=== PATIENT | female | born 1965 | race Caucasian/White ===

== ENCOUNTER 2016-11-01 16:34 | Inpatient (IN) | payer MEDICARE ==
[2016-11-01 16:34] VITALS: BMI 33.1
--- NOTE | 2016-11-01 17:19 | ED PDOC ---
HPI: Chest Pain Time Seen by Provider: 11/01/16 16:35 Chief Complaint (Nursing): Chest Pain Chief Complaint (Provider): Left sided chest pain History Per: Patient History/Exam Limitations: no limitations Onset/Duration Of Symptoms: Hrs Current Symptoms Are (Timing): Still Present Severity: None Additional Complaint(s): The patient is a 51yo female, PMHx of Afib with ablation done in 2012, anxiety, HTN, hyperthyroidsm, GERD, presents to the ED via EMS for evaluation of left sided chest pain and generalized discomfort. Pt reports today around 1400, she was at home and felt dizzy and nauseous - states she lied down for 20 mins after which her symptoms resolved. Pt states she originally though her symptoms were due to an anxiety attack. Then reports while outside, around 1515, she had another episode of nausea accompanied with left sided chest pain, states she felt her heart race and as if she was going to fall. Pt also reports nausea and dizziness during the seconds episode of her symptoms. Pt states she currently "feels very sick". She reports she takes a baby aspirin daily. She offers no additional medical complaints. Ablation done under Dr. Alexander at [facility] in 2012. Of note, pt reports she had one episode of AFib since the ablation. Pt currently follows up with [facility] Past Medical History Reviewed: Historical Data, Nursing Documentation, Vital Signs Vital Signs: Last Vital Signs Temp 98.8 F 11/06/16 13:00 Pulse 104 H 11/06/16 13:00 Resp 18 11/06/16 13:00 BP 120/89 11/06/16 13:00 Pulse Ox 95 11/06/16 13:00 - Medical History PMH: Anemia, Anxiety, Arthritis, Atrial Fibrillation (s/p Heart Catheter Ablation in 2012), Cardia Arrhythmia (A-FIB/HAD ABLATION), Depression, Fractures (R ankle), HTN, Hyperthyroidism, Kidney Stones (STILL THERE "TINY"), Migraine, Pneumonia, Seizures (ALLERGIC REACTION TO IV IODINE) Denies: Chronic Kidney Disease - Surgical History Surgical History: Cholecystectomy (1997) Other surgeries: hysterectomy, right ankle surgery, left knee surgery, fibroid removal - Family History Family History: States: Hypertension - Home Medications Home Medications: Ambulatory Orders Medication Instructions Recorded Desvenlafaxine Succinate [Pristiq] 50 mg PO HS 11/01/16 Ergocalciferol (Vitamin D2) 50,000 units PO QWK 11/01/16 [Vitamin D] Gabapentin [Neurontin] 600 mg PO QID 11/01/16 Omeprazole 20 mg PO DAILY 11/01/16 Oxycodone HCl/Acetaminophen 1 tab PO Q6 PRN 11/01/16 [Percocet 7.5-325 mg Tablet] Valsartan/Hydrochlorothiazide 1 tab PO DAILY 11/01/16 [Diovan Hct 160-12.5 mg Tab] busPIRone [Buspar] 10 mg PO TID 11/01/16 methIMAzole [Tapazole] 10 mg PO MWF 11/01/16 Propranolol [Inderal] 10 mg PO BID #60 tab 11/06/16 - Allergies Allergies/Adverse Reactions: Allergies Allergy/AdvReac Type Severity Reaction Status Date / Time cefazolin sodium [From Anc] Allergy RASH Verified 07/13/15 07:37 iodine Allergy convulsions Verified 07/13/15 07:37 meperidine HCl [From Demerol] AdvReac anxiety Verified 07/13/15 07:37 prochlorperazine AdvReac anxiety Verified 07/13/15 07:37 [From Compazine] prochlorperazine edisylate AdvReac anxiety Verified 07/13/15 07:37 [From Compazine] prochlorperazine maleate AdvReac anxiety Verified 07/13/15 07:37 [From Compazine] Review of Systems ROS Statement: Except As Marked, All Systems Reviewed And Found Negative Constitutional: Positive for: Other (general discomfort) Cardiovascular: Positive for: Chest Pain, Light Headedness Gastrointestinal: Positive for: Nausea Psych: Positive for: Anxiety Physical Exam - Reviewed Nursing Documentation Reviewed: Yes Vital Signs Reviewed: Yes - Physical Exam Appears: Positive for: Well, Non-toxic, No Acute Distress Head Exam: Positive for: ATRAUMATIC, NORMAL INSPECTION, NORMOCEPHALIC Skin: Positive for: Normal Color, Warm Eye Exam: Positive for: Normal appearance Neck: Positive for: Normal, Supple Cardiovascular/Chest: Positive for: Bradycardia Respiratory: Positive for: Normal Breath Sounds. Negative for: Respiratory Distress Gastrointestinal/Abdominal: Positive for: Normal Exam Extremity: Negative for: Pedal Edema, Calf Tenderness, Deformity, Swelling Neurologic/Psych: Positive for: Alert, Oriented. Negative for: Motor/Sensory Deficits - Laboratory Results Result Diagrams: 11/02/16 05:00 11/06/16 05:00 - ECG Interpretation Of ECG: Atrial fibrillation Rapid ventricular response No ST elevation Rate: 104 Time: 2004 Repeat EKG shows rate decreased to 80 but pt still in AFib. Rate: 104 O2 Sat by Pulse Oximetry: 98 (RA) Pulse Ox Interpretation: Normal Medical Decision Making Medical Decision Making: Time: 1649 Impression: Recurrence of AFib r/o CAD Plan: -- CBC -- CMP -- Troponin -- CXR -- Cardizem Reassess Time: 1944 Case discussed with family practice resident who is aware. Pt to be admitted to telemetry. Time: [address] Younger, questioned documents examiner functional manager. Time: [address] Barrera who is aware. Scribe Attestation: Documented by Sandy Saab acting as a scribe for Nadia Turpin MD. Provider Attestation: All medical record entries made by the Scribe were at my direction and personally dictated by me. I have reviewed the chart and agree that the record accurately reflects my personal performance of the history, physical exam, medical decision making, and the department course for this patient. I have also personally directed, reviewed, and agree with the discharge instructions and disposition. Disposition - Clinical Impression Clinical Impression: Acute chest pain - Patient ED Disposition Is Patient to be Admitted: Yes - Disposition Disposition Time: 18:00 Condition: GOOD
--- NOTE | 2016-11-01 17:43 | RAD ---
HISTORY: Chest pain COMPARISON: 09/16/2010. TECHNIQUE: Chest PA and lateral FINDINGS: LUNGS: The lungs are well inflated and clear. PLEURA: No significant pleural effusion identified. No pneumothorax apparent. CARDIOVASCULAR: Normal. OSSEOUS STRUCTURES: No significant abnormalities. VISUALIZED UPPER ABDOMEN: Normal. OTHER FINDINGS: None. IMPRESSION: No active pulmonary disease.
[2016-11-01 18:07] LABS: BASO # 0.1 K/uL (0.0-0.2); BASO % 0.8 % (0.0-2.0); HEMOGLOBIN 14.5 g/dL (12.0-16.0); LYMPH # 1.3 K/uL (1.0-4.3); LYMPH % 20.4 % (20.0-40.0); MEAN CELL VOLUME 84.7 fl (81.0-99.0); MEAN CORPUSCULAR HEMOGLOBIN 28.1 pg (27.0-31.0); MEAN CORPUSCULAR HGB CONC 33.2 g/dL (33.0-37.0); MEAN PLATELET VOLUME 9.3 fl (7.2-11.7); MONO # 0.3 K/uL (0.0-0.8); MONO % 4.8 % (0.0-10.0); NEUT # 4.8 K/uL (1.8-7.0); NRBC % 0.1 % (0.0-0.0); RBC 5.14 Mil/uL (3.80-5.20); WHITE BLOOD COUNT 6.5 K/uL (4.8-10.8)
[2016-11-01 18:12] LABS: ALB/GLOB RATIO 1.4 (1.0-2.1); ALBUMIN 4.7 g/dL (3.5-5.0); ALT/SGPT 211 U/L (9-52); AST/SGOT 249 U/L (14-36); BLOOD UREA NITROGEN 11 mg/dl (7-17); CALCIUM 9.4 mg/dL (8.4-10.2); GFR AFRICAN-AMERICAN > 60; GFR NON-AFRICAN AMERICAN > 60
[2016-11-01] MEDS ORDERED: Oxycodone/Acetaminophen 5/325 mg Tab PO PRN ×2 (20:41→21:51)
[2016-11-01] MEDS ORDERED: Dextrose 5%/0.45% NS 1,000 ML IV SCH (20:45)
--- NOTE | 2016-11-01 21:08 | CP.PCM.HP ---
History of Present Illness - History of Present Illness History of Present Illness: 51 yo F w PMHx of Afib w ablation 2012, GERD, and Hyperthyroidism is admitted due to nausea, dizziness, and intermittent left-sided chest pain. Her recent complaints began at 2pm this afternoon, when she became dizzy and attributed it to being a "panic attack." Soon thereafter, while in the checkout line in a store, she stated feeling a discomfort in the left side of her chest to go along with the new onset palpitations that she was feeling. She denies fevers/ chills, vomiting, diarrhea, diaphoresis, LOC, neck/jaw/arm pain, or abdominal pain. Back in 2012, she underwent an ablation to resolve her Afib, which was seemingly successful until 1-2 years ago when she had a short episode of Afib. Today barnett only the second time s/p ablation that she's experienced an episode of Afib. She also denies any SOB, dyspnea, cough, hematuria, or dysuria, but she does state often seeing Dr Fagan for significant chronic pain resulting from cervical disc herniations. PMD: None regularly Psych: Dr Atkinson Cosmetology Instructor: Dr Fagan PMHx: Afib s/p ablation w Dr. Alexander at [facility] in , Hyperthyroidism, GERD, chronic cervical and b/l shoulder pain PSHx: Ablation for Afib [place] [address] 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 SHx: denies etoh, cigarettes, illicit drugs FHx: None ED Course: -CBC -CMP -Troponin x1 -EKGs x2 -CXR -ASA 325 -Cardizem 30mg PO x1 -Cardizem 10mg IVP x1 Present on Admission - Present on Admission Any Indicators Present on Admission: No History of DVT/PE: No History of Uncontrolled Diabetes: No Urinary Catheter: No Decubitus Ulcer Present: No Review of Systems - Review of Systems All systems: reviewed and no additional remarkable complaints except (see HPI) Past Patient History - Past Medical History & Family History Past Medical History?: Yes - Past Social History Smoking Status: Never Smoked - CARDIAC Hx Atrial Fibrillation: Yes (s/p Heart Catheter Ablation in 2012) Hx Cardia Arrhythmia: Yes (A-FIB/HAD ABLATION) Hx Hypertension: Yes - PULMONARY Hx Pneumonia: Yes - NEUROLOGICAL Hx Migraine: Yes Hx Seizures: Yes (ALLERGIC REACTION TO IV IODINE) - HEENT Hx HEENT Problems: No - RENAL Hx Chronic Kidney Disease: No Hx Kidney Stones: Yes (STILL THERE "TINY") - ENDOCRINE/METABOLIC Hx Hyperthyroidism: Yes - HEMATOLOGICAL/ONCOLOGICAL Hx Anemia: Yes - INTEGUMENTARY Hx Dermatological Problems: No - MUSCULOSKELETAL/RHEUMATOLOGICAL Hx Arthritis: Yes Hx Fractures: Yes (R ankle) - GASTROINTESTINAL Hx Gastrointestinal Disorders: Yes Hx Gastroesophageal Reflux: Yes - GENITOURINARY/GYNECOLOGICAL Hx Genitourinary Disorders: No - PSYCHIATRIC Hx Anxiety: Yes Hx Depression: Yes - SURGICAL HISTORY Hx Cholecystectomy: Yes (1997) - ANESTHESIA Hx Anesthesia: Yes Meds Allergies/Adverse Reactions: Allergies Allergy/AdvReac Type Severity Reaction Status Date / Time cefazolin sodium [From Ancef] Allergy RASH Verified 07/13/15 07:37 iodine Allergy convulsions Verified 07/13/15 07:37 meperidine HCl [From Demerol] AdvReac anxiety Verified 07/13/15 07:37 prochlorperazine AdvReac anxiety Verified 07/13/15 07:37 [From Compazine] prochlorperazine edisylate AdvReac anxiety Verified 07/13/15 07:37 [From Compazine] prochlorperazine maleate AdvReac anxiety Verified 07/13/15 07:37 [From Compazine] Physical Exam - Constitutional Appears: Non-toxic, No Acute Distress - Head Exam Head Exam: ATRAUMATIC, NORMOCEPHALIC - Eye Exam Eye Exam: EOMI Pupil Exam: PERRL - ENT Exam ENT Exam: Mucous Membranes Moist - Neck Exam Neck exam: Positive for: Full Rom, Normal Inspection - Respiratory Exam Respiratory Exam: Clear to Auscultation Bilateral, NORMAL BREATHING PATTERN. absent: Wheezes - Cardiovascular Exam Cardiovascular Exam: Irregular Rhythm. absent: Tachycardia - GI/Abdominal Exam GI & Abdominal Exam: Normal Bowel Sounds, Soft, Tenderness (mildly RUQ and epigastric). absent: Firm, Rigid Additional comments: obese - Extremities Exam Extremities exam: Negative for: calf tenderness, pedal edema - Neurological Exam Neurological exam: Alert, Oriented x3 - Psychiatric Exam Psychiatric exam: Normal Affect, Normal Mood - Skin Skin Exam: Dry, Intact, Normal Color, Warm Results - Vital Signs Recent Vital Signs: Last Vital Signs Temp 97.9 F 11/01/16 19:26 Pulse 104 H 11/01/16 20:29 Resp 16 11/01/16 19:26 BP 108/65 11/01/16 19:26 Pulse Ox 98 11/01/16 20:29 - Labs Result Diagrams: 11/01/16 17:52 11/01/16 17:52 Assessment & Plan - Assessment and Plan (Free Text) Plan: 51 yo F w PMHx of Afib w ablation 2012, GERD, and Hyperthyroidism is admitted due to nausea, dizziness, and intermittent left-sided chest pain 1) Recurrent Afib -Previous h/o Afib with ablation done in 2012 and subsequent arrhythmia resolution -Dr Younger onboard -EKG confirmation of rhythm -Cardizem 10mg IVP x1 [ED] -Cardizem 30mg PO x1 [ED] -D5 1/2NS 1L had been given in preparation for NPO status; however, that was not to be the case as per Cardio -Lovenox 70 mg SC BID -Valsartan 160mg PO Daily (Home Med) -Hydrochlorothiazide 12.5mg PO Daily (Home Med) --d/c Norvasc 10mg (Home Med) as per Cardio --start Inderal 10mg BID as per Cardio -f/u Thyroid Panel -f/u further Cardio Recommendations 2) Elevated LFTs -Obesity VS Chronic Medication VS Tylenol Use (pt claims only beginning few days ago) -AST/ALT: 249/211, ALP: 160 -PT/INR/PTT: 11.7/1.0/35.3 -Considered Abd CT w IV Contrast to evaluate --However, scan cancelled as patient is allergic to IV Contrast -Instead, ordered RUQ U/S -d/c'ed Percocet 7.5 (Home Med) in favor of it's non-Tylenol half, Oxycodone -f/u Abd U/S -Consider GI Consult 3) Chest Pain r/o ACS -EKG indicated Afib, but no acute infarct observed -Troponin Neg x1 -f/u Troponin x2 -f/u EKG 4) Chronic Pain -Oxycodone 5mg PO Q6H PRN moderate -Oxycodone 7.5mg PO Q6H PRN severe -f/u management of pain -f/u LFTs for possible return to Percocet 7.5 (Home Med) -f/u Physiatry Consult 5) Hyperthyroidism -Methimazole 10mg PO Mon & Thurs -f/u Thyroid Panel 6) Anxiety/Depression -Buspar 10mg PO TID -Desvenlafaxine 50mg PO HS [to be brought in by family] -Gabapentin 600mg PO QID [pt reiterates this is for Anxiety and not any form of Neuropathy or Pain management] -Consider reaching to her Psychiatrist for medication discussion; Elevated LFTs VS Confirmation of therapy 7) DVT Prophylaxis -Lovenox 70 mg SC BID
[2016-11-01 21:14] LABS: PARTIAL THROMBOPLASTIN TIME 35.3 Seconds (25.6-37.1); PROTHROMBIN TIME 11.7 Seconds (9.8-13.1)
[2016-11-01] MEDS ORDERED: ACETAMINOPHEN PO PRN ×3 (21:43→21:49)
[2016-11-01] MEDS ORDERED: OXYCODONE HCL PO PRN ×3 (21:43→21:49)
--- NOTE | 2016-11-01 23:02 | CP.PCM.CON ---
History of Present Illness - History of Present Illness History of Present Illness: 51 y/o female h/o hyperthyroidism and goiter on Tapazol 10 mg twice weekly H/O A Fib S/p ablation 2012 at [facility] had at least one episode of A fib in the past after ablation presented with chest pain and palpitation and found in A Fib Patient did not tolate either Pradexa or Xeralto in the past PMHx Hyperthyroidism, Goiter, Total abdomen hysterectomy for utrine bleeding Review of Systems - EENT Eyes: absent: As Per HPI, Blind Spots, Blurred Vision, Change in Vision, Decreased Night Vision, Diplopia, Discharge, Dry Eye, Exophthalmos, Floaters, Irritation, Itchy Eyes, Loss of Peripheral Vision, Pain, Photophobia, Requires Corrective Lenses, Sees Flashes, Spots in Vision, Tunnel Vision, Other Visual Disturbances, Loss of Vision, Other - Cardiovascular Cardiovascular: Chest Pain, Rapid Heart Rate - Respiratory Respiratory: absent: As Per HPI, Cough, Dyspnea, Hemoptysis, Dyspnea on Exertion , Wheezing, Snoring, Stridor, Pain on Inspiration, Chest Congestion, Excessive Mucous Production, Change in Mucous Color, Pain with Coughing, Other Past Patient History - Past Medical History & Family History Past Medical History?: Yes - Past Social History Smoking Status: Never Smoked - CARDIAC Hx Atrial Fibrillation: Yes (s/p Heart Catheter Ablation in 2012) Hx Cardia Arrhythmia: Yes (A-FIB/HAD ABLATION) Hx Hypertension: Yes - PULMONARY Hx Pneumonia: Yes - NEUROLOGICAL Hx Migraine: Yes Hx Seizures: Yes (ALLERGIC REACTION TO IV IODINE) - HEENT Hx HEENT Problems: No - RENAL Hx Chronic Kidney Disease: No Hx Kidney Stones: Yes (STILL THERE "TINY") - ENDOCRINE/METABOLIC Hx Hyperthyroidism: Yes - HEMATOLOGICAL/ONCOLOGICAL Hx Anemia: Yes - INTEGUMENTARY Hx Dermatological Problems: No - MUSCULOSKELETAL/RHEUMATOLOGICAL Hx Arthritis: Yes Hx Fractures: Yes (R ankle) - GASTROINTESTINAL Hx Gastrointestinal Disorders: Yes Hx Gastroesophageal Reflux: Yes - GENITOURINARY/GYNECOLOGICAL Hx Genitourinary Disorders: No - PSYCHIATRIC Hx Anxiety: Yes Hx Depression: Yes - SURGICAL HISTORY Hx Cholecystectomy: Yes (1997) - ANESTHESIA Hx Anesthesia: Yes Meds Allergies/Adverse Reactions: Allergies Allergy/AdvReac Type Severity Reaction Status Date / Time cefazolin sodium [From [facility]] Allergy RASH Verified 07/13/15 07:37 iodine Allergy convulsions Verified 07/13/15 07:37 meperidine HCl [From Demerol] AdvReac anxiety Verified 07/13/15 07:37 prochlorperazine AdvReac anxiety Verified 07/13/15 07:37 [From Compazine] prochlorperazine edisylate AdvReac anxiety Verified 07/13/15 07:37 [From Compazine] prochlorperazine maleate AdvReac anxiety Verified 07/13/15 07:37 [From Compazine] - Medications Medications: Current Medications Amlodipine Besylate (Norvasc) 10 mg PO DAILY REPLACED BY [facility] Aspirin (Ecotrin) 81 mg PO DAILY REPLACED BY [facility] Buspirone HCl (Buspar) 10 mg PO TID REPLACED BY [facility] Enoxaparin Sodium (Lovenox) 40 mg SC DAILY REPLACED BY [facility] PRN Reason: Protocol Famotidine (Pepcid) 20 mg IVP HS REPLACED BY [facility] Gabapentin (Neurontin) 600 mg PO QID REPLACED BY [facility] Home Med (Desvenlafaxine Succinate [Pristiq]) 50 mg PO HS REPLACED BY [facility] Home Med (Valsartan/Hydrochlorothiazide [Diovan Hct 160-12.5 Mg Tab]) 1 tab PO DAILY REPLACED BY [facility] Dextrose/Sodium Chloride (Dextrose 5%/0.45% Ns 1000 Ml) 1,000 mls @ 84 mls/hr IV .[id number] REPLACED BY [facility] Stop: 11/02/16 08:39 Methimazole (Tapazole) 10 mg PO ROSAURA REPLACED BY [facility] Methimazole (Tapazole) 10 mg PO MON REPLACED BY [facility] Oxycodone/Acetaminophen (Percocet 5/325 Mg Tab) 1 tab PO Q6 PRN PRN Reason: Pain, moderate (4-7) Stop: 11/04/16 20:42 Oxycodone/Acetaminophen (Percocet 5/325 Mg Tab) 2 tab PO Q6 PRN PRN Reason: Pain, moderate (4-7) Stop: 11/04/16 21:52 Physical Exam - Head Exam Head Exam: NORMAL INSPECTION - Eye Exam Eye Exam: Normal appearance - Neck Exam Neck exam: Positive for: Thyromegaly Additional comments: large goiter - Respiratory Exam Respiratory Exam: NORMAL BREATHING PATTERN - Cardiovascular Exam Cardiovascular Exam: Irregular Rhythm - Extremities Exam Extremities exam: Positive for: normal inspection Results - Vital Signs Recent Vital Signs: Last Vital Signs Temp 98.6 F 11/01/16 21:57 Pulse 90 11/01/16 21:57 Resp 20 11/01/16 21:57 BP 119/81 11/01/16 21:57 Pulse Ox 97 11/01/16 21:57 - Labs Result Diagrams: 11/01/16 17:52 11/01/16 17:52 Labs: Laboratory Results - last 24 hr 11/01/16 11/01/16 20:41 20:41 PT 11.7 INR 1.0 APTT 35.3 TSH 3rd Generation 1.20 Assessment & Plan - Assessment and Plan (Free Text) Assessment: recurrent A Fib S/p ablation HTN Hyperthyroidism Anxiety Elevated liver enzymes Plan: D/C Amlodipine Start Inderal 10 mg BID Cont. Aspirin (Ecotrin) 81 mg PO DAILY REPLACED BY [facility] Buspirone HCl (Buspar) 10 mg PO TID REPLACED BY [facility] Enoxaparin Sodium (Lovenox) 40 mg SC DAILY REPLACED BY [facility] PRN Reason: Protocol Famotidine (Pepcid) 20 mg IVP HS REPLACED BY [facility] Gabapentin (Neurontin) 600 mg PO QID REPLACED BY [facility] Home Med (Desvenlafaxine Succinate [Pristiq]) 50 mg PO HS REPLACED BY [facility] Home Med (Valsartan/Hydrochlorothiazide [Diovan Hct 160-12.5 Mg Tab]) 1 tab PO DAILY REPLACED BY [facility] Dextrose/Sodium Chloride (Dextrose 5%/0.45% Ns 1000 Ml) 1,000 mls @ 84 mls/hr IV .[id number] REPLACED BY [facility] Stop: 11/02/16 08:39 Methimazole (Tapazole) 10 mg PO ROSAURA REPLACED BY [facility] Methimazole (Tapazole) 10 mg PO MON REPLACED BY [facility] Oxycodone/Acetaminophen (Percocet 5/325 Mg Tab) 1 tab PO Q6 PRN PRN Reason: Pain, moderate (4-7) Stop: 11/04/16 20:42 Oxycodone/Acetaminophen (Percocet 5/325 Mg Tab) 2 tab PO Q6 PRN PRN Reason: Pain, moderate (4-7) Stop: 11/04/16 21:52 SQ lovenox Echo Endo consult
[2016-11-01] MEDS ORDERED: oxyCODONE 10 mg Immediate Release Tab PO PRN ×2 (23:35→23:50)
[2016-11-01] MEDS: oxyCODONE 5 mg Immediate Release Tab PO PRN (23:55)
[2016-11-02] MEDS: oxyCODONE 5 mg Immediate Release Tab PO PRN ×4 (05:33→20:09)
[2016-11-02 06:23] LABS: HEMOGLOBIN 13.4 g/dL (12.0-16.0); MEAN CELL VOLUME 85.8 fl (81.0-99.0); MEAN CORPUSCULAR HEMOGLOBIN 28.3 pg (27.0-31.0); RBC 4.75 Mil/uL (3.80-5.20); RED CELL DISTRIBUTION WIDTH 14.2 % (11.5-14.5); WHITE BLOOD COUNT 5.8 K/uL (4.8-10.8)
[2016-11-02 06:56] LABS: ALB/GLOB RATIO 1.3 (1.0-2.1); ALBUMIN 3.9 g/dL (3.5-5.0); ALT/SGPT 190 U/L (9-52); AST/SGOT 205 U/L (14-36); BLOOD UREA NITROGEN 12 mg/dl (7-17); CALCIUM 8.9 mg/dL (8.4-10.2); GFR AFRICAN-AMERICAN > 60; GFR NON-AFRICAN AMERICAN > 60
[2016-11-02 07:07] LABS: T4 7.94 ug/dl (5.5-11.0)
--- NOTE | 2016-11-02 08:12 | CP.PCM.PN ---
Subjective - Date & Time of Evaluation Date of Evaluation: 11/02/16 Time of Evaluation: 08:03 - Subjective Subjective: Patient seen and examined this morning. she is feeling better than yesterday but still anxious and feeling mild squeezing chest pain. Patient denies headache , n/v or palpitations. also complaining of neck and lower back pain. Objective - Vital Signs/Intake and Output Vital Signs (last 24 hours): Temp Pulse Resp BP Pulse Ox 98.4 F 105 H 18 122/86 96 11/02/16 05:14 11/02/16 05:14 11/02/16 05:14 11/02/16 05:14 11/02/16 05:14 - Medications Medications: Current Medications Aspirin (Ecotrin) 81 mg PO DAILY [facility] Buspirone HCl (Buspar) 10 mg PO TID [facility] Enoxaparin Sodium (Lovenox) 70 mg SC BID [facility] PRN Reason: Protocol Famotidine (Pepcid) 20 mg IVP [facility] Last Admin: 11/01/16 23:57 Dose: 20 mg Gabapentin (Neurontin) 600 mg PO QID [facility] Last Admin: 11/02/16 00:04 Dose: 600 mg Home Med (Desvenlafaxine Succinate [Pristiq]) 50 mg PO [facility] Hydrochlorothiazide (Microzide) 12.5 mg PO DAILY [facility] Dextrose/Sodium Chloride (Dextrose 5%/0.45% Ns 1000 Ml) 1,000 mls @ 84 mls/hr IV .[id number] [facility] Stop: 11/02/16 08:39 Last Admin: 11/02/16 00:00 Dose: 84 mls/hr Methimazole (Tapazole) 10 mg PO [facility] Methimazole (Tapazole) 10 mg PO MON [facility] Oxycodone HCl (Oxycodone Immediate Release Tab) 5 mg PO Q6 PRN PRN Reason: Pain, moderate (4-7) Last Admin: 11/01/16 23:55 Dose: 5 mg Oxycodone HCl (Oxycodone Immediate Release Tab) 10 mg PO Q6 PRN PRN Reason: Pain, severe (8-10) Last Admin: 11/02/16 05:33 Dose: 10 mg Propranolol HCl (Inderal) 10 mg PO BID [facility] Valsartan (Diovan) 160 mg PO DAILY [facility] - Labs Labs: 11/02/16 05:00 11/02/16 05:00 PT 11.7 Seconds (9.8-13.1) 11/01/16 20:41 INR 1.0 (0.9-1.2) 11/01/16 20:41 APTT 35.3 Seconds (25.6-37.1) 11/01/16 20:41 - Constitutional Appears: Well, No Acute Distress (little Anxious this morning) - Head Exam Head Exam: ATRAUMATIC, NORMAL INSPECTION, NORMOCEPHALIC - Eye Exam Eye Exam: EOMI, Normal appearance - Neck Exam Neck Exam: Full ROM, Thyromegaly. absent: Lymphadenopathy - Respiratory Exam Respiratory Exam: Clear to Ausculation Bilateral, NORMAL BREATHING PATTERN. absent: Accessory Muscle Use, Chest Wall Tenderness, Decreased Breath Sounds, Wheezes - Cardiovascular Exam Cardiovascular Exam: Irregular Rhythm, +S1, +S2 - GI/Abdominal Exam GI & Abdominal Exam: Soft, Normal Bowel Sounds - Extremities Exam Extremities Exam: Full ROM, Normal Capillary Refill, Normal Inspection. absent : Calf Tenderness - Back Exam Back Exam: absent: CVA tenderness (L), CVA tenderness (R) - Neurological Exam Neurological Exam: Alert, Awake, CN II-XII Intact, Oriented x3 Neuro motor strength exam: Left Upper Extremity: 5, Right Upper Extremity: 5, Left Lower Extremity: 5, Right Lower Extremity: 5 - Psychiatric Exam Psychiatric exam: Anxious - Skin Skin Exam: Normal Color Assessment and Plan - Assessment and Plan (Free Text) Assessment: 51 yo F w PMHx of Afib w ablation 2012, HTN, GERD, Hyperthyroidism, depression, anxiety and Cervical & lower back disk herniation is admitted due to nausea, dizziness, and intermittent left-sided chest pain for 4 hours. Plan: Recurrent Afib with Ablation done in 2012 -Previous history of short episode of A-fib 2 years ago after Ablation -Lovenox 70 mg SC BID -as per patient, she "didn't like" Pradexa, Xeralto and warfarin,due to hot flashes -CHADS-VASc Score is 2points: moderate-high risk and should otherwise be an anticoagulation candidate. -Dr Younger onboard, cardiac recommendation appreciated -as per Cardio discontinue Norvasc 10mg (Home Med) -start propranolol 10mg BID -f/u Echo -discontinue ASA -Acute ACS ruled out, Troponin Neg x 3 -f/u further Cardio Recommendations Elevated LFTs -Obesity VS Chronic Medication VS Tylenol Use (pt claims only beginning few days ago) -AST/ALT: 205/190, ALP: 135, GGT: 253 -PT/INR/PTT: 11.7/1.0/35.3 -switched Percocet 7.5 (Home Med) to Oxycodone due to elevated LFTs -f/u Abd U/S HTN, controlled -contine Valsartan 160mg PO Daily (Home Med) -contine Hydrochlorothiazide 12.5mg PO Daily (Home Med) Chronic Pain secondery to Cervical and Lumbar disk herniation -Oxycodone 5mg PO Q6H PRN moderate -Oxycodone 7.5mg PO Q6H PRN severe -f/u management of pain -f/u LFTs for possible return to Percocet 7.5 (Home Med) Hyperthyroidism -Endocrine, Dr. Lindo consulted -Methimazole 10mg PO Mon & Thurs -Thyroid Panel: Free T4: 0.83, Thyroxine (T4) 7.94, ans TSH: 2.31 Anxiety/Depression -Buspar 10mg PO TID -Desvenlafaxine 50mg PO HS [to be brought in by family] -Gabapentin 600mg PO QID [pt reiterates this is for Anxiety and not any form of Neuropathy or Pain management] DVT Prophylaxis -Lovenox 70 mg SC BID
[2016-11-02] MEDS ORDERED: Enoxaparin 40 mg Syringe SC SCH ×2 (09:00)
[2016-11-02] MEDS ORDERED: Enoxaparin 80 mg Syringe SC SCH (09:00)
[2016-11-02] MEDS ORDERED: Patient's Own Med (Valsartan/Hydrochlorothiazide [Diovan Hct 160-12.5 Mg Tab] 1 TAB) PO SCH (09:00)
[2016-11-02 09:37] LABS: BARBITURATES, UR NEGATIVE (NEGATIVE); BENZODIAZEPINES, UR NEGATIVE (NEGATIVE); OPIATES, UR POSITIVE (NEGATIVE); PHENCYCLIDINE, UR NEGATIVE (NEGATIVE)
[2016-11-02] MEDS: Enoxaparin 100 mg Syringe SC SCH ×2 (12:07→22:00)
[2016-11-02 12:44] LABS: GAMMA GLUTAMYL TRANSPEPTIDASE 253 U/L (8-78)
--- NOTE | 2016-11-02 13:20 | CP.PCM.PN ---
Subjective - Date & Time of Evaluation Date of Evaluation: 11/02/16 Time of Evaluation: 13:18 - Subjective Subjective: c/o nausea, vomiting and palpitation Objective - Vital Signs/Intake and Output Vital Signs (last 24 hours): Temp Pulse Resp BP Pulse Ox 97.6 F 104 H 18 131/73 95 11/02/16 12:00 11/02/16 12:00 11/02/16 12:00 11/02/16 12:00 11/02/16 12:00 - Medications Medications: Current Medications Aspirin (Ecotrin) 81 mg PO DAILY [facility] Last Admin: 11/02/16 09:21 Dose: 81 mg Buspirone HCl (Buspar) 10 mg PO TID [facility] Last Admin: 11/02/16 12:10 Dose: 10 mg Enoxaparin Sodium (Lovenox) 90 mg SC Q12 [facility] PRN Reason: Protocol Last Admin: 11/02/16 12:07 Dose: 90 mg Famotidine (Pepcid) 20 mg IVP [facility] Last Admin: 11/01/16 23:57 Dose: 20 mg Gabapentin (Neurontin) 600 mg PO QID [facility] Last Admin: 11/02/16 12:09 Dose: 600 mg Home Med (Desvenlafaxine Succinate [Pristiq]) 50 mg PO [facility] Hydrochlorothiazide (Microzide) 12.5 mg PO DAILY [facility] Last Admin: 11/02/16 09:21 Dose: 12.5 mg Methimazole (Tapazole) 10 mg PO [facility] Methimazole (Tapazole) 10 mg PO MON [facility] Ondansetron HCl (Zofran Inj) 4 mg IVP Q6 PRN PRN Reason: Nausea/Vomiting Last Admin: 11/02/16 12:03 Dose: 4 mg Oxycodone HCl (Oxycodone Immediate Release Tab) 5 mg PO Q6 PRN PRN Reason: Pain, moderate (4-7) Last Admin: 11/02/16 09:28 Dose: 5 mg Oxycodone HCl (Oxycodone Immediate Release Tab) 10 mg PO Q6 PRN PRN Reason: Pain, severe (8-10) Last Admin: 11/02/16 05:33 Dose: 10 mg Propranolol HCl (Inderal) 10 mg PO BID [facility] Last Admin: 11/02/16 09:20 Dose: 10 mg Valsartan (Diovan) 160 mg PO DAILY [facility] Last Admin: 11/02/16 09:21 Dose: 160 mg - Labs Labs: 11/02/16 05:00 11/02/16 05:00 PT 11.7 Seconds (9.8-13.1) 11/01/16 20:41 INR 1.0 (0.9-1.2) 11/01/16 20:41 APTT 35.3 Seconds (25.6-37.1) 11/01/16 20:41 - Head Exam Head Exam: NORMAL INSPECTION - Eye Exam Eye Exam: Normal appearance - Neck Exam Neck Exam: Thyromegaly - Respiratory Exam Respiratory Exam: NORMAL BREATHING PATTERN - Cardiovascular Exam Cardiovascular Exam: Irregular Rhythm - GI/Abdominal Exam GI & Abdominal Exam: Normal Bowel Sounds - Extremities Exam Extremities Exam: Normal Inspection Assessment and Plan - Assessment and Plan (Free Text) Assessment: Recurrent A Fib after ablation hyperthyroidism (thyroid panel WNL) Goiter Hepatitis Plan: Cont. Buspirone HCl (Buspar) 10 mg PO TID [facility] Last Admin: 11/02/16 12:10 Dose: 10 mg Enoxaparin Sodium (Lovenox) 90 mg SC Q12 [facility] PRN Reason: Protocol Last Admin: 11/02/16 12:07 Dose: 90 mg Famotidine (Pepcid) 20 mg IVP [facility] Last Admin: 11/01/16 23:57 Dose: 20 mg Gabapentin (Neurontin) 600 mg PO QID [facility] Last Admin: 11/02/16 12:09 Dose: 600 mg Home Med (Desvenlafaxine Succinate [Pristiq]) 50 mg PO [facility] Hydrochlorothiazide (Microzide) 12.5 mg PO DAILY [facility] Last Admin: 11/02/16 09:21 Dose: 12.5 mg Methimazole (Tapazole) 10 mg PO [facility] Methimazole (Tapazole) 10 mg PO MON [facility] Ondansetron HCl (Zofran Inj) 4 mg IVP Q6 PRN PRN Reason: Nausea/Vomiting Last Admin: 11/02/16 12:03 Dose: 4 mg Oxycodone HCl (Oxycodone Immediate Release Tab) 5 mg PO Q6 PRN PRN Reason: Pain, moderate (4-7) Last Admin: 11/02/16 09:28 Dose: 5 mg Oxycodone HCl (Oxycodone Immediate Release Tab) 10 mg PO Q6 PRN PRN Reason: Pain, severe (8-10) Last Admin: 11/02/16 05:33 Dose: 10 mg Propranolol HCl (Inderal) 10 mg PO BID [facility] Last Admin: 11/02/16 09:20 Dose: 10 mg Valsartan (Diovan) 160 mg PO DAILY [facility] Last Admin: 11/02/16 09:21 Dose: 160 mg D/C ASA Echo is pending Consider GI evaluation
[2016-11-02 13:23] LABS: HEPATITIS B SURFACE AG NEGATIVE (NEGATIVE)
[2016-11-02 13:28] LABS: HEPATITIS A IGM NEGATIVE (NEGATIVE)
[2016-11-02 13:29] LABS: HEPATITIS B CORE AB NEGATIVE (NEGATIVE)
[2016-11-02 13:41] LABS: HEPATITIS C ANTIBODY NEGATIVE (NEGATIVE)
--- NOTE | 2016-11-02 14:51 | CARD ---
APPROVED REPORT EKG Measurement Heart [id number] <Conclusion> Atrial fibrillation Nonspecific T wave abnormality Abnormal ECG
--- NOTE | 2016-11-02 14:52 | CARD ---
APPROVED REPORT EKG Measurement Heart [id number] <Conclusion> Atrial fibrillation Abnormal ECG
[2016-11-03 08:15] LABS: ALB/GLOB RATIO 1.5 (1.0-2.1); ALBUMIN 4.2 g/dL (3.5-5.0); ALT/SGPT 217 U/L (9-52); AST/SGOT 101 U/L (14-36); BLOOD UREA NITROGEN 11 mg/dl (7-17); CALCIUM 9.4 mg/dL (8.4-10.2); GFR AFRICAN-AMERICAN > 60; GFR NON-AFRICAN AMERICAN > 60
[2016-11-03] MEDS: Enoxaparin 100 mg Syringe SC SCH ×2 (10:42→21:35)
[2016-11-03] MEDS: oxyCODONE 5 mg Immediate Release Tab PO PRN ×3 (11:26→23:36)
--- NOTE | 2016-11-03 14:26 | CP.PCM.PN ---
Subjective - Date & Time of Evaluation Date of Evaluation: 11/03/16 Time of Evaluation: 09:00 - Subjective Subjective: Patient seen and examined at bedside. She reports mild SOB when ambulating to the restroom but denies chest pain or palpitations. She reports a "nausea attack " overnight which improved with zofran but denies any fevers, vomiting or diarrhea. Patient states she did not tolerate xarelto in the past due to "hot flashes" and heavy menstrual bleeding. Heart rate has remained well controlled. Patient tolerating diet. Objective - Vital Signs/Intake and Output Vital Signs (last 24 hours): Temp Pulse Resp BP Pulse Ox 98.6 F 83 20 124/67 98 11/03/16 12:00 11/03/16 12:00 11/03/16 12:00 11/03/16 12:00 11/03/16 12:00 - Medications Medications: Current Medications Aspirin (Ecotrin) 81 mg PO DAILY [facility] Last Admin: 11/03/16 11:29 Dose: 81 mg Buspirone HCl (Buspar) 10 mg PO TID [facility] Last Admin: 11/03/16 13:02 Dose: 10 mg Enoxaparin Sodium (Lovenox) 90 mg SC Q12 [facility] PRN Reason: Protocol Last Admin: 11/03/16 10:42 Dose: 90 mg Famotidine (Pepcid) 20 mg IVP [facility] Last Admin: 11/02/16 21:59 Dose: 20 mg Gabapentin (Neurontin) 600 mg PO QID [facility] Last Admin: 11/03/16 13:02 Dose: 600 mg Home Med (Desvenlafaxine Succinate [Pristiq]) 50 mg PO [facility] Last Admin: 11/02/16 22:20 Dose: 50 mg Hydrochlorothiazide (Microzide) 12.5 mg PO DAILY [facility] Last Admin: 11/03/16 10:41 Dose: 12.5 mg Methimazole (Tapazole) 10 mg PO [facility] Methimazole (Tapazole) 10 mg PO MON [facility] Ondansetron HCl (Zofran Inj) 4 mg IVP Q6 PRN PRN Reason: Nausea/Vomiting Last Admin: 11/03/16 02:41 Dose: 4 mg Oxycodone HCl (Oxycodone Immediate Release Tab) 5 mg PO Q6 PRN PRN Reason: Pain, moderate (4-7) Last Admin: 11/02/16 09:28 Dose: 5 mg Oxycodone HCl (Oxycodone Immediate Release Tab) 10 mg PO Q6 PRN PRN Reason: Pain, severe (8-10) Last Admin: 11/03/16 11:26 Dose: 10 mg Propranolol HCl (Inderal) 10 mg PO BID [facility] Last Admin: 11/03/16 10:40 Dose: 10 mg Valsartan (Diovan) 160 mg PO DAILY [facility] Last Admin: 11/03/16 10:41 Dose: 160 mg - Labs Labs: 11/02/16 05:00 11/03/16 06:30 PT 11.7 Seconds (9.8-13.1) 11/01/16 20:41 INR 1.0 (0.9-1.2) 11/01/16 20:41 APTT 35.3 Seconds (25.6-37.1) 11/01/16 20:41 - Constitutional Appears: Non-toxic, No Acute Distress - Head Exam Head Exam: ATRAUMATIC, NORMAL INSPECTION, NORMOCEPHALIC - Eye Exam Eye Exam: EOMI, PERRL - ENT Exam ENT Exam: Mucous Membranes Moist - Respiratory Exam Respiratory Exam: Clear to Ausculation Bilateral, NORMAL BREATHING PATTERN. absent: Rales, Rhonchi, Wheezes, Respiratory Distress - Cardiovascular Exam Cardiovascular Exam: Irregular Rhythm, +S1, +S2. absent: Tachycardia - GI/Abdominal Exam GI & Abdominal Exam: Soft, Normal Bowel Sounds. absent: Distended, Tenderness, Rebound - Extremities Exam Extremities Exam: absent: Calf Tenderness, Pedal Edema - Neurological Exam Neurological Exam: Alert, Awake, Oriented x3 - Psychiatric Exam Psychiatric exam: Anxious - Skin Skin Exam: Dry, Warm Assessment and Plan - Assessment and Plan (Free Text) Assessment: 51 yo female with PMH of Afib (s/p ablation in 2012), HTN, GERD, Hyperthyroidism , depression, anxiety and Cervical & lower back disk herniation presented to ED with nausea, dizziness, and intermittent left-sided chest pain for 4 hours. Patient was subsequently admitted with recurrent Afib. Plan: Recurrent Afib (S/P Ablation in 2012) -Previous history of short episode of A-fib 2 years ago after Ablation -Rate currently controlled on propanolol 10mg BID -CHADS-VASc Score is 2points: moderate-high risk and should otherwise be an anticoagulation candidate. -As per patient, she "didn't like" Xeralto and warfarin,due to hot flashes -Therapeutic Lovenox 70 mg SC BID -Pending Echo report -Acute ACS ruled out, Troponin Neg x 3 -Consult by Dr Younger appreciated. Will f/u further Cardio Recommendations regarding correction anticoagulation Elevated LFTs -Obesity VS Chronic Medication VS Tylenol Use (pt claims only beginning few days ago) -AST/ALT: 101/217, ALP: 160, GGT: 253 -PT/INR/PTT: 11.7/1.0/35.3 -Abd U/S completed this AM, pending report HTN, controlled -contine Valsartan 160mg PO Daily (Home Med) -contine Hydrochlorothiazide 12.5mg PO Daily (Home Med) Chronic Pain secondery to Cervical and Lumbar disk herniation -Oxycodone 5mg PO Q6H PRN moderate -Oxycodone 7.5mg PO Q6H PRN severe Hyperthyroidism -Endocrine, Dr. Lindo consulted -Methimazole 10mg PO Mon & Thurs -Thyroid Panel: Free T4: 0.83, Thyroxine (T4) 7.94, ans TSH: 2.31 Anxiety/Depression -Buspar 10mg PO TID -Desvenlafaxine 50mg PO HS [to be brought in by family] -Gabapentin 600mg PO QID [pt reiterates this is for Anxiety and not any form of Neuropathy or Pain management] DVT Prophylaxis -Lovenox 70 mg SC BID
--- NOTE | 2016-11-03 15:47 | CP.PCM.PN ---
Subjective - Date & Time of Evaluation Date of Evaluation: 11/03/16 Time of Evaluation: 15:44 - Subjective Subjective: c/o palpitation Objective - Vital Signs/Intake and Output Vital Signs (last 24 hours): Temp Pulse Resp BP Pulse Ox 98.6 F 83 20 124/67 98 11/03/16 12:00 11/03/16 12:00 11/03/16 12:00 11/03/16 12:00 11/03/16 12:00 - Medications Medications: Current Medications Aspirin (Ecotrin) 81 mg PO DAILY [facility] Last Admin: 11/03/16 11:29 Dose: 81 mg Buspirone HCl (Buspar) 10 mg PO TID [facility] Last Admin: 11/03/16 13:02 Dose: 10 mg Enoxaparin Sodium (Lovenox) 90 mg SC Q12 [facility] PRN Reason: Protocol Last Admin: 11/03/16 10:42 Dose: 90 mg Famotidine (Pepcid) 20 mg IVP [facility] Last Admin: 11/02/16 21:59 Dose: 20 mg Gabapentin (Neurontin) 600 mg PO QID [facility] Last Admin: 11/03/16 13:02 Dose: 600 mg Home Med (Desvenlafaxine Succinate [Pristiq]) 50 mg PO [facility] Last Admin: 11/02/16 22:20 Dose: 50 mg Hydrochlorothiazide (Microzide) 12.5 mg PO DAILY [facility] Last Admin: 11/03/16 10:41 Dose: 12.5 mg Methimazole (Tapazole) 10 mg PO [facility] Methimazole (Tapazole) 10 mg PO MON [facility] Ondansetron HCl (Zofran Inj) 4 mg IVP Q6 PRN PRN Reason: Nausea/Vomiting Last Admin: 11/03/16 02:41 Dose: 4 mg Oxycodone HCl (Oxycodone Immediate Release Tab) 5 mg PO Q6 PRN PRN Reason: Pain, moderate (4-7) Last Admin: 11/02/16 09:28 Dose: 5 mg Oxycodone HCl (Oxycodone Immediate Release Tab) 10 mg PO Q6 PRN PRN Reason: Pain, severe (8-10) Last Admin: 11/03/16 11:26 Dose: 10 mg Propranolol HCl (Inderal) 10 mg PO BID [facility] Last Admin: 11/03/16 10:40 Dose: 10 mg Valsartan (Diovan) 160 mg PO DAILY [facility] Last Admin: 11/03/16 10:41 Dose: 160 mg Warfarin Sodium (Coumadin) 5 mg PO QD5 [facility] PRN Reason: Protocol Stop: 11/03/16 17:01 - Labs Labs: 11/02/16 05:00 11/03/16 06:30 PT 11.7 Seconds (9.8-13.1) 11/01/16 20:41 INR 1.0 (0.9-1.2) 11/01/16 20:41 APTT 35.3 Seconds (25.6-37.1) 11/01/16 20:41 - Head Exam Head Exam: NORMAL INSPECTION - Neck Exam Neck Exam: Normal Inspection - Respiratory Exam Respiratory Exam: Clear to Ausculation Bilateral - Cardiovascular Exam Cardiovascular Exam: Irregular Rhythm - Extremities Exam Extremities Exam: Normal Inspection Assessment and Plan - Assessment and Plan (Free Text) Assessment: A Fib Hyperthyroidism Goiter Plan: Discussed with Dr. Boogie and PGY1 Start coumadin therapy F/U Echo Cont. Aspirin (Ecotrin) 81 mg PO DAILY [facility] Last Admin: 11/03/16 11:29 Dose: 81 mg Buspirone HCl (Buspar) 10 mg PO TID [facility] Last Admin: 11/03/16 13:02 Dose: 10 mg Enoxaparin Sodium (Lovenox) 90 mg SC Q12 [facility] PRN Reason: Protocol Last Admin: 11/03/16 10:42 Dose: 90 mg Famotidine (Pepcid) 20 mg IVP [facility] Last Admin: 11/02/16 21:59 Dose: 20 mg Gabapentin (Neurontin) 600 mg PO QID [facility] Last Admin: 11/03/16 13:02 Dose: 600 mg Home Med (Desvenlafaxine Succinate [Pristiq]) 50 mg PO HS [facility] Last Admin: 11/02/16 22:20 Dose: 50 mg Hydrochlorothiazide (Microzide) 12.5 mg PO DAILY [facility] Last Admin: 11/03/16 10:41 Dose: 12.5 mg Methimazole (Tapazole) 10 mg PO [facility] Methimazole (Tapazole) 10 mg PO MON [facility] Ondansetron HCl (Zofran Inj) 4 mg IVP Q6 PRN PRN Reason: Nausea/Vomiting Last Admin: 11/03/16 02:41 Dose: 4 mg Oxycodone HCl (Oxycodone Immediate Release Tab) 5 mg PO Q6 PRN PRN Reason: Pain, moderate (4-7) Last Admin: 11/02/16 09:28 Dose: 5 mg Oxycodone HCl (Oxycodone Immediate Release Tab) 10 mg PO Q6 PRN PRN Reason: Pain, severe (8-10) Last Admin: 11/03/16 11:26 Dose: 10 mg Propranolol HCl (Inderal) 10 mg PO BID [facility] Last Admin: 11/03/16 10:40 Dose: 10 mg Valsartan (Diovan) 160 mg PO DAILY [facility]
--- NOTE | 2016-11-03 15:59 | CARD ---
APPROVED REPORT EXAM: Two-dimensional and M-mode echocardiogram with Doppler and color Doppler. Other Information Quality : GoodRhythm : Atrial Fibrillation INDICATION Atrial Fibrillation 2D DIMENSIONS IVSd1.11 (0.7-1.1cm)LVDd4.20 (3.9-5.9cm) LVOT Diameter2.00 (1.8-2.4cm)PWd0.99 (0.7-1.1cm) IVSs1.32 (0.8-1.2cm)LVDs2.92 (2.5-4.0cm) FS (%) 30.5 %PWs1.40 (0.8-1.2cm) M-Mode DIMENSIONS Left Atrium (MM)3.88 (2.5-4.0cm)IVSd1.15 (0.7-1.1cm) Aortic Root2.85 (2.2-3.7cm)LVDd4.97 (4.0-5.6cm) Aortic Cusp Exc.1.74 (1.5-2.0cm)PWd0.91 (0.7-1.1cm) IVSs1.71 cmFS (%) 40 % LVDs2.97 (2.0-3.8cm)PWs1.50 cm Mitral Valve E/A ratio0.0 TDI E/Lateral E'0.0E/Medial E'0.0 Pulmonary Valve PV Peak Yuvsifvo49.3cm/s Tricuspid Valve TR Peak [id number]/sRAP [id number] Peak Gr.27mmHg [id number] LEFT VENTRICLE The left ventricle is normal size. There is normal left ventricular wall thickness. The left ventricular function is normal. The left ventricular ejection fraction is within the normal range. The Ejection Fraction is 60-65%. There is normal LV segmental wall motion. The left ventricular diastolic function is normal. No left ventricle thrombus noted on this study. There is no mass noted in the left ventricle. RIGHT VENTRICLE The right ventricle is normal size. There is normal right ventricular wall thickness. The right ventricular systolic function is normal. ATRIA The left atrium size is normal. The right atrium size is normal. The interatrial septum is intact with no evidence for an atrial septal defect. AORTIC VALVE The aortic valve is normal in structure and function. No aortic regurgitation is present. There is no aortic valvular stenosis. There is no aortic valvular vegetation. MITRAL VALVE The mitral valve is normal in structure and function. There is no evidence of mitral valve prolapse. There is no mitral valve stenosis. There is no mitral valve regurgitation noted. TRICUSPID VALVE The tricuspid valve is normal in structure and function. There is mild tricuspid regurgitation. There is no tricuspid valve prolapse or vegetation. There is no tricuspid valve stenosis. PULMONIC VALVE The pulmonary valve is normal in structure and function. There is no pulmonic valvular regurgitation. There is no pulmonic valvular stenosis. GREAT VESSELS The aortic root is normal in size. The IVC is normal in size and collapses >50% with inspiration. PERICARDIAL EFFUSION The pericardium appears normal. There is no pleural effusion. <Conclusion> The left ventricle is normal size. The left ventricular function is normal. The left ventricular ejection fraction is within the normal range. The Ejection Fraction is 60-65%. There is mild tricuspid regurgitation.
--- NOTE | 2016-11-03 17:53 | US ---
HISTORY: liver analysis for elevated LFTs COMPARISON: None. TECHNIQUE: Sonographic evaluation of the right upper quadrant of the abdomen. FINDINGS: LIVER: Liver measures approximately 13.6 cm. Liver demonstrates smooth contour and normal echogenicity. No mass. No intrahepatic bile duct dilatation. GALLBLADDER: Status post cholecystectomy COMMON BILE DUCT: Measures 4 mm. No stones. No dilatation. PANCREAS: There is a small 5.4 mm elliptical shaped hypoechoic focus in the region of the posterior aspect pancreatic tail of uncertain etiology. While this could represent adjacent abutting vessel, the possibility of a small cystic focus of of within the pancreas not excluded. Followup ultrasound including Doppler ultrasound of this area and to determine whether this represents vessel suggested. RIGHT KIDNEY: Measures approximately 10.8 x 4.6 x 6.0 cm in length. Normal echogenicity. No calculus, mass, or hydronephrosis. AORTA: No aneurysmal dilatation. IVC: Unremarkable. OTHER FINDINGS: None . IMPRESSION: Status post cholecystectomy. There is a small 5.4 mm elliptical shaped hypoechoic focus in the region of the posterior aspect pancreatic tail of uncertain etiology. While this could represent adjacent abutting vessel, the possibility of a small cystic focus of of within the pancreas not excluded. Followup ultrasound including Doppler ultrasound of this area and to determine whether this represents vessel suggested.
[2016-11-04] MEDS: oxyCODONE 5 mg Immediate Release Tab PO PRN ×3 (01:58→20:42)
[2016-11-04 07:40] LABS: ALB/GLOB RATIO 1.4 (1.0-2.1); ALBUMIN 4.1 g/dL (3.5-5.0); ALT/SGPT 322 U/L (9-52); AST/SGOT 337 U/L (14-36); BLOOD UREA NITROGEN 13 mg/dl (7-17); CALCIUM 9.1 mg/dL (8.4-10.2); GFR AFRICAN-AMERICAN > 60; GFR NON-AFRICAN AMERICAN > 60; HDL CHOLESTEROL 41 MG/DL (30-70)
[2016-11-04 07:44] LABS: PROTHROMBIN TIME 11.3 Seconds (9.8-13.1)
[2016-11-04 07:48] LABS: LIPASE 2423 U/L (23-300)
[2016-11-04 07:51] LABS: LDL CHOLESTEROL 116 mg/dL (0-129)
[2016-11-04 07:58] LABS: T4 8.46 ug/dl (5.5-11.0)
[2016-11-04] MEDS: Enoxaparin 100 mg Syringe SC SCH ×2 (09:45→21:30)
--- NOTE | 2016-11-04 10:23 | CP.PCM.PN ---
Subjective - Date & Time of Evaluation Date of Evaluation: 11/04/16 Time of Evaluation: 10:02 - Subjective Subjective: Patient seen and examined. Complaining of Palpitations, Neck pain and migraine sensitive to light and noise without aura. complaining of nausea which gets better with Zofran. Heart rate has remained well controlled. Patient tolerating diet. Denies chest pain, SOB, abdominal pain. Objective - Vital Signs/Intake and Output Vital Signs (last 24 hours): Temp Pulse Resp BP Pulse Ox 98.3 F 109 H 18 121/88 94 L 11/04/16 08:00 11/04/16 09:46 11/04/16 08:00 11/04/16 09:46 11/04/16 08:00 - Medications Medications: Current Medications Aspirin (Ecotrin) 81 mg PO DAILY [facility] Last Admin: 11/04/16 09:47 Dose: 81 mg Buspirone HCl (Buspar) 10 mg PO TID [facility] Last Admin: 11/04/16 09:47 Dose: 10 mg Enoxaparin Sodium (Lovenox) 90 mg SC Q12 [facility] PRN Reason: Protocol Last Admin: 11/04/16 09:45 Dose: 90 mg Famotidine (Pepcid) 20 mg PO BID [facility] Last Admin: 11/04/16 09:47 Dose: 20 mg Gabapentin (Neurontin) 600 mg PO QID [facility] Last Admin: 11/04/16 09:46 Dose: 600 mg Home Med (Desvenlafaxine Succinate [Pristiq]) 50 mg PO HS [facility] Last Admin: 11/03/16 21:36 Dose: 50 mg Hydrochlorothiazide (Microzide) 12.5 mg PO DAILY [facility] Last Admin: 11/04/16 09:47 Dose: 12.5 mg Methimazole (Tapazole) 10 mg PO ROSAURA [facility] Methimazole (Tapazole) 10 mg PO MON [facility] Ondansetron HCl (Zofran Inj) 4 mg IVP Q6 PRN PRN Reason: Nausea/Vomiting Last Admin: 11/04/16 01:53 Dose: 4 mg Oxycodone HCl (Oxycodone Immediate Release Tab) 5 mg PO Q6 PRN PRN Reason: Pain, moderate (4-7) Last Admin: 11/04/16 01:58 Dose: 5 mg Oxycodone HCl (Oxycodone Immediate Release Tab) 10 mg PO Q6 PRN PRN Reason: Pain, severe (8-10) Last Admin: 11/04/16 07:46 Dose: 10 mg Propranolol HCl (Inderal) 10 mg PO BID [facility] Last Admin: 11/04/16 09:46 Dose: 10 mg Valsartan (Diovan) 160 mg PO DAILY [facility] Last Admin: 11/04/16 09:47 Dose: 160 mg - Labs Labs: 11/02/16 05:00 11/04/16 06:30 PT 11.3 Seconds (9.8-13.1) 11/04/16 06:30 INR 1.0 (0.9-1.2) 11/04/16 06:30 APTT 35.3 Seconds (25.6-37.1) 11/01/16 20:41 - Constitutional Appears: Well, Non-toxic, No Acute Distress (but Anxious) - Head Exam Head Exam: ATRAUMATIC, NORMAL INSPECTION, NORMOCEPHALIC - Eye Exam Eye Exam: EOMI, Normal appearance - Neck Exam Neck Exam: Full ROM. absent: Lymphadenopathy, Tenderness, Thyromegaly - Respiratory Exam Respiratory Exam: Clear to Ausculation Bilateral, NORMAL BREATHING PATTERN. absent: Accessory Muscle Use, Chest Wall Tenderness, Decreased Breath Sounds - Cardiovascular Exam Cardiovascular Exam: Irregular Rhythm, +S1, +S2. absent: +S4, Murmur - GI/Abdominal Exam GI & Abdominal Exam: Soft, Normal Bowel Sounds - Extremities Exam Extremities Exam: Full ROM, Normal Capillary Refill. absent: Calf Tenderness - Back Exam Back Exam: absent: CVA tenderness (L), CVA tenderness (R) - Neurological Exam Neurological Exam: Alert, Awake, CN II-XII Intact, Normal Gait, Oriented x3 Neuro motor strength exam: Left Upper Extremity: 5, Right Upper Extremity: 5, Left Lower Extremity: 5, Right Lower Extremity: 5 - Psychiatric Exam Psychiatric exam: Anxious - Skin Skin Exam: Normal Color Assessment and Plan - Assessment and Plan (Free Text) Assessment: 51 yo female with PMH of Afib (s/p ablation in 2012), HTN, GERD, Hyperthyroidism , depression, anxiety and Cervical & lower back disk herniation presented to ED with nausea, dizziness, and intermittent left-sided chest pain for 4 hours. Patient was subsequently admitted with recurrent Afib. Plan: Recurrent Afib (S/P Ablation in 2012) -Previous history of short episode of A-fib 2 years ago after Ablation -Rate currently controlled on propanolol 10mg BID -CHADS-VASc Score is 2points: moderate-high risk and should otherwise be an anticoagulation candidate. -Therapeutic Lovenox 90 mg SC BID -Consult by Dr Younger appreciated. -Coumadin 5mg PO therapy for assisted anticoagulation, started yesterday -PT: 11.3, INR: 1.0 -Echo showed 60-65% ejection fraction, with mild TR -Acute ACS ruled out, Troponin Neg x 3 Elevated LFTs -Obesity VS Chronic Medication VS Tylenol Use (pt claims only beginning few days ago) -AST/ALT: 337/322, ALP: 217, Lipase: 2423 -Abd U/S: small 5.4mm focus at posterior aspect pancreatic tail of uncertain etiology, could be adjacent abutting vessel. possible small cystic focus within the pancreas. -f/u Doppler Ultrasound recommended -GI consult placed HTN, controlled -contine Valsartan 160mg PO Daily (Home Med) -contine Hydrochlorothiazide 12.5mg PO Daily (Home Med) Chronic Pain secondery to Cervical and Lumbar disk herniation -Oxycodone 5mg PO Q6H PRN moderate -Oxycodone 7.5mg PO Q6H PRN severe Hyperthyroidism -Endocrine, Dr. Lindo consulted -Methimazole 10mg PO Mon & Thurs -Thyroid Panel: Free T4: 0.84, Thyroxine (T4) 8.46, ans TSH: 1.57 Anxiety/Depression -Buspar 10mg PO TID -Desvenlafaxine 50mg PO HS [to be brought in by family] -Gabapentin 600mg PO QID [pt reiterates this is for Anxiety and not any form of Neuropathy or Pain management] DVT Prophylaxis -Lovenox 90 mg SC BID
--- NOTE | 2016-11-04 16:16 | CP.PCM.PN ---
Subjective - Date & Time of Evaluation Date of Evaluation: 11/04/16 Time of Evaluation: 16:12 - Subjective Subjective: c/o palpitation Objective - Vital Signs/Intake and Output Vital Signs (last 24 hours): Temp Pulse Resp BP Pulse Ox 98.8 F 102 H 18 103/75 92 L 11/04/16 16:00 11/04/16 16:00 11/04/16 16:00 11/04/16 16:00 11/04/16 16:00 - Medications Medications: Current Medications Aspirin (Ecotrin) 81 mg PO DAILY [facility] Last Admin: 11/04/16 09:47 Dose: 81 mg Buspirone HCl (Buspar) 10 mg PO TID [facility] Last Admin: 11/04/16 12:27 Dose: 10 mg Enoxaparin Sodium (Lovenox) 90 mg SC Q12 [facility] PRN Reason: Protocol Last Admin: 11/04/16 09:45 Dose: 90 mg Famotidine (Pepcid) 20 mg PO BID [facility] Last Admin: 11/04/16 09:47 Dose: 20 mg Gabapentin (Neurontin) 600 mg PO QID [facility] Last Admin: 11/04/16 12:27 Dose: 600 mg Home Med (Desvenlafaxine Succinate [Pristiq]) 50 mg PO HS [facility] Last Admin: 11/03/16 21:36 Dose: 50 mg Hydrochlorothiazide (Microzide) 12.5 mg PO DAILY [facility] Last Admin: 11/04/16 09:47 Dose: 12.5 mg Methimazole (Tapazole) 10 mg PO ROSAURA [facility] Methimazole (Tapazole) 10 mg PO MON [facility] Ondansetron HCl (Zofran Inj) 4 mg IVP Q6 PRN PRN Reason: Nausea/Vomiting Last Admin: 11/04/16 01:53 Dose: 4 mg Oxycodone HCl (Oxycodone Immediate Release Tab) 5 mg PO Q6 PRN PRN Reason: Pain, moderate (4-7) Last Admin: 11/04/16 01:58 Dose: 5 mg Oxycodone HCl (Oxycodone Immediate Release Tab) 10 mg PO Q6 PRN PRN Reason: Pain, severe (8-10) Propranolol HCl (Inderal) 10 mg PO BID [facility] Last Admin: 11/04/16 09:46 Dose: 10 mg Valsartan (Diovan) 160 mg PO DAILY [facility] Last Admin: 11/04/16 09:47 Dose: 160 mg Warfarin Sodium (Coumadin) 5 mg PO QD5 [facility] PRN Reason: Protocol Stop: 11/04/16 17:01 - Labs Labs: 11/02/16 05:00 11/04/16 06:30 PT 11.3 Seconds (9.8-13.1) 11/04/16 06:30 INR 1.0 (0.9-1.2) 11/04/16 06:30 APTT 35.3 Seconds (25.6-37.1) 11/01/16 20:41 - Constitutional Appears: Well - Head Exam Head Exam: NORMAL INSPECTION - Eye Exam Eye Exam: Normal appearance - Neck Exam Neck Exam: Normal Inspection - Respiratory Exam Respiratory Exam: NORMAL BREATHING PATTERN - Cardiovascular Exam Cardiovascular Exam: Irregular Rhythm - GI/Abdominal Exam GI & Abdominal Exam: Soft - Extremities Exam Extremities Exam: Normal Inspection Assessment and Plan - Assessment and Plan (Free Text) Assessment: A Fib Hyperthyroidism Goiter Plan: Plan: Discussed with Dr. Boogie and PGY1 cont coumadin therapy Cont. Aspirin (Ecotrin) 81 mg PO DAILY [facility] Enoxaparin Sodium (Lovenox) 90 mg SC Q12 [facility] Hydrochlorothiazide (Microzide) 12.5 mg PO DAILY [facility] Last Admin: 11/03/16 10:41 Dose: 12.5 mg Methimazole (Tapazole) 10 mg PO [place]A [facility] Methimazole (Tapazole) 10 mg PO MON [facility] Propranolol HCl (Inderal) 10 mg PO BID [facility] Valsartan (Diovan) 160 mg PO DAILY [facility] Refuses to f/u with Dr. Sifuentes EP consult with Dr. Moore was requested
[2016-11-04 21:32] LABS: GAMMA GLUTAMYL TRANSPEPTIDASE 520 U/L (8-78)
[2016-11-05] MEDS: oxyCODONE 5 mg Immediate Release Tab PO PRN ×3 (03:12→18:52)
[2016-11-05 07:04] LABS: INR 1.1 (0.9-1.2); PROTHROMBIN TIME 12.1 Seconds (9.8-13.1)
[2016-11-05] MEDS: Enoxaparin 100 mg Syringe SC SCH (08:57)
--- NOTE | 2016-11-05 10:02 | CP.PCM.PN ---
Subjective - Date & Time of Evaluation Date of Evaluation: 11/05/16 Time of Evaluation: 10:00 - Subjective Subjective: Patient seen and examined. complaining of Migraine since yesterday, Sumatriptan didn't help much. admits to occasional palpitations and nausea. denies SOB, chest pain or abdominal pain. Objective - Vital Signs/Intake and Output Vital Signs (last 24 hours): Temp Pulse Resp BP Pulse Ox 98.4 F 108 H 18 120/81 90 L 11/05/16 08:45 11/05/16 08:59 11/05/16 08:45 11/05/16 08:59 11/05/16 08:45 - Medications Medications: Current Medications Aspirin (Ecotrin) 81 mg PO DAILY [facility] Last Admin: 11/05/16 08:58 Dose: 81 mg Buspirone HCl (Buspar) 10 mg PO TID [facility] Last Admin: 11/05/16 08:58 Dose: 10 mg Enoxaparin Sodium (Lovenox) 90 mg SC Q12 [facility] PRN Reason: Protocol Last Admin: 11/05/16 08:57 Dose: 90 mg Famotidine (Pepcid) 20 mg PO BID [facility] Last Admin: 11/05/16 08:58 Dose: 20 mg Gabapentin (Neurontin) 600 mg PO QID [facility] Last Admin: 11/05/16 08:58 Dose: 600 mg Home Med (Desvenlafaxine Succinate [Pristiq]) 50 mg PO HS [facility] Last Admin: 11/04/16 21:18 Dose: 50 mg Hydrochlorothiazide (Microzide) 12.5 mg PO DAILY [facility] Last Admin: 11/05/16 08:59 Dose: 12.5 mg Methimazole (Tapazole) 10 mg PO ROSAURA [facility] Methimazole (Tapazole) 10 mg PO MON [facility] Last Admin: 11/05/16 08:59 Dose: 10 mg Ondansetron HCl (Zofran Inj) 4 mg IVP Q6 PRN PRN Reason: Nausea/Vomiting Last Admin: 11/04/16 22:37 Dose: 4 mg Oxycodone HCl (Oxycodone Immediate Release Tab) 5 mg PO Q6 PRN PRN Reason: Pain, moderate (4-7) Last Admin: 11/04/16 20:42 Dose: 5 mg Oxycodone HCl (Oxycodone Immediate Release Tab) 10 mg PO Q6 PRN PRN Reason: Pain, severe (8-10) Last Admin: 11/05/16 08:57 Dose: 10 mg Propranolol HCl (Inderal) 10 mg PO BID [facility] Last Admin: 11/05/16 08:59 Dose: 10 mg Valsartan (Diovan) 160 mg PO DAILY [facility] Last Admin: 11/05/16 08:58 Dose: 160 mg - Labs Labs: 11/02/16 05:00 11/04/16 06:30 PT 12.1 Seconds (9.8-13.1) 11/05/16 05:00 INR 1.1 (0.9-1.2) 11/05/16 05:00 APTT 35.3 Seconds (25.6-37.1) 11/01/16 20:41 - Constitutional Appears: Well (Anxious ), No Acute Distress - Head Exam Head Exam: ATRAUMATIC, NORMAL INSPECTION, NORMOCEPHALIC - Eye Exam Eye Exam: EOMI, Normal appearance - Neck Exam Neck Exam: Full ROM (pain due to cervical disk herniation). absent: Lymphadenopathy - Respiratory Exam Respiratory Exam: Clear to Ausculation Bilateral, NORMAL BREATHING PATTERN. absent: Accessory Muscle Use, Chest Wall Tenderness, Decreased Breath Sounds - Cardiovascular Exam Cardiovascular Exam: Irregular Rhythm, +S1, +S2. absent: Bradycardia, Tachycardia, +S4, Murmur - GI/Abdominal Exam GI & Abdominal Exam: Soft, Normal Bowel Sounds - Extremities Exam Extremities Exam: Full ROM. absent: Calf Tenderness - Back Exam Back Exam: absent: CVA tenderness (L), CVA tenderness (R) - Neurological Exam Neurological Exam: Alert, Awake, CN II-XII Intact, Oriented x3 Neuro motor strength exam: Left Upper Extremity: 5, Right Upper Extremity: 5, Left Lower Extremity: 5, Right Lower Extremity: 5 - Psychiatric Exam Psychiatric exam: Anxious Assessment and Plan - Assessment and Plan (Free Text) Assessment: 51 yo female with PMH of Afib (s/p ablation in 2012), HTN, GERD, Hyperthyroidism , depression, anxiety and Cervical & lower back disk herniation presented to ED with nausea, dizziness, and intermittent left-sided chest pain for 4 hours. Patient was subsequently admitted with recurrent Afib. Plan: Recurrent Afib (S/P Ablation in 2012) -Previous history of short episode of A-fib 2 years ago after Ablation -Rate currently controlled on propanolol 10mg PO BID -CHADS-VASc Score is 2points: moderate-high risk and should otherwise be an anticoagulation candidate. -Consult by Dr Carisa cordero. -As per cardio, hold Coumadin 5mg PO, Lovenox 90 mg SC BID and ASA -As per cardio, Obtain abdomen CT scan -EP consult with Dr. Moore was requested yesterday -PT: 12.1, INR: 1.1 -Echo showed 60-65% ejection fraction, with mild TR -Acute ACS ruled out, Troponin Neg x 3 Elevated LFTs -Obesity VS Chronic Medication VS Tylenol Use (pt claims only beginning few days ago) -AST/ALT: 337/322, ALP: 217, Lipase: 2423 -Abd U/S: small 5.4mm focus at posterior aspect pancreatic tail of uncertain etiology, could be adjacent abutting vessel. possible small cystic focus within the pancreas. -f/u Doppler Ultrasound recommended -GI consult placed HTN, controlled -contine Valsartan 160mg PO Daily (Home Med) -contine Hydrochlorothiazide 12.5mg PO Daily (Home Med) Chronic Pain secondery to Cervical and Lumbar disk herniation -Oxycodone 5mg PO Q6H PRN moderate -Oxycodone 7.5mg PO Q6H PRN severe Hyperthyroidism -Endocrine, Dr. Lindo consulted -Methimazole 10mg PO Mon & Th -Thyroid Panel: Free T4: 0.84, Thyroxine (T4) 8.46, ans TSH: 1.57 Anxiety/Depression -Buspar 10mg PO TID -Desvenlafaxine 50mg PO HS [to be brought in by family] -Gabapentin 600mg PO QID [pt reiterates this is for Anxiety and not any form of Neuropathy or Pain management] DVT Prophylaxis -Hold Lovenox 90 mg SC BID
--- NOTE | 2016-11-05 13:19 | CP.PCM.PN ---
Subjective - Date & Time of Evaluation Date of Evaluation: 11/05/16 Time of Evaluation: 13:17 - Subjective Subjective: occasional palpitation Nausea A Fib with controlled rate Objective - Vital Signs/Intake and Output Vital Signs (last 24 hours): Temp Pulse Resp BP Pulse Ox 98.3 F 102 H 18 118/83 98 11/05/16 12:04 11/05/16 12:04 11/05/16 12:04 11/05/16 12:04 11/05/16 12:04 - Medications Medications: Current Medications Aspirin (Ecotrin) 81 mg PO DAILY [facility] Last Admin: 11/05/16 08:58 Dose: 81 mg Buspirone HCl (Buspar) 10 mg PO TID [facility] Last Admin: 11/05/16 08:58 Dose: 10 mg Enoxaparin Sodium (Lovenox) 130 mg SC DAILY [facility] PRN Reason: Protocol Famotidine (Pepcid) 20 mg PO BID [facility] Last Admin: 11/05/16 08:58 Dose: 20 mg Gabapentin (Neurontin) 600 mg PO QID [facility] Last Admin: 11/05/16 08:58 Dose: 600 mg Home Med (Desvenlafaxine Succinate [Pristiq]) 50 mg PO HS [facility] Last Admin: 11/04/16 21:18 Dose: 50 mg Hydrochlorothiazide (Microzide) 12.5 mg PO DAILY [facility] Last Admin: 11/05/16 08:59 Dose: 12.5 mg Methimazole (Tapazole) 10 mg PO ROSAURA [facility] Methimazole (Tapazole) 10 mg PO MON [facility] Last Admin: 11/05/16 08:59 Dose: 10 mg Ondansetron HCl (Zofran Inj) 4 mg IVP Q6 PRN PRN Reason: Nausea/Vomiting Last Admin: 11/04/16 22:37 Dose: 4 mg Oxycodone HCl (Oxycodone Immediate Release Tab) 5 mg PO Q6 PRN PRN Reason: Pain, moderate (4-7) Last Admin: 11/04/16 20:42 Dose: 5 mg Oxycodone HCl (Oxycodone Immediate Release Tab) 10 mg PO Q6 PRN PRN Reason: Pain, severe (8-10) Last Admin: 11/05/16 08:57 Dose: 10 mg Propranolol HCl (Inderal) 10 mg PO BID [facility] Last Admin: 11/05/16 08:59 Dose: 10 mg Valsartan (Diovan) 160 mg PO DAILY [facility] Last Admin: 11/05/16 08:58 Dose: 160 mg Warfarin Sodium (Coumadin) 5 mg PO QD5 [facility] PRN Reason: Protocol Stop: 11/05/16 17:01 - Labs Labs: 11/02/16 05:00 11/04/16 06:30 PT 12.1 Seconds (9.8-13.1) 11/05/16 05:00 INR 1.1 (0.9-1.2) 11/05/16 05:00 APTT 35.3 Seconds (25.6-37.1) 11/01/16 20:41 - Constitutional Appears: No Acute Distress - Head Exam Head Exam: NORMAL INSPECTION - Eye Exam Eye Exam: Normal appearance - Neck Exam Neck Exam: Normal Inspection - Respiratory Exam Respiratory Exam: NORMAL BREATHING PATTERN - Cardiovascular Exam Cardiovascular Exam: Irregular Rhythm - GI/Abdominal Exam GI & Abdominal Exam: Normal Bowel Sounds - Extremities Exam Extremities Exam: Normal Inspection Assessment and Plan - Assessment and Plan (Free Text) Assessment: A Fib Hyperthyroidism Goiter Acute pancreatitis Plan: hold ASA, Coumadin, Lovenox Obtain abdomen CT scan Hydrochlorothiazide (Microzide) 12.5 mg PO DAILY [facility] Last Admin: 11/03/16 10:41 Dose: 12.5 mg Methimazole (Tapazole) 10 mg PO [facility]A[place]A [facility] Methimazole (Tapazole) 10 mg PO MON [facility] Propranolol HCl (Inderal) 10 mg PO BID [facility] Valsartan (Diovan) 160 mg PO DAILY [facility] EP consult with Dr. Moore was requested yesterday Amylase and lipase levels
[2016-11-05] MEDS ORDERED: Diatriz Meglumine/Diatriz Sod 30 ML BOTTLE PO ONE (13:22)
[2016-11-05] MEDS ORDERED: Lactated Ringer's 1,000 ML IV SCH ×2 (14:30→22:30)
--- NOTE | 2016-11-05 21:23 | CP.PCM.CON ---
History of Present Illness - History of Present Illness History of Present Illness: 51 yo female admitted with weakness and left sided chest pain due to afib. Has had ablation procedure in the past and this her first episode since. Found to have elevated LFTs and a possible less than 1 cm lesion in pancreas. Review of Systems - Constitutional Constitutional: absent: Chills - EENT Eyes: absent: Blurred Vision Ears: absent: Decreased Hearing Nose/Mouth/Throat: absent: Epistaxis - Cardiovascular Cardiovascular: absent: Chest Pain - Respiratory Respiratory: absent: Cough - Gastrointestinal Gastrointestinal: absent: Abdominal Pain Past Patient History - Past Medical History & Family History Past Medical History?: Yes - Past Social History Smoking Status: Never Smoked - CARDIAC Hx Atrial Fibrillation: Yes (s/p Heart Catheter Ablation in 2012) Hx Cardia Arrhythmia: Yes (A-FIB/HAD ABLATION) Hx Hypertension: Yes - PULMONARY Hx Pneumonia: Yes - NEUROLOGICAL Hx Migraine: Yes Hx Seizures: Yes (ALLERGIC REACTION TO IV IODINE) - HEENT Hx HEENT Problems: No - RENAL Hx Chronic Kidney Disease: No Hx Kidney Stones: Yes (STILL THERE "TINY") - ENDOCRINE/METABOLIC Hx Hyperthyroidism: Yes - HEMATOLOGICAL/ONCOLOGICAL Hx Anemia: Yes - INTEGUMENTARY Hx Dermatological Problems: No - MUSCULOSKELETAL/RHEUMATOLOGICAL Hx Arthritis: Yes Hx Fractures: Yes (R ankle) - GASTROINTESTINAL Hx Gastrointestinal Disorders: Yes Hx Gastroesophageal Reflux: Yes - GENITOURINARY/GYNECOLOGICAL Hx Genitourinary Disorders: No - PSYCHIATRIC Hx Anxiety: Yes Hx Depression: Yes - SURGICAL HISTORY Hx Cholecystectomy: Yes (1997) - ANESTHESIA Hx Anesthesia: Yes Meds Allergies/Adverse Reactions: Allergies Allergy/AdvReac Type Severity Reaction Status Date / Time cefazolin sodium [From Ancef] Allergy RASH Verified 07/13/15 07:37 iodine Allergy convulsions Verified 07/13/15 07:37 meperidine HCl [From Demerol] AdvReac anxiety Verified 07/13/15 07:37 prochlorperazine AdvReac anxiety Verified 07/13/15 07:37 [From Compazine] prochlorperazine edisylate AdvReac anxiety Verified 07/13/15 07:37 [From Compazine] prochlorperazine maleate AdvReac anxiety Verified 07/13/15 07:37 [From Compazine] - Medications Medications: Current Medications Buspirone HCl (Buspar) 10 mg PO TID [facility] Last Admin: 11/05/16 17:11 Dose: 10 mg Famotidine (Pepcid) 20 mg PO BID [facility] Last Admin: 11/05/16 17:11 Dose: 20 mg Gabapentin (Neurontin) 600 mg PO QID [facility] Last Admin: 11/05/16 17:11 Dose: 600 mg Home Med (Desvenlafaxine Succinate [Pristiq]) 50 mg PO HS [facility] Last Admin: 11/04/16 21:18 Dose: 50 mg Hydrochlorothiazide (Microzide) 12.5 mg PO DAILY [facility] Last Admin: 11/05/16 08:59 Dose: 12.5 mg Lactated Ringer's (Lactated Ringer's) 1,000 mls @ 440 mls/hr IV .Q2H17M [facility] Last Admin: 11/05/16 16:49 Dose: 440 mls/hr Methimazole (Tapazole) 10 mg PO ROSAURA [facility] Methimazole (Tapazole) 10 mg PO MON [facility] Last Admin: 11/05/16 08:59 Dose: 10 mg Ondansetron HCl (Zofran Inj) 4 mg IVP Q6 PRN PRN Reason: Nausea/Vomiting Last Admin: 11/04/16 22:37 Dose: 4 mg Oxycodone HCl (Oxycodone Immediate Release Tab) 5 mg PO Q6 PRN PRN Reason: Pain, moderate (4-7) Last Admin: 11/04/16 20:42 Dose: 5 mg Oxycodone HCl (Oxycodone Immediate Release Tab) 10 mg PO Q6 PRN PRN Reason: Pain, severe (8-10) Last Admin: 11/05/16 18:52 Dose: 10 mg Propranolol HCl (Inderal) 10 mg PO BID [facility] Last Admin: 11/05/16 17:11 Dose: 10 mg Valsartan (Diovan) 160 mg PO DAILY [facility] Last Admin: 11/05/16 08:58 Dose: 160 mg Physical Exam - Constitutional Appears: Well - Eye Exam Eye Exam: Normal appearance Pupil Exam: PERRL - ENT Exam ENT Exam: Normal Exam - Neck Exam Neck exam: Positive for: Normal Inspection - Respiratory Exam Respiratory Exam: NORMAL BREATHING PATTERN - Cardiovascular Exam Cardiovascular Exam: REGULAR RHYTHM, +S1, +S2 - GI/Abdominal Exam GI & Abdominal Exam: Normal Bowel Sounds, Soft. absent: Tenderness Results - Vital Signs Recent Vital Signs: Last Vital Signs Temp 99.0 F 11/05/16 18:51 Pulse 110 H 11/05/16 18:51 Resp 20 11/05/16 18:51 BP 106/64 11/05/16 18:51 Pulse Ox 97 11/05/16 18:51 - Labs Result Diagrams: 11/02/16 05:00 11/04/16 06:30 Labs: Laboratory Results - last 24 hr 11/04/16 11/05/16 06:30 05:00 PT 12.1 INR 1.1 GGT 520 H TSH 3rd Generation 1.57 Assessment & Plan (1) Elevated LFTs Assessment and Plan: LFTs not done today were about 8x normal. Hep ABC serology negative. Will repeat LFTs in AM and send additional labs for possible autoimmune and metabolic causes. Patient on multiple meds and it certainly could be medication induced. Pancreatic abnormality needs to be followed as recommended by radiology Status: Acute
[2016-11-06 07:20] LABS: ALB/GLOB RATIO 1.3 (1.0-2.1); ALBUMIN 3.9 g/dL (3.5-5.0); ALT/SGPT 174 U/L (9-52); AST/SGOT 49 U/L (14-36); BLOOD UREA NITROGEN 9 mg/dl (7-17); CALCIUM 9.1 mg/dL (8.4-10.2); GFR AFRICAN-AMERICAN > 60; GFR NON-AFRICAN AMERICAN > 60; IRON 57 ug/dL (37-170); LIPASE 72 U/L (23-300)
[2016-11-06 07:24] LABS: PROTHROMBIN TIME 10.9 Seconds (9.8-13.1)
[2016-11-06 07:30] LABS: % IRON SATURATION 20 % (20-55); TOTAL IRON BINDING CAPACITY 283 ug/dL (250-450)
[2016-11-06 07:35] LABS: T4 8.66 ug/dl (5.5-11.0)
[2016-11-06] MEDS ORDERED: Enoxaparin 150 mg Syringe SC SCH (09:00)
--- NOTE | 2016-11-06 09:29 | CP.PCM.PN ---
Subjective - Date & Time of Evaluation Date of Evaluation: 11/06/16 Time of Evaluation: 09:21 - Subjective Subjective: patient generally well. Feels stomach rumbling. Objective - Vital Signs/Intake and Output Vital Signs (last 24 hours): Temp Pulse Resp BP Pulse Ox 98.6 F 100 H 20 142/92 H 95 11/06/16 08:00 11/06/16 08:58 11/06/16 08:00 11/06/16 08:58 11/06/16 08:00 - Medications Medications: Current Medications Buspirone HCl (Buspar) 10 mg PO TID [facility] Last Admin: 11/06/16 08:57 Dose: 10 mg Famotidine (Pepcid) 20 mg PO BID [facility] Last Admin: 11/06/16 08:57 Dose: 20 mg Gabapentin (Neurontin) 600 mg PO QID [facility] Last Admin: 11/06/16 08:57 Dose: 600 mg Home Med (Desvenlafaxine Succinate [Pristiq]) 50 mg PO [facility] Last Admin: 11/05/16 21:21 Dose: 50 mg Hydrochlorothiazide (Microzide) 12.5 mg PO DAILY [facility] Last Admin: 11/05/16 08:59 Dose: 12.5 mg Lactated Ringer's (Lactated Ringer's) 1,000 mls @ 440 mls/hr IV .Q2H17M [facility] Last Admin: 11/05/16 16:49 Dose: 440 mls/hr Methimazole (Tapazole) 10 mg PO [place] [facility] Methimazole (Tapazole) 10 mg PO MON [facility] Last Admin: 11/05/16 08:59 Dose: 10 mg Ondansetron HCl (Zofran Inj) 4 mg IVP Q6 PRN PRN Reason: Nausea/Vomiting Last Admin: 11/04/16 22:37 Dose: 4 mg Oxycodone HCl (Oxycodone Immediate Release Tab) 5 mg PO Q6 PRN PRN Reason: Pain, moderate (4-7) Last Admin: 11/04/16 20:42 Dose: 5 mg Oxycodone HCl (Oxycodone Immediate Release Tab) 10 mg PO Q6 PRN PRN Reason: Pain, severe (8-10) Last Admin: 11/05/16 18:52 Dose: 10 mg Propranolol HCl (Inderal) 10 mg PO BID [facility] Last Admin: 11/06/16 08:58 Dose: 10 mg Valsartan (Diovan) 160 mg PO DAILY [facility] Last Admin: 11/06/16 08:58 Dose: 160 mg - Labs Labs: 11/02/16 05:00 11/06/16 05:00 PT 10.9 Seconds (9.8-13.1) 11/06/16 05:00 INR 1.0 (0.9-1.2) 11/06/16 05:00 APTT 35.3 Seconds (25.6-37.1) 11/01/16 20:41 - Head Exam Head Exam: ATRAUMATIC - Eye Exam Eye Exam: Normal appearance - ENT Exam ENT Exam: Mucous Membranes Moist - Respiratory Exam Respiratory Exam: Clear to Ausculation Bilateral - Cardiovascular Exam Cardiovascular Exam: REGULAR RHYTHM - GI/Abdominal Exam GI & Abdominal Exam: Soft. absent: Tenderness - Extremities Exam Extremities Exam: absent: Pedal Edema Assessment and Plan (1) Elevated LFTs Assessment & Plan: LFTs and lipase much better. Possibly initially raised by congestion due to initial A fib. Continue to monitor. Status: Acute
--- NOTE | 2016-11-06 11:12 | CT ---
PROCEDURE: CT Abdomen and Pelvis without intravenous contrast HISTORY: Rapid atrial fibrillation. Pancreatitis suspected. By history, negative test (concurrent with this examination). COMPARISON: 04/20/2016 CT abdomen and pelvis. 11/03/2016 abdominal ultrasound TECHNIQUE: Unenhanced study. Neither oral nor intravenous contrast administered. Radiation dose: Total exam DLP = 1017.68 mGy-cm. This CT exam was performed using one or more of the following dose reduction techniques: Automated exposure control, adjustment of the mA and/or kV according to patient size, and/or use of iterative reconstruction technique. FINDINGS: LOWER THORAX: Unremarkable. LIVER: Unremarkable. No gross lesion or ductal dilatation. GALLBLADDER AND BILE DUCTS: Status post cholecystectomy. No abnormality is seen in the gallbladder fossa. PANCREAS: Unremarkable. No gross lesion or ductal dilatation. Absence of intravenous contrast precludes optimal assessment of the pancreas for pancreatic masses, necrotizing pancreatitis. SPLEEN: Unremarkable. ADRENALS: Unremarkable. No mass. KIDNEYS AND URETERS: Stable bilateral nonobstructing renal calculi common non larger than 4 mm. Unremarkable ureters with respect to caliber and course. VASCULATURE: Unremarkable. No aortic aneurysm. BOWEL: Constipation without fecal impaction or obstruction. APPENDIX: Unremarkable. Normal appendix. PERITONEUM: Unremarkable. No free fluid. No free air. LYMPH NODES: Unremarkable. No enlarged lymph nodes. BLADDER: Unremarkable. REPRODUCTIVE: Unremarkable. BONES: No acute fracture. OTHER FINDINGS: Area and subcutaneous tuft tissues to the right of the midline at the level of the pelvic rim. Presumably iatrogenic. IMPRESSION: 1. No acute findings related to/accounting for the clinical presentation. No significant interval change compared to the prior examination(s). No gross abnormalities with respect to pancreas or peripancreatic tissues. Diagnostic assessment of the pancreas however is limited by the absence of intravenous contrast. 2. Incidental finding(s): Bilateral small nonobstructing renal calculi.
[2016-11-06 13:05] VITALS: BP 120/89; PULSE 104; RESP 18; TEMP 98.8
--- NOTE | 2016-11-06 15:26 | CP.PCM.DIS ---
Provider - Provider Date of Admission: 11/01/16 18:15 Attending physician: Mago Lawrence MD Consults: Cardiology, Dr. Younger Endocrine, Dr. Guicho CASTILLO, Dr. Lezama Time Spent in preparation of Discharge (in minutes): 30 Diagnosis - Discharge Diagnosis (1) Atrial fibrillation Status: Acute Comment: Acute on Chronic (s/p ablation in 2012) (2) Elevated LFTs Status: Acute (3) HTN (hypertension) Status: Chronic (4) Anxiety Status: Chronic (5) Depression Status: Chronic (6) GERD (gastroesophageal reflux disease) Status: Chronic (7) Hyperthyroidism Status: Chronic Hospital Course - Lab Results Lab Results: Most Recent Lab Values WBC 5.8 K/uL (4.8-10.8) 11/02/16 05:00 RBC 4.75 Mil/uL (3.80-5.20) 11/02/16 05:00 Hgb 13.4 g/dL (12.0-16.0) 11/02/16 05:00 Hct 40.7 % (34.0-47.0) 11/02/16 05:00 MCV 85.8 fl (81.0-99.0) 11/02/16 05:00 MCH 28.3 pg (27.0-31.0) 11/02/16 05:00 MCHC 33.0 g/dL (33.0-37.0) 11/02/16 05:00 RDW 14.2 % (11.5-14.5) 11/02/16 05:00 Plt Count 254 K/uL (130-400) 11/02/16 05:00 MPV 9.3 fl (7.2-11.7) 11/01/16 17:52 Neut % (Auto) 74.0 % (50.0-75.0) 11/01/16 17:52 Lymph % (Auto) 20.4 % (20.0-40.0) 11/01/16 17:52 [place] % (Auto) 4.8 % (0.0-10.0) 11/01/16 17:52 Eos % (Auto) 0.0 % (0.0-4.0) 11/01/16 17:52 Baso % (Auto) 0.8 % (0.0-2.0) 11/01/16 17:52 Neut # 4.8 K/uL (1.8-7.0) 11/01/16 17:52 Lymph # 1.3 K/uL (1.0-4.3) 11/01/16 17:52 [place] # 0.3 K/uL (0.0-0.8) 11/01/16 17:52 Eos # 0.0 K/uL (0.0-0.7) 11/01/16 17:52 Baso # 0.1 K/uL (0.0-0.2) 11/01/16 17:52 PT 10.9 Seconds (9.8-13.1) 11/06/16 05:00 INR 1.0 (0.9-1.2) 11/06/16 05:00 APTT 35.3 Seconds (25.6-37.1) 11/01/16 20:41 Sodium 142 mmol/l (132-148) 11/06/16 05:00 Potassium 3.9 MMOL/L (3.6-5.0) 11/06/16 05:00 Chloride 100 mmol/L (98-107) 11/06/16 05:00 Carbon Dioxide 33 mmol/L (22-30) H 11/06/16 05:00 Anion Gap 13 (10-20) 11/06/16 05:00 BUN 9 mg/dl (7-17) 11/06/16 05:00 Creatinine 0.7 mg/dL (0.7-1.2) 11/06/16 05:00 Est GFR ( Amer) > 60 11/06/16 05:00 Est GFR (Non-Af Amer) > 60 11/06/16 05:00 Random Glucose 105 mg/dL (65-105) 11/06/16 05:00 Hemoglobin A1c 6.3 % (4.2-6.5) 11/02/16 05:00 Calcium 9.1 mg/dL (8.4-10.2) 11/06/16 05:00 Iron 57 ug/dL (37-170) 11/06/16 05:00 TIBC 283 ug/dL (250-450) 11/06/16 05:00 % Saturation 20 % (20-55) 11/06/16 05:00 Total Bilirubin 0.3 mg/dl (0.2-1.3) 11/06/16 05:00 GGT 520 U/L (8-78) H 11/04/16 06:30 AST 49 U/L (14-36) H D 11/06/16 05:00 ALT 174 U/L (9-52) H D 11/06/16 05:00 Alkaline Phosphatase 159 U/L (38-126) H D 11/06/16 05:00 Troponin I < 0.0120 ng/mL (0.00-0.120) 11/02/16 08:30 Total Protein 6.7 G/DL (6.3-8.2) 11/06/16 05:00 Albumin 3.9 g/dL (3.5-5.0) 11/06/16 05:00 Globulin 2.9 gm/dL (2.2-3.9) 11/06/16 05:00 Albumin/Globulin Ratio 1.3 (1.0-2.1) 11/06/16 05:00 Triglycerides 132 mg/DL (0-149) 11/04/16 06:30 Cholesterol 193 mg/dL (0-199) 11/04/16 06:30 LDL Cholesterol Direct 116 mg/dL (0-129) 11/04/16 06:30 HDL Cholesterol 41 MG/DL (30-70) 11/04/16 06:30 Lipase 72 U/L (23-300) 11/06/16 05:00 Carcinoembryonic Ag 1.4 ng/mL (0-3.0) 11/02/16 05:00 CA 19-9 Antigen 5.9 U/mL (0-37) 11/02/16 05:00 Free T4 0.84 ng/dL (0.78-2.19) 11/04/16 06:30 Thyroxine (T4) 8.66 ug/dl (5.5-11.0) 11/06/16 05:00 TSH 3rd Generation 1.51 mIU/ML (0.46-4.68) 11/06/16 05:00 Urine Opiates Screen Positive (NEGATIVE) H 11/02/16 09:11 Urine Methadone Screen Negative (NEGATIVE) 11/02/16 09:11 Ur Barbiturates Screen Negative (NEGATIVE) 11/02/16 09:11 Ur Phencyclidine Scrn Negative (NEGATIVE) 11/02/16 09:11 Ur Amphetamines Screen Negative (NEGATIVE) 11/02/16 09:11 U Benzodiazepines Scrn Negative (NEGATIVE) 11/02/16 09:11 U Oth Cocaine Metabols Negative (NEGATIVE) 11/02/16 09:11 U Cannabinoids Screen Negative (NEGATIVE) 11/02/16 09:11 Hepatitis A IgM Ab Negative (NEGATIVE) 11/02/16 05:00 Hep Bs Antigen Negative (NEGATIVE) 11/02/16 05:00 Hep B Core IgM Ab Negative (NEGATIVE) 11/02/16 05:00 Hepatitis C Antibody Negative (NEGATIVE) 11/02/16 05:00 - Hospital Course Hospital Course: 51 yo female with PMH of Afib (s/p ablation in 2012), HTN, GERD, Hyperthyroidism , depression, anxiety and Cervical & lower back disk herniation presented to ED with nausea, dizziness, and intermittent left-sided chest pain for 4 hours. During hospital stay, patient was found to have A-fib and elevated LFTs. Paper Machine Back Tender, GI and Endocrine were consulted. As per Dr. Younger patient was started on Propanolol 10mg PO BID, rate was controlled. Due to elevated LFTs, abdo US was performed which showed unspecified lesion on pancreas, follow up CT without contrast showed no lesions. During her stay, lipase was 2423 which got resolved on fluids and after cession of Lovenox. Pt is not a good candidate for nursing home anticoagulation due to long history of allergic reactions to anticoagulations, however will explore further for her nursing home anticoag as outpt. patient was discharged home with instructions to follow bottom liquor attendant, GI and Dr. rubin for EP study. - Date & Time of H&P Date of H&P: 11/01/16 Time of H&P: 20:50 Discharge Exam - Head Exam Head Exam: ATRAUMATIC, NORMAL INSPECTION, NORMOCEPHALIC - Eye Exam Eye Exam: EOMI, Normal appearance - ENT Exam ENT Exam: Mucous Membranes Moist - Neck Exam Neck exam: Full Rom - Respiratory Exam Respiratory Exam: NORMAL BREATHING PATTERN. absent: Accessory Muscle Use, Chest Wall Tenderness, Decreased Breath Sounds, Rhonchi, Wheezes - Cardiovascular Exam Cardiovascular Exam: Irregular Rhythm. absent: Bradycardia, Tachycardia - GI/Abdominal Exam GI & Abdominal Exam: Normal Bowel Sounds, Soft. absent: Guarding, Tenderness - Extremities Exam Extremities exam: full ROM - Back Exam Back exam: absent: CVA tenderness (L), CVA tenderness (R) - Neurological Exam Neurological exam: Alert, CN II-XII Intact, Normal Gait, Oriented x3 - Psychiatric Exam Psychiatric exam: Anxious - Skin Skin Exam: Normal Color Discharge Plan - Discharge Medications Prescriptions: Propranolol [Inderal] 10 mg PO BID #60 tab - Follow Up Plan Condition: GOOD Disposition: HOME/ ROUTINE Instructions: Atrial Fibrillation (DC) Additional Instructions: Your Norvasc medication was discontinued by cardiology and twice daily Propranolol was started Follow up with Cardiology/EPS after discharge. Number for Dr Rubin given to patient Follow up with Endocrine, Dr Lindo Follow up with GI, Dr Lezama regarding transaminitis Follow up with your PMD. Phone number given to [facility] if patient wishes to re-establish care ED precautions given Referrals: [facility] [Outside] Sabi Lindo MD [Medical Doctor] - Galo Rubin MD [Staff Provider] - Wilmer Lezama MD [Staff Provider] -
[2016-11-06 16:40] LABS: GAMMA GLUTAMYL TRANSPEPTIDASE 311 U/L (8-78)
[2016-11-07 08:27] VITALS: O2SAT 98
[2016-11-07 19:24] LABS: TSI <89 % baseline (<140)
== END 2016-11-06 15:00 | disposition home or self-care (01) | DRG 308 ==
LOC: H.ER 16:34 → H.ERHOLD 18:15 → H.TEL 21:42
PROVIDERS: ADMIT Family Medicine Geriatric Medicine; ATTEND Family Medicine Geriatric Medicine
DX: I48.91 Unspecified atrial fibrillation (principal); K85.90 Acute pancreatitis without necrosis or infection, unspecified; I10 Essential (primary) hypertension; F32.9 Major depressive disorder, single episode, unspecified; E05.00 Thyrotoxicosis with diffuse goiter without thyrotoxic crisis or storm; F41.0 Panic disorder [episodic paroxysmal anxiety]; F41.1 Generalized anxiety disorder; G43.009 Migraine without aura, not intractable, without status migrainosus; M54.2 Cervicalgia; G89.29 Other chronic pain; K21.9 Gastro-esophageal reflux disease without esophagitis; N95.1 Menopausal and female climacteric states; Z79.82 Long term (current) use of aspirin; Z79.899 Other long term (current) drug therapy; Z87.01 Personal history of pneumonia (recurrent); Z87.442 Personal history of urinary calculi; Z90.49 Acquired absence of other specified parts of digestive tract; Z90.710 Acquired absence of both cervix and uterus; D64.9 Anemia, unspecified; M19.90 Unspecified osteoarthritis, unspecified site; M25.512 Pain in left shoulder; M25.511 Pain in right shoulder; G40.909 Epilepsy, unspecified, not intractable, without status epilepticus; R74.8 Abnormal levels of other serum enzymes; R79.89 Other specified abnormal findings of blood chemistry

== ENCOUNTER 2016-11-25 06:38 | Emergency (ER) | payer MEDICARE ==
[2016-11-25 06:38] VITALS: BMI 33.1
[2016-11-25 06:59] VITALS: TEMP 97.7
[2016-11-25] MEDS ORDERED: Sodium Chloride 0.9% 1,000 ML IV STA (07:15)
--- NOTE | 2016-11-25 07:18 | ED PDOC ---
Syncope/Near Syncope/Dizziness Time Seen by Provider: 11/25/16 07:03 Chief Complaint (Nursing): Dizziness/Lightheaded History Per: Patient Onset/Duration Of Symptoms: Hrs (1) Current Symptoms Are (Timing): Still Present Associated Symptoms Preceding Syncopal Episode: Vertigo Seizure Or Post-ictal Symptoms: None Possible Causative Factor(s): Vertigo Fall Associated With With Symptoms: No Severity: Moderate Pain Scale Rating Of: 0 Additional Complaint(s): Dizziness, feels like room is spinning around her assoc with nausea x 1 hr [employer] INTER[employer] ED. Denies headache, chest pain or palpitations. No LOC. Sx worse when moving head, improves when lying still. Past Medical History Vital Signs: Last Vital Signs Temp 97.7 F 11/25/16 06:52 Pulse 88 11/25/16 06:52 Resp 20 11/25/16 06:52 BP 119/80 11/25/16 06:52 Pulse Ox 98 11/25/16 06:52 - Medical History PMH: Anemia, Anxiety, Arthritis, Atrial Fibrillation (s/p Heart Catheter Ablation in 2012), Cardia Arrhythmia (A-FIB/HAD ABLATION), Depression, Fractures (R ankle), HTN, Hyperthyroidism, Kidney Stones (STILL THERE "TINY"), Migraine, Pneumonia, Seizures (ALLERGIC REACTION TO IV IODINE) Denies: Chronic Kidney Disease - Surgical History Surgical History: Cholecystectomy (1997) - Family History Family History: States: Hypertension - Home Medications Home Medications: Ambulatory Orders Medication Instructions Recorded Desvenlafaxine Succinate [Pristiq] 50 mg PO HS 11/01/16 Ergocalciferol (Vitamin D2) 50,000 units PO QWK 11/01/16 [Vitamin D] Gabapentin [Neurontin] 600 mg PO QID 11/01/16 Omeprazole 20 mg PO DAILY 11/01/16 Oxycodone HCl/Acetaminophen 1 tab PO Q6 PRN 11/01/16 [Percocet 7.5-325 mg Tablet] Valsartan/Hydrochlorothiazide 1 tab PO DAILY 11/01/16 [Diovan Hct 160-12.5 mg Tab] busPIRone [Buspar] 10 mg PO TID 11/01/16 methIMAzole [Tapazole] 10 mg PO MWF 11/01/16 Propranolol [Inderal] 10 mg PO BID #60 tab 11/06/16 Meclizine [Meclizine*] 25 mg PO Q8 #15 tab 11/25/16 Ondansetron [Zofran] 4 mg PO Q8H #10 tab 11/25/16 - Allergies Allergies/Adverse Reactions: Allergies Allergy/AdvReac Type Severity Reaction Status Date / Time cefazolin sodium [From Ancef] Allergy RASH Verified 11/25/16 06:59 iodine Allergy convulsions Verified 11/25/16 06:59 meperidine HCl [From Demerol] AdvReac anxiety Verified 11/25/16 06:59 prochlorperazine AdvReac anxiety Verified 11/25/16 06:59 [From Compazine] prochlorperazine edisylate AdvReac anxiety Verified 11/25/16 06:59 [From Compazine] prochlorperazine maleate AdvReac anxiety Verified 11/25/16 06:59 [From Compazine] Review of Systems ROS Statement: Except As Marked, All Systems Reviewed And Found Negative Cardiovascular: Negative for: Chest Pain, Palpitations Gastrointestinal: Positive for: Nausea. Negative for: Vomiting, Abdominal Pain , Diarrhea Neurological: Positive for: Dizziness Physical Exam - Reviewed Nursing Documentation Reviewed: Yes Vital Signs Reviewed: Yes - Physical Exam Appears: Positive for: Non-toxic, No Acute Distress Head Exam: Positive for: ATRAUMATIC, NORMAL INSPECTION, NORMOCEPHALIC Skin: Positive for: Normal Color, Warm, DRY Eye Exam: Positive for: EOMI, Normal appearance, PERRL ENT: Positive for: Normal ENT Inspection Neck: Positive for: Normal, Painless ROM Cardiovascular/Chest: Positive for: Irregularly Irregular Respiratory: Positive for: CNT, Normal Breath Sounds Gastrointestinal/Abdominal: Positive for: Normal Exam, Bowel Sounds, Soft Back: Positive for: Normal Inspection Extremity: Positive for: Normal ROM Neurologic/Psych: Positive for: Alert, Oriented. Negative for: Motor/Sensory Deficits - Laboratory Results Result Diagrams: 11/25/16 07:30 11/25/16 07:30 - ECG O2 Sat by Pulse Oximetry: 98 - Progress Re-evaluation Time: 10:28 Condition: Improved Disposition - Clinical Impression Clinical Impression: Vertigo - Patient ED Disposition Is Patient to be Admitted: No Counseled Patient/Family Regarding: Studies Performed, Diagnosis, Need For Followup, Rx Given - Disposition Referrals: [facility] [Outside] Disposition: Routine/Home Disposition Time: 10:29 Condition: FAIR Prescriptions: Meclizine [Meclizine*] 25 mg PO Q8 #15 tab Ondansetron [Zofran] 4 mg PO Q8H #10 tab Instructions: Vertigo (ED) Forms: [employer] [facility] ([place])
[2016-11-25 07:39] LABS: BASO % 0.6 % (0.0-2.0); EOS % 0.2 % (0.0-4.0); HEMATOCRIT 42.4 % (34.0-47.0); LYMPH # 1.8 K/uL (1.0-4.3); LYMPH % 30.5 % (20.0-40.0); MEAN CELL VOLUME 85.3 fl (81.0-99.0); MEAN CORPUSCULAR HEMOGLOBIN 29.2 pg (27.0-31.0); MEAN CORPUSCULAR HGB CONC 34.3 g/dL (33.0-37.0); MEAN PLATELET VOLUME 9.7 fl (7.2-11.7); MONO # 0.3 K/uL (0.0-0.8); MONO % 4.4 % (0.0-10.0); NEUT # 3.9 K/uL (1.8-7.0); NEUT % 64.3 % (50.0-75.0); NRBC % 0.4 % (0.0-0.0); RED CELL DISTRIBUTION WIDTH 14.2 % (11.5-14.5); WHITE BLOOD COUNT 6.1 K/uL (4.8-10.8)
[2016-11-25 07:53] LABS: ALB/GLOB RATIO 1.4 (1.0-2.1); ALKALINE PHOSPHATASE 178 U/L (38-126); ALT/SGPT 230 U/L (9-52); AST/SGOT 283 U/L (14-36); BILIRUBIN,TOTAL 1.5 mg/dl (0.2-1.3); BLOOD UREA NITROGEN 13 mg/dl (7-17); CALCIUM 9.5 mg/dL (8.4-10.2); CARBON DIOXIDE 28 mmol/L (22-30); CHLORIDE 102 mmol/L (98-107); GFR AFRICAN-AMERICAN > 60; GLUCOSE,RANDOM 139 mg/dL (65-105); POTASSIUM 4.9 MMOL/L (3.6-5.0); SODIUM 139 mmol/l (132-148); TOTAL PROTEIN 7.8 G/DL (6.3-8.2)
[2016-11-25] MEDS ORDERED: MethylPREDNISolone 40 mg Vial ONE (09:09)
[2016-11-25 10:27] VITALS: BP 140/86; PULSE 90; RESP 16
[2016-11-25 10:30] VITALS: O2SAT 98
--- NOTE | 2016-11-26 15:08 | CARD ---
APPROVED REPORT EKG Measurement Heart [id number] <Conclusion> Atrial fibrillation Nonspecific T wave abnormality Abnormal ECG
== END 2016-11-25 10:45 | disposition home or self-care (01) ==
LOC: H.ER 06:38
DX: R42 Dizziness and giddiness (principal); E05.90 Thyrotoxicosis, unspecified without thyrotoxic crisis or storm; F32.9 Major depressive disorder, single episode, unspecified; I10 Essential (primary) hypertension; I48.91 Unspecified atrial fibrillation; F41.9 Anxiety disorder, unspecified
CPT/HCPCS: 80053; 85025; 93005; 96374; 96375; 99284; J2405; J2930; J7040

== ENCOUNTER 2016-12-07 14:11 | Inpatient (IN) | payer MEDICARE ==
[2016-12-07 14:11] VITALS: BMI 33.1
[2016-12-07] MEDS ORDERED: Sodium Chloride 0.9% 1,000 ML IV SCH (15:00)
--- NOTE | 2016-12-07 15:04 | ED PDOC ---
HPI: Abdomen Time Seen by Provider: 12/07/16 14:46 Chief Complaint (Nursing): Abdominal Pain Chief Complaint (Provider): Abdominal pain History Per: Patient History/Exam Limitations: no limitations Onset/Duration Of Symptoms: Days Outside of [place] travel?: No Current Symptoms Are (Timing): Still Present Severity: Severe Location Of Pain/Discomfort: Diffuse, RUQ, RLQ, Epigastric, Suprapubic Quality Of Discomfort: "Pain" Associated Symptoms: Nausea, Other (lightheadedness) Exacerbating Factors: Movement Alleviating Factors: None Last Bowel Movement: Today Additional Complaint(s): 51 y/o F with PMhx of A.fib, hyperthyroid, depression, chronic pain, transaminitis presents to ED c/o abd pain, nausea, vomiting and lightheadedness. Patient c/o diffuse abd pain for the past 4 days. This morning pain became worse and she had two episodes of NBNB vomiting, persistent nausea and lightheadedness when she was at her doctor's office. She was then brought to ED by ambulance. Now patient c/o epigastric, suprapubic, RLQ diffuse abd pain , associated with nausea and lightheadedness. As per patient she had temp of 100.2 last night. Denies CP, palpitations, diarrhea, constipation, GI bleeding, dysuria, vaginal bleeding, SOB or headaches. Patient is taking percocet for chronic cervical pain. She takes it q6h, last percocet around 11 am this morning. Denies ETOH or other drugs. Abnormal Vaginal Bleeding: No Past Medical History Vital Signs: Last Vital Signs Temp 98.0 F 12/07/16 15:39 Pulse 126 H 12/07/16 15:39 Resp 24 12/07/16 15:39 BP 118/82 12/07/16 15:39 Pulse Ox 96 12/07/16 17:19 - Medical History PMH: Anemia, Anxiety, Arthritis, Atrial Fibrillation (s/p Heart Catheter Ablation in 2012), Depression, Fractures (R ankle), HTN, Hyperthyroidism, Kidney Stones (STILL THERE "TINY"), Migraine, Pneumonia, Seizures (ALLERGIC REACTION TO IV IODINE) Denies: Chronic Kidney Disease - Surgical History Surgical History: Cholecystectomy (1997) - Family History Family History: States: Hypertension - Home Medications Home Medications: Ambulatory Orders Medication Instructions Recorded Desvenlafaxine Succinate [Pristiq] 50 mg PO HS 11/01/16 Ergocalciferol (Vitamin D2) 50,000 units PO QWK 11/01/16 [Vitamin D] Gabapentin [Neurontin] 600 mg PO QID 11/01/16 Omeprazole 20 mg PO DAILY 11/01/16 Oxycodone HCl/Acetaminophen 1 tab PO Q6 PRN 11/01/16 [Percocet 7.5-325 mg Tablet] Valsartan/Hydrochlorothiazide 1 tab PO DAILY 11/01/16 [Diovan Hct 160-12.5 mg Tab] busPIRone [Buspar] 10 mg PO TID 11/01/16 methIMAzole [Tapazole] 10 mg PO MWF 11/01/16 Propranolol [Inderal] 10 mg PO BID #60 tab 11/06/16 Meclizine [Meclizine*] 25 mg PO Q8 #15 tab 11/25/16 Ondansetron [Zofran] 4 mg PO Q8H #10 tab 11/25/16 - Allergies Allergies/Adverse Reactions: Allergies Allergy/AdvReac Type Severity Reaction Status Date / Time cefazolin sodium [From Anc] Allergy RASH Verified 11/25/16 06:59 iodine Allergy convulsions Verified 11/25/16 06:59 meperidine HCl [From Demerol] AdvReac anxiety Verified 11/25/16 06:59 prochlorperazine AdvReac anxiety Verified 11/25/16 06:59 [From Compazine] prochlorperazine edisylate AdvReac anxiety Verified 11/25/16 06:59 [From Compazine] prochlorperazine maleate AdvReac anxiety Verified 11/25/16 06:59 [From Compazine] Review of Systems ROS Statement: Except As Marked, All Systems Reviewed And Found Negative Gastrointestinal: Positive for: Nausea, Vomiting, Abdominal Pain Musculoskeletal: Positive for: Neck Pain Physical Exam - Reviewed Nursing Documentation Reviewed: Yes Vital Signs Reviewed: Yes - Physical Exam Appears: Positive for: Uncomfortable Skin: Positive for: Normal Color, Warm Eye Exam: Positive for: EOMI, PERRL Cardiovascular/Chest: Positive for: Irregularly Irregular. Negative for: Murmur Respiratory: Positive for: Normal Breath Sounds. Negative for: Crackles, Wheezing Gastrointestinal/Abdominal: Positive for: Soft, Tenderness (Diffuse tenderness epigastric, suprapubic, RLQ and periumbilical.). Negative for: Distended, Rebound Extremity: Negative for: Tenderness, Pedal Edema, Calf Tenderness Neurologic/Psych: Positive for: Alert, Oriented. Negative for: Motor/Sensory Deficits - Laboratory Results Result Diagrams: 12/07/16 15:15 12/07/16 15:15 - ECG O2 Sat by Pulse Oximetry: 96 - Progress ED Course And Treament: CT shows sigmoid diverticulitis with small microperforations and free fluid. No abscess Patient to be admitted to the hosp Gi consult Sx consult IV flagyl and Cipro started Medical Decision Making Medical Decision Makin51 y/o F with multiple comorbidities presents c/o abd pain, vomiting and nausea Abd pain, vomiting, nausea CMP, CBC, lipase, UA CT abd pelvis w/o contrast Bentyl IM, Zofran IV, Pepcid IV IV fluids Chronic A.fib with RVR(hr 116) EKG shows A.fib with RVR IV fluids pain control Will revaluate after symptomatic treatment Disposition - Clinical Impression Clinical Impression: Diverticulitis large intestine - Patient ED Disposition Is Patient to be Admitted: Yes - Disposition Disposition Time: 17:20 Condition: STABLE
[2016-12-07 15:39] LABS: BASO % 0.5 % (0.0-2.0); EOS % 0.1 % (0.0-4.0); HEMOGLOBIN 15.2 g/dL (12.0-16.0); LYMPH # 1.8 K/uL (1.0-4.3); LYMPH % 24.9 % (20.0-40.0); MEAN CELL VOLUME 85.3 fl (81.0-99.0); MEAN CORPUSCULAR HEMOGLOBIN 28.2 pg (27.0-31.0); MEAN CORPUSCULAR HGB CONC 33.1 g/dL (33.0-37.0); MEAN PLATELET VOLUME 10.1 fl (7.2-11.7); MONO # 0.1 K/uL (0.0-0.8); MONO % 0.8 % (0.0-10.0); NEUT # 5.2 K/uL (1.8-7.0); NEUT % 73.7 % (50.0-75.0); NRBC % 0.1 % (0.0-0.0); RBC 5.4 Mil/uL (3.80-5.20); RED CELL DISTRIBUTION WIDTH 14.5 % (11.5-14.5); WHITE BLOOD COUNT 7.1 K/uL (4.8-10.8)
[2016-12-07 16:02] LABS: ALB/GLOB RATIO 1.3 (1.0-2.1); ALBUMIN 4.7 g/dL (3.5-5.0); ALT/SGPT 224 U/L (9-52); AST/SGOT 122 U/L (14-36); BLOOD UREA NITROGEN 11 mg/dl (7-17); CALCIUM 9.9 mg/dL (8.4-10.2); GFR AFRICAN-AMERICAN > 60; GFR NON-AFRICAN AMERICAN > 60; LIPASE 37 U/L (23-300)
--- NOTE | 2016-12-07 16:45 | CT ---
PROCEDURE: CT Abdomen and Pelvis without intravenous contrast HISTORY: abd pain. Vomiting COMPARISON: 11/06/2016 CT abdomen and pelvis. 11/03/2016 abdominal ultrasound TECHNIQUE: Unenhanced study. Neither oral nor intravenous contrast administered. Radiation dose: Total exam DLP = 987.29 mGy-cm. This CT exam was performed using one or more of the following dose reduction techniques: Automated exposure control, adjustment of the mA and/or kV according to patient size, and/or use of iterative reconstruction technique. FINDINGS: LOWER THORAX: Unremarkable. LIVER: Hepatic steatosis. No focal masses. No intrahepatic bile duct dilatation or perihepatic ascites. GALLBLADDER AND BILE DUCTS: Status post cholecystectomy. No abnormality is seen in the gallbladder fossa. PANCREAS: Unremarkable. No gross lesion or ductal dilatation. SPLEEN: Unremarkable. ADRENALS: Unremarkable. No mass. KIDNEYS AND URETERS: Bilateral nonobstructing renal calculi none larger than 3 mm. VASCULATURE: Unremarkable. No aortic aneurysm. BOWEL: Acute sigmoid diverticulitis. Free and partially loculated fluid identified in the area of interest extending into the cul-de-sac. Small micro perforations identified. No well formed, drainable collection identified. APPENDIX: Unremarkable. Normal appendix. PERITONEUM: No free air. LYMPH NODES: Unremarkable. No enlarged lymph nodes. BLADDER: Unremarkable. REPRODUCTIVE: Prior hysterectomy BONES: No acute fracture. OTHER FINDINGS: None. IMPRESSION: Acute sigmoid diverticulitis. Inflammatory changes in the affected segment extends to adjacent fat and there is free fluid identified. Small micro perforations. No drainable or well-formed collection. .
[2016-12-07] MEDS ORDERED: metroNIDAZOLE 500mg/100ml NS 100 ML IVPB ONE (17:16)
[2016-12-07] MEDS: metroNIDAZOLE 500mg/100ml NS 100 ML IVPB SCH (17:37)
[2016-12-07] MEDS: Lactated Ringer's 1,000 ML IV SCH (18:00)
[2016-12-07 18:34] LABS: SQUAMOUS EPITHIAL 6 /hpf (0-5); URINE BILIRUBIN NEGATIVE (NEGATIVE); URINE BLOOD NEGATIVE (NEGATIVE); URINE CLARITY CLOUDY (Clear); URINE COLOR YELLOW (YELLOW); URINE GLUCOSE (UA) NEG (Normal); URINE LEUKOCYTE ESTERASE LARGE Leu/uL (Negative); URINE NITRATE NEGATIVE (NEGATIVE); URINE PROTEIN NEGATIVE (NEGATIVE); URINE UROBILINOGEN 0.2-1.0 mg/dL (0.2-1.0)
[2016-12-07 18:45] LABS: BARBITURATES, UR NEGATIVE (NEGATIVE); BENZODIAZEPINES, UR NEGATIVE (NEGATIVE); OPIATES, UR POSITIVE (NEGATIVE); PHENCYCLIDINE, UR NEGATIVE (NEGATIVE)
--- NOTE | 2016-12-07 19:09 | CP.PCM.CON ---
History of Present Illness - History of Present Illness History of Present Illness: 51 Y F with PMH of A fib on Digoxin, hyperthyroidism, depression, GERD, HTN and PSH of cholecystectomy came with low abd pain and vomiting. Pain started 3 days ago in suprapubic and LLQ. Pain started with bloating. Pain doesn't radiate. Pain is constant and has gradually gotten worse. Reports vomiting today. Non bloody non bilious. Last time she ate was this AM. She also reports fever of 101.2 at home. 100.4 fever recorded in ED. Reports dark urine and has regular BM. Denies D/CP/SOB/hematemesis/hematochezia/constipation/ recent travel. This is the first episode of having these symptoms. Pt never had colonoscopy in the past. Last CT in 10/2016 shows no acute finding. CT today shows acute sigmoid diverticulitis. Surgery is consulted to evaluate for diverticulitis. PSH: cholecystectomy, myomectomy, Ankle surgery , ablation for Afib PMH: Afib, GERD ALL: Iodine Review of Systems - Review of Systems Review of Systems: See HPI Past Patient History - Past Medical History & Family History Past Medical History?: Yes - Past Social History Smoking Status: Never Smoked - CARDIAC Hx Atrial Fibrillation: Yes (s/p Heart Catheter Ablation in 2012) Hx Hypertension: Yes - PULMONARY Hx Pneumonia: Yes - NEUROLOGICAL Hx Migraine: Yes Hx Seizures: Yes (ALLERGIC REACTION TO IV IODINE) - HEENT Hx HEENT Problems: No - RENAL Hx Chronic Kidney Disease: No Hx Kidney Stones: Yes (STILL THERE "TINY") - ENDOCRINE/METABOLIC Hx Hyperthyroidism: Yes - HEMATOLOGICAL/ONCOLOGICAL Hx Anemia: Yes - INTEGUMENTARY Hx Dermatological Problems: No - MUSCULOSKELETAL/RHEUMATOLOGICAL Hx Arthritis: Yes Hx Fractures: Yes (R ankle) - GASTROINTESTINAL Hx Gastrointestinal Disorders: Yes Hx Gastroesophageal Reflux: Yes - GENITOURINARY/GYNECOLOGICAL Hx Genitourinary Disorders: No - PSYCHIATRIC Hx Anxiety: Yes Hx Depression: Yes Hx Substance Use: No - SURGICAL HISTORY Hx Cholecystectomy: Yes (1997) - ANESTHESIA Hx Anesthesia: Yes Meds Allergies/Adverse Reactions: Allergies Allergy/AdvReac Type Severity Reaction Status Date / Time cefazolin sodium [From Ancef] Allergy RASH Verified 11/25/16 06:59 iodine Allergy convulsions Verified 11/25/16 06:59 meperidine HCl [From Demerol] AdvReac anxiety Verified 11/25/16 06:59 prochlorperazine AdvReac anxiety Verified 11/25/16 06:59 [From Compazine] prochlorperazine edisylate AdvReac anxiety Verified 11/25/16 06:59 [From Compazine] prochlorperazine maleate AdvReac anxiety Verified 11/25/16 06:59 [From Compazine] - Medications Medications: Current Medications Sodium Chloride (Sodium Chloride 0.9%) 1,000 mls @ 500 mls/hr IV .Q2H [facility] Stop: 12/08/16 14:53 Last Admin: 12/07/16 15:09 Dose: 500 mls/hr Ciprofloxacin (Cipro 400mg/200ml Dsw) 400 mg in 200 mls @ 200 mls/hr IVPB Q12 [facility] Metronidazole (Flagyl 500mg/100ml Ns) 100 mls @ 100 mls/hr IVPB Q8 [facility] Last Admin: 12/07/16 17:37 Dose: 100 mls/hr Lactated Ringer's (Lactated Ringer's) 1,000 mls @ 125 mls/hr IV .Q8H [facility] Last Admin: 12/07/16 18:00 Dose: 125 mls/hr Physical Exam - Constitutional Appears: Non-toxic - Head Exam Head Exam: ATRAUMATIC, NORMAL INSPECTION, NORMOCEPHALIC - Eye Exam Eye Exam: EOMI, Normal appearance, PERRL Pupil Exam: NORMAL ACCOMODATION, PERRL - ENT Exam ENT Exam: Mucous Membranes Moist, Normal Exam - Neck Exam Neck exam: Positive for: Normal Inspection - Respiratory Exam Respiratory Exam: Clear to Auscultation Bilateral, NORMAL BREATHING PATTERN - Cardiovascular Exam Cardiovascular Exam: Tachycardia, Irregular Rhythm - GI/Abdominal Exam GI & Abdominal Exam: Normal Bowel Sounds, Soft, Tenderness. absent: Distended, Firm, Guarding, Hernia, Mass, Organomegaly, Pulsatile Mass, Rebound, Rigid Additional comments: Suprapubic, LLQ TTP - Extremities Exam Extremities exam: Positive for: full ROM, normal inspection - Back Exam Back exam: NORMAL INSPECTION - Neurological Exam Neurological exam: Alert, CN II-XII Intact, Normal Gait, Oriented x3, Reflexes Normal - Psychiatric Exam Psychiatric exam: Normal Affect, Normal Mood - Skin Skin Exam: Dry, Intact, Normal Color, Warm Results - Vital Signs Recent Vital Signs: Last Vital Signs Temp 100.4 F H 12/07/16 17:46 Pulse 129 H 12/07/16 17:46 Resp 24 12/07/16 17:46 BP 116/82 12/07/16 17:46 Pulse Ox 100 12/07/16 17:46 - Labs Result Diagrams: 12/07/16 15:15 12/07/16 15:15 Labs: Laboratory Results - last 24 hr 12/07/16 12/07/16 18:11 18:11 Urine Color Yellow Urine Clarity Cloudy Urine pH 6.0 Ur Specific [place] 1.013 Urine Protein Negative Urine Glucose (UA) Neg Urine Ketones 20 Urine Blood Negative Urine Nitrate Negative Urine Bilirubin Negative Urine Urobilinogen 0.2-1.0 Ur Leukocyte Esterase Large Urine Microscopic WBC 59 H Ur Squamous Epith Cells 6 H Hyaline Casts 6-10 H Urine Opiates Screen Positive H Urine Methadone Screen Negative Ur Barbiturates Screen Negative Ur Phencyclidine Scrn Negative Ur Amphetamines Screen Negative U Benzodiazepines Scrn Negative U Oth Cocaine Metabols Negative U Cannabinoids Screen Negative Assessment & Plan - Assessment and Plan (Free Text) Assessment: Acute sigmoid diverticulitis Febrile No leukocytosis NPO IVF ABX Pain control Nausea control f/U GI Monitor labs DW attending
[2016-12-07] MEDS ORDERED: HYDROmorphone 0.5 mg/0.5 ml ISec ONE (20:03)
[2016-12-07] MEDS ORDERED: Ciprofloxacin 400mg/200ml D5W 400 MG/200 ML BAG IVPB ONE (21:05)
[2016-12-07] MEDS: Ciprofloxacin 400mg/200ml D5W 400 MG/200 ML BAG IVPB SCH (21:09)
[2016-12-07] MEDS: DESVENLAFAXINE SUCCINATE PO SCH (22:45)
[2016-12-08] MEDS: metroNIDAZOLE 500mg/100ml NS 100 ML IVPB SCH ×3 (01:36→16:53)
[2016-12-08] MEDS: Lactated Ringer's 1,000 ML IV SCH ×3 (01:39→18:34)
[2016-12-08 07:40] LABS: BASO % 0.2 % (0.0-2.0); EOS % 0.3 % (0.0-4.0); LYMPH # 1.8 K/uL (1.0-4.3); LYMPH % 16.1 % (20.0-40.0); MEAN CELL VOLUME 85.9 fl (81.0-99.0); MEAN CORPUSCULAR HEMOGLOBIN 27.8 pg (27.0-31.0); MEAN CORPUSCULAR HGB CONC 32.4 g/dL (33.0-37.0); MEAN PLATELET VOLUME 9.6 fl (7.2-11.7); MONO # 0.5 K/uL (0.0-0.8); MONO % 4.3 % (0.0-10.0); NEUT # 8.9 K/uL (1.8-7.0); NEUT % 79.1 % (50.0-75.0); NRBC % 0.1 % (0.0-0.0); RBC 4.28 Mil/uL (3.80-5.20); RED CELL DISTRIBUTION WIDTH 14.2 % (11.5-14.5)
[2016-12-08 07:41] LABS: ALB/GLOB RATIO 1.2 (1.0-2.1); ALBUMIN 3.5 g/dL (3.5-5.0); ALT/SGPT 139 U/L (9-52); AST/SGOT 53 U/L (14-36); BLOOD UREA NITROGEN 8 mg/dl (7-17); GFR AFRICAN-AMERICAN > 60; GFR NON-AFRICAN AMERICAN > 60
[2016-12-08 08:03] LABS: HEMOGLOBIN 11.9 g/dL (12.0-16.0)
[2016-12-08 08:04] LABS: WHITE BLOOD COUNT 11.3 K/uL (4.8-10.8)
--- NOTE | 2016-12-08 09:31 | CP.PCM.HP ---
History of Present Illness - History of Present Illness History of Present Illness: pt admitted for diverticulitis w/ microperforations. was febrile and in rapid afib on admision but is in sinus at present. afebrile. bw noted w/ changes form admission in wbc and hgb. no f/c at present. no n/v/d. pain x 3 [employer]. no h/ o coon dz has h/o afib w/ ablasion Present on Admission - Present on Admission Any Indicators Present on Admission: No Review of Systems - Cardiovascular Cardiovascular: As Per HPI, Irregular Heart Rhythm, Rapid Heart Rate - Gastrointestinal Gastrointestinal: As Per HPI, Abdominal Pain Past Patient History - Past Medical History & Family History Past Medical History?: Yes - Past Social History Smoking Status: Former Smoker - CARDIAC Hx Cardiac Disorders: Yes Hx Atrial Fibrillation: Yes (s/p Heart Catheter Ablation in 2012) Hx Hypertension: Yes - PULMONARY Hx Respiratory Disorders: Yes Hx Pneumonia: Yes - NEUROLOGICAL Hx Neurological Disorder: Yes Hx Migraine: Yes Hx Seizures: Yes (ALLERGIC REACTION TO IV IODINE) - HEENT Hx HEENT Problems: No - RENAL Hx Chronic Kidney Disease: Yes Hx Kidney Stones: Yes (STILL THERE "TINY") - ENDOCRINE/METABOLIC Hx Endocrine Disorders: Yes Hx Hyperthyroidism: Yes - HEMATOLOGICAL/ONCOLOGICAL Hx Blood Disorders: Yes Hx AIDS: No Hx Anemia: Yes Hx Human Immunodeficiency Virus (HIV): No - INTEGUMENTARY Hx Dermatological Problems: No - MUSCULOSKELETAL/RHEUMATOLOGICAL Hx Musculoskeletal Disorders: Yes Hx Arthritis: Yes Hx Falls: No Hx Fractures: Yes (R ankle) - GASTROINTESTINAL Hx Gastrointestinal Disorders: Yes Hx Gastroesophageal Reflux: Yes - GENITOURINARY/GYNECOLOGICAL Hx Genitourinary Disorders: No - PSYCHIATRIC Hx Psychophysiologic Disorder: Yes Hx Anxiety: Yes Hx Depression: Yes Hx Substance Use: No - SURGICAL HISTORY Hx Surgeries: Yes Hx Cholecystectomy: Yes (1997) - ANESTHESIA Hx Anesthesia: Yes Hx Anesthesia Reactions: No Meds Allergies/Adverse Reactions: Allergies Allergy/AdvReac Type Severity Reaction Status Date / Time cefazolin sodium [From Ancef] Allergy RASH Verified 11/25/16 06:59 iodine Allergy convulsions Verified 11/25/16 06:59 meperidine HCl [From Demerol] AdvReac anxiety Verified 11/25/16 06:59 prochlorperazine AdvReac anxiety Verified 11/25/16 06:59 [From Compazine] prochlorperazine edisylate AdvReac anxiety Verified 11/25/16 06:59 [From Compazine] prochlorperazine maleate AdvReac anxiety Verified 11/25/16 06:59 [From Compazine] Physical Exam - Constitutional Appears: Well, Non-toxic, No Acute Distress - Head Exam Head Exam: ATRAUMATIC, NORMAL INSPECTION, NORMOCEPHALIC - Eye Exam Eye Exam: EOMI, Normal appearance, PERRL Pupil Exam: NORMAL ACCOMODATION, PERRL - ENT Exam ENT Exam: Mucous Membranes Moist, Normal Exam - Neck Exam Neck exam: Positive for: Normal Inspection - Respiratory Exam Respiratory Exam: Clear to Auscultation Bilateral, NORMAL BREATHING PATTERN - Cardiovascular Exam Cardiovascular Exam: REGULAR RHYTHM, RRR, +S1, +S2 - GI/Abdominal Exam GI & Abdominal Exam: Normal Bowel Sounds, Soft, Tenderness - Extremities Exam Extremities exam: Positive for: full ROM, normal capillary refill, normal inspection, pedal pulses present - Back Exam Back exam: FULL ROM, NORMAL INSPECTION - Neurological Exam Neurological exam: Alert, CN II-XII Intact, Normal Gait, Oriented x3, Reflexes Normal - Psychiatric Exam Psychiatric exam: Normal Affect, Normal Mood - Skin Skin Exam: Dry, Intact, Normal Color, Warm Results - Vital Signs Recent Vital Signs: Last Vital Signs Temp 97.5 F L 12/08/16 08:00 Pulse 90 12/08/16 08:00 Resp 18 12/08/16 08:00 BP 107/72 12/08/16 08:00 Pulse Ox 98 12/08/16 08:00 - Labs Result Diagrams: 12/08/16 06:00 12/08/16 06:00 Labs: Laboratory Results - last 24 hr 12/07/16 12/07/16 12/08/16 18:11 18:11 06:00 WBC 11.3 H D RBC 4.28 Hgb 11.9 L D Hct 36.7 MCV 85.9 MCH 27.8 MCHC 32.4 L RDW 14.2 Plt Count 215 MPV 9.6 Neut % (Auto) 79.1 H Lymph % (Auto) 16.1 L Becker % (Auto) 4.3 Eos % (Auto) 0.3 Baso % (Auto) 0.2 Neut # 8.9 H Lymph # 1.8 Becker # 0.5 Eos # 0.0 Baso # 0.0 Sodium Potassium Chloride Carbon Dioxide Anion Gap BUN Creatinine Est GFR ( Amer) Est GFR (Non-Af Amer) Random Glucose Calcium Total Bilirubin AST ALT Alkaline Phosphatase Total Protein Albumin Globulin Albumin/Globulin Ratio TSH 3rd Generation Urine Color Yellow Urine Clarity Cloudy Urine pH 6.0 Ur Specific [place] 1.013 Urine Protein Negative Urine Glucose (UA) Neg Urine Ketones 20 Urine Blood Negative Urine Nitrate Negative Urine Bilirubin Negative Urine Urobilinogen 0.2-1.0 Ur Leukocyte Esterase Large Urine Microscopic WBC 59 H Ur Squamous Epith Cells 6 H Hyaline Casts 6-10 H Urine Opiates Screen Positive H Urine Methadone Screen Negative Ur Barbiturates Screen Negative Ur Phencyclidine Scrn Negative Ur Amphetamines Screen Negative U Benzodiazepines Scrn Negative U Oth Cocaine Metabols Negative U Cannabinoids Screen Negative 12/08/16 06:00 WBC RBC Hgb Hct MCV MCH MCHC RDW Plt Count MPV Neut % (Auto) Lymph % (Auto) Becker % (Auto) Eos % (Auto) Baso % (Auto) Neut # Lymph # Becker # Eos # Baso # Sodium 143 Potassium 4.0 Chloride 105 Carbon Dioxide 30 Anion Gap 12 BUN 8 Creatinine 0.6 L Est GFR ( Amer) > 60 Est GFR (Non-Af Amer) > 60 Random Glucose 104 Calcium 9.0 Total Bilirubin 0.6 AST 53 H D ALT 139 H D Alkaline Phosphatase 137 H D Total Protein 6.3 Albumin 3.5 D Globulin 2.9 Albumin/Globulin Ratio 1.2 TSH 3rd Generation 0.58 Urine Color Urine Clarity Urine pH Ur Specific [place] Urine Protein Urine Glucose (UA) Urine Ketones Urine Blood Urine Nitrate Urine Bilirubin Urine Urobilinogen Ur Leukocyte Esterase Urine Microscopic WBC Ur Squamous Epith Cells Hyaline Casts Urine Opiates Screen Urine Methadone Screen Ur Barbiturates Screen Ur Phencyclidine Scrn Ur Amphetamines Screen U Benzodiazepines Scrn U Oth Cocaine Metabols U Cannabinoids Screen Assessment & Plan (1) DVT prophylaxis Assessment and Plan: scd dylan ehose hold anticoag for now Status: Acute (2) Diverticulitis large intestine Assessment and Plan: cipro/falgyl surgery/gi npo except meds pain and nausea control Status: Acute (3) Atrial fibrillation Assessment and Plan: ?? r/t fever cardio cont home meds Status: Acute (4) Elevated LFTs Assessment and Plan: ?? r/t tylenol for pain, will moniotr, gi trending down Status: Acute Decision To Admit - Pt Status Changed To: Hospital Disposition Of: Inpatient - Admit Certification Admit to Inpatient:: After my assessment, the patient will require hospitalization for at least two midnights. This is because of the severity of symptoms shown, intensity of services needed, and/or the medical risk in this patient being treated as an outpatient. - . Bed Request Type: Telemetry Admitting Physician: Jen Elliott
[2016-12-08] MEDS: Ciprofloxacin 400mg/200ml D5W 400 MG/200 ML BAG IVPB SCH ×2 (10:55→20:18)
--- NOTE | 2016-12-08 11:24 | CP.PCM.PN ---
<Phan Powers - Last Filed: 12/08/16 11:22> Subjective - Date & Time of Evaluation Date of Evaluation: 12/08/16 Time of Evaluation: 11:22 - Subjective Subjective: Surgery Pt s&e. Pt had Tmax of 103 yesterday. Pain improved. nausea improved. + amb. + void Objective - Vital Signs/Intake and Output Vital Signs (last 24 hours): Temp Pulse Resp BP Pulse Ox 97.3 F L 90 18 107/72 98 12/08/16 09:00 12/08/16 09:00 12/08/16 09:00 12/08/16 09:00 12/08/16 09:00 Intake and Output: 12/08/16 12/08/16 06:59 18:59 Intake Total 1350 Balance 1350 - Medications Medications: Current Medications Acetaminophen (Tylenol 325mg Tab) 650 mg PO Q4 PRN PRN Reason: Fever >100.4 F Amlodipine Besylate (Norvasc) 10 mg PO DAILY [facility] Aspirin (Aspirin Chewable) 81 mg PO DAILY [facility] Last Admin: 12/08/16 10:15 Dose: 81 mg Buspirone HCl (Buspar) 10 mg PO TID [facility] Last Admin: 12/08/16 10:09 Dose: 10 mg Digoxin (Lanoxin) 0.125 mg PO DAILY [facility] Famotidine (Pepcid) 20 mg IVP Q12 [facility] Gabapentin (Neurontin) 600 mg PO QID [facility] Last Admin: 12/08/16 10:09 Dose: 600 mg Home Med (Desvenlafaxine Succinate [Pristiq]) 1 tab PO HS [facility] Last Admin: 12/07/16 22:45 Dose: 1 tab Hydromorphone HCl (Dilaudid) 0.5 mg IVP Q4 PRN PRN Reason: Pain, severe (8-10) Last Admin: 12/07/16 20:04 Dose: 0.5 mg Sodium Chloride (Sodium Chloride 0.9%) 1,000 mls @ 500 mls/hr IV .Q2H [facility] Stop: 12/08/16 14:53 Last Admin: 12/07/16 15:09 Dose: 500 mls/hr Ciprofloxacin (Cipro 400mg/200ml Dsw) 400 mg in 200 mls @ 200 mls/hr IVPB Q12 [facility] Last Admin: 12/08/16 10:55 Dose: 200 mls/hr Metronidazole (Flagyl 500mg/100ml Ns) 100 mls @ 100 mls/hr IVPB Q8 [facility] Last Admin: 12/08/16 10:54 Dose: 100 mls/hr Lactated Ringer's (Lactated Ringer's) 1,000 mls @ 125 mls/hr IV .Q8H [facility] Last Admin: 12/08/16 10:21 Dose: 125 mls/hr Methimazole (Tapazole) 10 mg PO MOTH [facility] Ondansetron HCl (Zofran Inj) 4 mg IVP Q4 PRN PRN Reason: Nausea/Vomiting Last Admin: 12/08/16 10:50 Dose: 4 mg - Labs Labs: 12/08/16 06:00 12/08/16 06:00 - Constitutional Appears: Non-toxic - Head Exam Head Exam: ATRAUMATIC, NORMAL INSPECTION, NORMOCEPHALIC - Eye Exam Eye Exam: EOMI, Normal appearance, PERRL Pupil Exam: NORMAL ACCOMODATION, PERRL - ENT Exam ENT Exam: Mucous Membranes Moist, Normal Exam - Neck Exam Neck Exam: Full ROM, Normal Inspection. absent: Lymphadenopathy - Respiratory Exam Respiratory Exam: Clear to Ausculation Bilateral, NORMAL BREATHING PATTERN - Cardiovascular Exam Cardiovascular Exam: REGULAR RHYTHM, +S1, +S2. absent: Murmur - GI/Abdominal Exam GI & Abdominal Exam: Soft, Tenderness, Normal Bowel Sounds. absent: Distended, Firm, Guarding, Rigid Additional comments: LLQ TTP - Exam Exam: NORMAL INSPECTION - Extremities Exam Extremities Exam: Full ROM, Normal Capillary Refill, Normal Inspection. absent : Joint Swelling, Pedal Edema - Back Exam Back Exam: NORMAL INSPECTION - Neurological Exam Neurological Exam: Alert, Awake, CN II-XII Intact, Normal Gait, Oriented x3 - Psychiatric Exam Psychiatric exam: Normal Affect, Normal Mood - Skin Skin Exam: Dry, Intact, Normal Color, Warm. absent: Erythema Assessment and Plan - Assessment and Plan (Free Text) Assessment: Acute sigmoid diverticulitis : Improving Febrile WBC 11 today NPO except meds IVF ABX Pain control Nausea control f/U GI Monitor labs DW attending <Lio Malagon - Last Filed: 12/08/16 16:38> Subjective - Date & Time of Evaluation Time of Evaluation: 16:15 - Subjective Subjective: Patient was seen and examined at the bedside. Agree with resident's note above Objective - Vital Signs/Intake and Output Vital Signs (last 24 hours): Temp Pulse Resp BP Pulse Ox 98.6 F 98 H 20 122/67 95 12/08/16 16:19 12/08/16 16:19 12/08/16 16:19 12/08/16 16:19 12/08/16 16:19 Intake and Output: 12/08/16 12/08/16 06:59 18:59 Intake Total 1350 Balance 1350 - Medications Medications: Current Medications Acetaminophen (Tylenol 325mg Tab) 650 mg PO Q4 PRN PRN Reason: Fever >100.4 F Amlodipine Besylate (Norvasc) 10 mg PO DAILY [facility] Last Admin: 12/08/16 12:14 Dose: 10 mg Aspirin (Aspirin Chewable) 81 mg PO DAILY [facility] Last Admin: 12/08/16 10:15 Dose: 81 mg Buspirone HCl (Buspar) 10 mg PO TID [facility] Digoxin (Lanoxin) 0.125 mg PO DAILY [facility] Last Admin: 12/08/16 11:50 Dose: 0.125 mg Famotidine (Pepcid) 20 mg IVP Q12 [facility] Last Admin: 12/08/16 11:50 Dose: 20 mg Gabapentin (Neurontin) 600 mg PO QID [facility] Last Admin: 12/08/16 12:14 Dose: 600 mg Home Med (Desvenlafaxine Succinate [Pristiq]) 1 tab PO HS [facility] Last Admin: 12/07/16 22:45 Dose: 1 tab Hydromorphone HCl (Dilaudid) 0.5 mg IVP Q4 PRN PRN Reason: Pain, severe (8-10) Ciprofloxacin (Cipro 400mg/200ml Dsw) 400 mg in 200 mls @ 200 mls/hr IVPB Q12 [facility] Last Admin: 12/08/16 10:55 Dose: 200 mls/hr Metronidazole (Flagyl 500mg/100ml Ns) 100 mls @ 100 mls/hr IVPB Q8 [facility] Last Admin: 12/08/16 10:54 Dose: 100 mls/hr Lactated Ringer's (Lactated Ringer's) 1,000 mls @ 125 mls/hr IV .Q8H [facility] Last Admin: 12/08/16 10:21 Dose: 125 mls/hr Ketorolac Tromethamine (Toradol) 30 mg IVP Q6 PRN PRN Reason: migraine Methimazole (Tapazole) 10 mg PO MOTH [facility] Ondansetron HCl (Zofran Inj) 4 mg IVP Q4 PRN PRN Reason: Nausea/Vomiting Last Admin: 12/08/16 10:50 Dose: 4 mg - Labs Labs: 12/08/16 06:00 12/08/16 06:00
[2016-12-08] MEDS: Digoxin 125 mcg (0.125 mg) Tab PO SCH (11:50)
--- NOTE | 2016-12-08 16:07 | CP.PCM.CON ---
History of Present Illness - History of Present Illness History of Present Illness: 51 Y/O WITH CHRONIC PAF, PRESENTS WITH DIVERTICULAR DISEASE, N/V AND ABD PAIN. UPON PRESENTATION SHE WAS IN RAPID AFIB. DIG WAS RESTARTED AND HER HR IS NOW CONTROLLED. SINCE IVF AND ABX PT IS MORE COMFORTABLE AND LESS TACHY. SHE HAS UNDERGONE ABLATION IN 2010 FOR HER AFIB AT [facility]. SHE DENIES PALP, SOB, DIZZINESS, CP. PT IS CURRENTLY NPO. Review of Systems - Constitutional Constitutional: As Per HPI. absent: Anorexia, Chills, Daytime Sleepiness, Excessive Sweating, Fatigue, Fever, Frequent Falls, Headache, Increased Appetite , Lethargy, Malaise, Night Sweats, Snoring, Sleep Apnea, Weight Gain, Weight Loss, Weakness, Other - EENT Eyes: absent: As Per HPI, Blind Spots, Blurred Vision, Change in Vision, Decreased Night Vision, Diplopia, Discharge, Dry Eye, Exophthalmos, Floaters, Irritation, Itchy Eyes, Loss of Peripheral Vision, Pain, Photophobia, Requires Corrective Lenses, Sees Flashes, Spots in Vision, Tunnel Vision, Other Visual Disturbances, Loss of Vision, Other Ears: absent: As Per HPI, Decreased Hearing, Ear Discharge, Ear Pain, Tinnitus, Abnormal Hearing, Disequilibrium, Dizziness, Other Nose/Mouth/Throat: absent: As Per HPI, Epistaxis, Nasal Congestion, Nasal Discharge, Nasal Obstruction, Nasal Trauma, Nose Pain, Post Nasal Drip, Sinus Pain, Sinus Pressure, Bleeding Gums, Change in Voice, Dental Pain, Dry Mouth, Dysphagia, Halitosis, Hoarsness, Lip Swelling, Mouth Lesions, Mouth Pain, Odynophagia, Sore Throat, Throat Swelling, Tongue Swelling, Facial Pain, Neck Pain, Neck Mass, Other - Breasts Breasts: absent: As Per HPI, Change in Shape, Mass, Pain, Nipple Discharge, Nipple Inversion, Skin Changes, Swelling, Other - Cardiovascular Cardiovascular: absent: As Per HPI, Acrocyanosis, Chest Pain, Chest Pain at Rest , Chest Pain with Activity, Claudication, Diaphoresis, Dyspnea, Dyspnea on Exertion, Edema, Irregular Heart Rhythm, Pain Radiating to Arm/Neck/Jaw, Leg Edema, Leg Ulcers, Lightheadedness, Orthopnea, Palpitations, Paroxysmal Nocturnal Dyspnea, Pedal Edema, Radiating Pain, Rapid Heart Rate, Slow Heart Rate, Syncope, Other - Respiratory Respiratory: absent: As Per HPI, Cough, Dyspnea, Hemoptysis, Dyspnea on Exertion , Wheezing, Snoring, Stridor, Pain on Inspiration, Chest Congestion, Excessive Mucous Production, Change in Mucous Color, Pain with Coughing, Other - Gastrointestinal Gastrointestinal: Abdominal Pain, Cramping, Nausea, Vomiting. absent: As Per HPI, Belching, Bloating, Change in Bowel Habits, Change in Stool Character, Coffee Ground Emesis, Constipation, Diarrhea, Dyspepsia, Dysphagia, Early Satiety, Excessive Flatus, Fecal Incontinence, Heartburn, Hematemesis, Hematochezia, Loose Stools, Melena, Odynophagia, Temesmus, Other - Genitourinary Genitourinary: absent: As Per HPI, Change in Urinary Stream, Difficulty Urinating, Dysuria, Flank Pain, Hematuria, Pyuria, Nocturia, Urinary Incontinence, Urinary Frequency, Urinary Hesitance, Urinary Urgency, Voiding Freq/Small Amts, Freq UTI, Hx Renal/Bladder Calculi, Hx /Renal Surgery, Bladder Distension, Other - Reproductive: Female Reproductive:Female: absent: As Per HPI, Amenorrhea, Amenorrhea/ Control, Currently Menstual, Cycle <21 Days, Cycle >35 Days, Cycle Variable, Menses 1-7 Days, Menses >/= 8 Days, Menses Variable, Cycle > 4 Weeks Between, No Menses for 6 Months, Heavy Menses, Light Menses, Normal Menses, Spotting Between Cycles , S/P Hysterectomy, Menopausal, Post Menopausal, Premenarche, Abnormal Vaginal Bleeding, Dysmenorrhea, Dyspareunia, Genital Lesions, Genital Pruritis, Pelvic Pain, Prolapse Symptoms, Sexual Dysfunction, Vaginal Discharge, Vaginal Dryness , Vaginal Odor, Vaginal Pruritis, Other - Menstruation Menstruation: absent: As Per HPI, Amenorrhea, Amenorrhea/ Control, Currently Menstual, Cycle <21 Days, Cycle >35 Days, Cycle Variable, Menses 1-7 Days, Menses >/= 8 Days, Menses Variable, Cycle > 4 Weeks Between, No Menses for 6 Months, Heavy Menses, Light Menses, Normal Menses, Spotting Between Cycles , S/P Hysterectomy, Menopausal, Post Menopausal, Premenarche, Abnormal Vaginal Bleeding, Dysmenorrhea, Other - Musculoskeletal Musculoskeletal: absent: As Per HPI, Abnormal Gait, Arthralgias, Atrophy, Back Pain, Deformity, Joint Swelling, Limited Range of Motion, Loss of Height, Muscle Cramps, Muscle Weakness, Myalgias, Neck Pain, Numbness, Radiating Pain into Limb, Stiffness, Tingling, Other - Integumentary Integumentary: absent: As Per HPI, Acne, Alopecia, Bleeding Lesions, Change in Hair, Change in Nails, Change in Pigmentation, Changing Lesions, Dry Skin, Erythema, Furuncle, Hirsutism, Lesions, New Lesions, Non-Healing Lesions, Photosensitivity, Pruritus, Rash, Skin Pain, Skin Ulcer, Sores, Striae, Swelling , Unusual Bruising, Wounds, Jaundice, Other - Neurological Neurological: absent: As Per HPI, Abnormal Gait, Abnormal Hearing, Abnormal Movements, Abnormal Speech, Behavioral Changes, Burning Sensations, Confusion, Convulsions, Disequilibrium, Dizziness, Numbness, Focal Weakness, Frequent Falls , Headaches, Lack of Coordination, Loss of Vision, Memory Loss, Paresthesias, Radicular Pain, Restless Legs, Sensory Deficit, Syncope, Tingling, Tremor, Vertigo, Weakness, Other Visual Disturbances, Other - Psychiatric Psychiatric: absent: As Per HPI, Abnormal Sleep Pattern, Anhedonia, Anxiety, Auditory Hallucinations, Behavioral Changes, Change in Appetite, Change in Libido, Confusion, Depression, Difficulty Concentrating, Hallucinations, Homicidal Ideation, Hopelessness, Irritability, Memory Loss, Mood Swings, Panic Attacks, Paranoia, Suicidal Ideation, Visual Hallucinations, Tactile Hallucinations, Other - Endocrine Endocrine: absent: As Per HPI, Change in Body Appearance, Change in Libido, Cold Intolorance, Deepening of Voice, Excessive Sweating, Fatigue, Flushing, Heat Intolorance, Increase in Ring/Shoe/Hat Size, Palpitations, Polydipsia, Polyphagia, Polyuria, Other - Hematologic/Lymphatic Hematologic: absent: As Per HPI, Easy Bleeding, Easy Bruising, Lymphadenopathy, Other Past Patient History - Tetanus Immunizations Tetanus Immunization: Unknown - Past Medical History & Family History Past Medical History?: Yes - Past Social History Smoking Status: Former Smoker Chewing Tobacco Use: No Cigar Use: No Alcohol: None Drugs: Denies - CARDIAC Hx Cardiac Disorders: Yes Hx Atrial Fibrillation: Yes (s/p Heart Catheter Ablation in 2012) Hx Hypertension: Yes - PULMONARY Hx Respiratory Disorders: Yes Hx Pneumonia: Yes - NEUROLOGICAL Hx Neurological Disorder: Yes Hx Migraine: Yes Hx Seizures: Yes (ALLERGIC REACTION TO IV IODINE) - HEENT Hx HEENT Problems: No - RENAL Hx Chronic Kidney Disease: Yes Hx Kidney Stones: Yes (STILL THERE "TINY") - ENDOCRINE/METABOLIC Hx Endocrine Disorders: Yes Hx Hyperthyroidism: Yes - HEMATOLOGICAL/ONCOLOGICAL Hx Blood Disorders: Yes Hx AIDS: No Hx Anemia: Yes Hx Human Immunodeficiency Virus (HIV): No - INTEGUMENTARY Hx Dermatological Problems: No - MUSCULOSKELETAL/RHEUMATOLOGICAL Hx Musculoskeletal Disorders: Yes Hx Arthritis: Yes Hx Falls: No Hx Fractures: Yes (R ankle) - GASTROINTESTINAL Hx Gastrointestinal Disorders: Yes Hx Gastroesophageal Reflux: Yes - GENITOURINARY/GYNECOLOGICAL Hx Genitourinary Disorders: No - PSYCHIATRIC Hx Psychophysiologic Disorder: Yes Hx Anxiety: Yes Hx Depression: Yes Hx Substance Use: No - SURGICAL HISTORY Hx Surgeries: Yes Hx Cholecystectomy: Yes (1997) - ANESTHESIA Hx Anesthesia: Yes Hx Anesthesia Reactions: No Meds Allergies/Adverse Reactions: Allergies Allergy/AdvReac Type Severity Reaction Status Date / Time cefazolin sodium [From Ancef] Allergy RASH Verified 11/25/16 06:59 iodine Allergy convulsions Verified 11/25/16 06:59 meperidine HCl [From Demerol] AdvReac anxiety Verified 11/25/16 06:59 prochlorperazine AdvReac anxiety Verified 11/25/16 06:59 [From Compazine] prochlorperazine edisylate AdvReac anxiety Verified 11/25/16 06:59 [From Compazine] prochlorperazine maleate AdvReac anxiety Verified 11/25/16 06:59 [From Compazine] - Medications Medications: Current Medications Acetaminophen (Tylenol 325mg Tab) 650 mg PO Q4 PRN PRN Reason: Fever >100.4 F Amlodipine Besylate (Norvasc) 10 mg PO DAILY [facility] Last Admin: 12/08/16 12:14 Dose: 10 mg Aspirin (Aspirin Chewable) 81 mg PO DAILY [facility] Last Admin: 12/08/16 10:15 Dose: 81 mg Buspirone HCl (Buspar) 10 mg PO TID [facility] Last Admin: 12/08/16 12:15 Dose: 10 mg Digoxin (Lanoxin) 0.125 mg PO DAILY [facility] Last Admin: 12/08/16 11:50 Dose: 0.125 mg Famotidine (Pepcid) 20 mg IVP Q12 [facility] Last Admin: 12/08/16 11:50 Dose: 20 mg Gabapentin (Neurontin) 600 mg PO QID [facility] Last Admin: 12/08/16 12:14 Dose: 600 mg Home Med (Desvenlafaxine Succinate [Pristiq]) 1 tab PO HS [facility] Last Admin: 12/07/16 22:45 Dose: 1 tab Hydromorphone HCl (Dilaudid) 0.5 mg IVP Q4 PRN PRN Reason: Pain, severe (8-10) Last Admin: 12/08/16 12:15 Dose: 0.5 mg Ciprofloxacin (Cipro 400mg/200ml Dsw) 400 mg in 200 mls @ 200 mls/hr IVPB Q12 [facility] Last Admin: 12/08/16 10:55 Dose: 200 mls/hr Metronidazole (Flagyl 500mg/100ml Ns) 100 mls @ 100 mls/hr IVPB Q8 [facility] Last Admin: 12/08/16 10:54 Dose: 100 mls/hr Lactated Ringer's (Lactated Ringer's) 1,000 mls @ 125 mls/hr IV .Q8H [facility] Last Admin: 12/08/16 10:21 Dose: 125 mls/hr Methimazole (Tapazole) 10 mg PO MOTH [facility] Ondansetron HCl (Zofran Inj) 4 mg IVP Q4 PRN PRN Reason: Nausea/Vomiting Last Admin: 12/08/16 10:50 Dose: 4 mg Physical Exam - Constitutional Appears: Non-toxic - Head Exam Head Exam: ATRAUMATIC, NORMAL INSPECTION, NORMOCEPHALIC - Eye Exam Eye Exam: EOMI, Normal appearance, PERRL. absent: Conjunctival injection, Nystagmus, Periorbital swelling, Periorbital tenderness, Scleral icterus Pupil Exam: NORMAL ACCOMODATION, PERRL. absent: Fixed, Irregular, Miosis, Mydriatic, Unequal - ENT Exam ENT Exam: Mucous Membranes Moist, Normal Exam. absent: Mucous Membranes Dry, Normal External Ear Exam, Normal Oropharynx, TM's Normal Bilaterally - Neck Exam Neck exam: Positive for: Normal Inspection. Negative for: Full Rom, Lymphadenopathy, Meningismus, Tenderness, Thyromegaly - Respiratory Exam Respiratory Exam: Clear to Auscultation Bilateral, NORMAL BREATHING PATTERN. absent: Accessory Muscle Use, Chest Wall Tenderness, Decreased Breath Sounds, Prolonged Expiratory Phase, Rales, Rhonchi, Wheezes, Respiratory Distress, Stridor - Cardiovascular Exam Cardiovascular Exam: Irregular Rhythm, +S1, +S2, Systolic Murmur. absent: Bradycardia, Tachycardia, Clicks, Diastolic murmur, Gallop, REGULAR RHYTHM, JVD , RRR, Rubs, +S4 - GI/Abdominal Exam GI & Abdominal Exam: Normal Bowel Sounds, Soft, Tenderness. absent: Bruit, Diminished Bowel Sounds, Distended, Firm, Guarding, Hernia, Hyperactive Bowel Sounds, Hypoactive Bowel Sounds, Mass, Organomegaly, Pulsatile Mass, Rebound, Rigid - Rectal Exam Rectal Exam: Deferred - Extremities Exam Extremities exam: Positive for: normal inspection. Negative for: calf tenderness, full ROM, joint swelling, normal capillary refill, pedal edema, tenderness, pedal pulses present - Back Exam Back exam: NORMAL INSPECTION. absent: CVA tenderness (L), CVA tenderness (R), FULL ROM, muscle spasm, paraspinal tenderness, rash noted, tenderness, vertebral tenderness - Neurological Exam Neurological exam: Alert, CN II-XII Intact, Normal Gait, Oriented x3, Reflexes Normal - Psychiatric Exam Psychiatric exam: Normal Affect, Normal Mood - Skin Skin Exam: Dry, Intact, Normal Color, Warm Results - Vital Signs Recent Vital Signs: Last Vital Signs Temp 97.3 F L 12/08/16 09:00 Pulse 102 H 12/08/16 12:14 Resp 18 12/08/16 09:00 BP 117/89 12/08/16 12:14 Pulse Ox 98 12/08/16 09:00 - Labs Result Diagrams: 12/08/16 06:00 12/08/16 06:00 Labs: Laboratory Results - last 24 hr 12/07/16 12/07/16 12/08/16 18:11 18:11 06:00 WBC 11.3 H D RBC 4.28 Hgb 11.9 L D Hct 36.7 MCV 85.9 MCH 27.8 MCHC 32.4 L RDW 14.2 Plt Count 215 MPV 9.6 Neut % (Auto) 79.1 H Lymph % (Auto) 16.1 L [place] % (Auto) 4.3 Eos % (Auto) 0.3 Baso % (Auto) 0.2 Neut # 8.9 H Lymph # 1.8 [place] # 0.5 Eos # 0.0 Baso # 0.0 Sodium Potassium Chloride Carbon Dioxide Anion Gap BUN Creatinine Est GFR ( Amer) Est GFR (Non-Af Amer) Random Glucose Calcium Total Bilirubin AST ALT Alkaline Phosphatase Total Protein Albumin Globulin Albumin/Globulin Ratio TSH 3rd Generation Urine Color Yellow Urine Clarity Cloudy Urine pH 6.0 Ur Specific [place] 1.013 Urine Protein Negative Urine Glucose (UA) Neg Urine Ketones 20 Urine Blood Negative Urine Nitrate Negative Urine Bilirubin Negative Urine Urobilinogen 0.2-1.0 Ur Leukocyte Esterase Large Urine Microscopic WBC 59 H Ur Squamous Epith Cells 6 H Hyaline Casts 6-10 H Urine Opiates Screen Positive H Urine Methadone Screen Negative Ur Barbiturates Screen Negative Ur Phencyclidine Scrn Negative Ur Amphetamines Screen Negative U Benzodiazepines Scrn Negative U Oth Cocaine Metabols Negative U Cannabinoids Screen Negative 12/08/16 06:00 WBC RBC Hgb Hct MCV MCH MCHC RDW Plt Count MPV Neut % (Auto) Lymph % (Auto) [place] % (Auto) Eos % (Auto) Baso % (Auto) Neut # Lymph # [place] # Eos # Baso # Sodium 143 Potassium 4.0 Chloride 105 Carbon Dioxide 30 Anion Gap 12 BUN 8 Creatinine 0.6 L Est GFR ( Amer) > 60 Est GFR (Non-Af Amer) > 60 Random Glucose 104 Calcium 9.0 Total Bilirubin 0.6 AST 53 H D ALT 139 H D Alkaline Phosphatase 137 H D Total Protein 6.3 Albumin 3.5 D Globulin 2.9 Albumin/Globulin Ratio 1.2 TSH 3rd Generation 0.58 Urine Color Urine Clarity Urine pH Ur Specific [place] Urine Protein Urine Glucose (UA) Urine Ketones Urine Blood Urine Nitrate Urine Bilirubin Urine Urobilinogen Ur Leukocyte Esterase Urine Microscopic WBC Ur Squamous Epith Cells Hyaline Casts Urine Opiates Screen Urine Methadone Screen Ur Barbiturates Screen Ur Phencyclidine Scrn Ur Amphetamines Screen U Benzodiazepines Scrn U Oth Cocaine Metabols U Cannabinoids Screen - Impressions Impression: EKG SHOWS RAPID AFIB Assessment & Plan (1) Diverticulitis large intestine Status: Acute (2) Atrial fibrillation Status: Acute (3) HTN (hypertension) Status: Chronic (4) Hyperthyroidism Status: Chronic - Assessment and Plan (Free Text) Plan: PTS RAPID RATE WAS LIKELY DUE TO PAIN WILL CONTINUE SAME MEDS FOR HR CONTROL CHECK DIG LEVEL CONTROL PAIN REPLEAT LYTES RATE IS CONTROLLED ON TELE
[2016-12-08] MEDS: DESVENLAFAXINE SUCCINATE PO SCH (22:46)
[2016-12-09] MEDS: metroNIDAZOLE 500mg/100ml NS 100 ML IVPB SCH ×3 (00:25→17:11)
[2016-12-09] MEDS: Lactated Ringer's 1,000 ML IV SCH ×2 (02:30→14:00)
[2016-12-09 08:05] LABS: HEMOGLOBIN 11.8 g/dL (12.0-16.0); MEAN CELL VOLUME 85.9 fl (81.0-99.0); MEAN CORPUSCULAR HEMOGLOBIN 28.2 pg (27.0-31.0); MEAN CORPUSCULAR HGB CONC 32.9 g/dL (33.0-37.0); RBC 4.19 Mil/uL (3.80-5.20); RED CELL DISTRIBUTION WIDTH 14.2 % (11.5-14.5)
[2016-12-09 08:21] LABS: INR 1.2 (0.9-1.2); PROTHROMBIN TIME 12.3 Seconds (9.8-13.1)
[2016-12-09 08:25] LABS: ALB/GLOB RATIO 1.3 (1.0-2.1); ALBUMIN 3.7 g/dL (3.5-5.0); ALT/SGPT 116 U/L (9-52); AST/SGOT 39 U/L (14-36); BLOOD UREA NITROGEN 5 mg/dl (7-17); CALCIUM 8.7 mg/dL (8.4-10.2); GFR AFRICAN-AMERICAN > 60; GFR NON-AFRICAN AMERICAN > 60; MAGNESIUM 1.8 MG/DL (1.6-2.3)
[2016-12-09] MEDS: Ciprofloxacin 400mg/200ml D5W 400 MG/200 ML BAG IVPB SCH ×2 (08:40→21:04)
[2016-12-09] MEDS: Digoxin 125 mcg (0.125 mg) Tab PO SCH (08:43)
[2016-12-09 08:44] LABS: WHITE BLOOD COUNT 5.4 K/uL (4.8-10.8)
[2016-12-09] MEDS ORDERED: Metoclopramide 10 mg/10 ml Cup PO PRN (09:42)
--- NOTE | 2016-12-09 09:44 | CP.PCM.PN ---
Subjective - Date & Time of Evaluation Date of Evaluation: 12/09/16 Time of Evaluation: 09:44 - Subjective Subjective: pt still w/ migraine. no relief from dilaudid or toradol. no f/c, n/v/d. am labs noted. wbc nad lft trending down spoke w/ dr aldana cld ordered. has headace w/ lue numbness. fast s/s negative. ct head ordered. pt has h/o migraines w/ cervical spine stenosis Objective - Vital Signs/Intake and Output Vital Signs (last 24 hours): Temp Pulse Resp BP Pulse Ox 98.7 F 96 H 18 146/94 H 96 12/09/16 08:00 12/09/16 08:42 12/09/16 08:00 12/09/16 08:42 12/09/16 08:00 - Medications Medications: Current Medications Acetaminophen (Tylenol 325mg Tab) 650 mg PO Q4 PRN PRN Reason: Fever >100.4 F Acetaminophen/Butalbital/Caffeine (Fioricet) 1 tab PO Q4 PRN PRN Reason: Migraine headache Amlodipine Besylate (Norvasc) 10 mg PO DAILY [facility] Last Admin: 12/09/16 08:42 Dose: 10 mg Aspirin (Aspirin Chewable) 81 mg PO DAILY [facility] Last Admin: 12/09/16 08:42 Dose: 81 mg Buspirone HCl (Buspar) 10 mg PO TID [facility] Last Admin: 12/09/16 08:42 Dose: 10 mg Digoxin (Lanoxin) 0.125 mg PO DAILY [facility] Last Admin: 12/09/16 08:43 Dose: 0.125 mg Famotidine (Pepcid) 20 mg IVP Q12 [facility] Last Admin: 12/08/16 21:00 Dose: 20 mg Gabapentin (Neurontin) 600 mg PO QID [facility] Last Admin: 12/09/16 08:42 Dose: 600 mg Home Med (Desvenlafaxine Succinate [Pristiq]) 1 tab PO HS [facility] Last Admin: 12/08/16 22:46 Dose: 1 tab Hydromorphone HCl (Dilaudid) 0.5 mg IVP Q4 PRN PRN Reason: Pain, severe (8-10) Last Admin: 12/09/16 08:33 Dose: 0.5 mg Ciprofloxacin (Cipro 400mg/200ml Dsw) 400 mg in 200 mls @ 200 mls/hr IVPB Q12 [facility] Last Admin: 12/09/16 08:40 Dose: 200 mls/hr Metronidazole (Flagyl 500mg/100ml Ns) 100 mls @ 100 mls/hr IVPB Q8 [facility] Last Admin: 12/09/16 08:41 Dose: 100 mls/hr Lactated Ringer's (Lactated Ringer's) 1,000 mls @ 125 mls/hr IV .Q8H [facility] Last Admin: 12/09/16 02:30 Dose: 125 mls/hr Ketorolac Tromethamine (Toradol) 30 mg IVP Q6 PRN PRN Reason: migraine Last Admin: 12/08/16 22:33 Dose: 30 mg Methimazole (Tapazole) 10 mg PO MOTH [facility] Metoclopramide HCl (Reglan) 10 mg PO Q6 PRN PRN Reason: Migraine headache Ondansetron HCl (Zofran Inj) 4 mg IVP Q4 PRN PRN Reason: Nausea/Vomiting Last Admin: 12/09/16 08:41 Dose: 4 mg - Labs Labs: 12/09/16 06:00 12/09/16 05:30 PT 12.3 Seconds (9.8-13.1) 12/09/16 06:00 INR 1.2 (0.9-1.2) 12/09/16 06:00 - Constitutional Appears: Well, Non-toxic, No Acute Distress - Head Exam Head Exam: ATRAUMATIC, NORMAL INSPECTION, NORMOCEPHALIC - Eye Exam Eye Exam: EOMI, Normal appearance, PERRL Pupil Exam: NORMAL ACCOMODATION, PERRL - ENT Exam ENT Exam: Mucous Membranes Moist, Normal Exam - Neck Exam Neck Exam: Full ROM, Normal Inspection. absent: Lymphadenopathy - Respiratory Exam Respiratory Exam: Clear to Ausculation Bilateral, NORMAL BREATHING PATTERN - Cardiovascular Exam Cardiovascular Exam: REGULAR RHYTHM, RRR, +S1, +S2. absent: Murmur - GI/Abdominal Exam GI & Abdominal Exam: Soft, Tenderness, Normal Bowel Sounds - Extremities Exam Extremities Exam: Full ROM, Normal Capillary Refill, Normal Inspection. absent : Joint Swelling, Pedal Edema - Back Exam Back Exam: NORMAL INSPECTION - Neurological Exam Neurological Exam: Alert, Awake, CN II-XII Intact, Normal Gait, Oriented x3 - Psychiatric Exam Psychiatric exam: Normal Affect, Normal Mood - Skin Skin Exam: Dry, Intact, Normal Color, Warm Assessment and Plan (1) DVT prophylaxis Status: Acute (2) Diverticulitis large intestine Status: Acute (3) Atrial fibrillation Status: Acute (4) Elevated LFTs Status: Acute - Assessment and Plan (Free Text) Assessment: (1) DVT prophylaxis Assessment and Plan: scd dylan ehose hold anticoag for now lovenox Status: Acute (2) Diverticulitis large intestine Assessment and Plan: cipro/falgyl surgery/gi start cld per dr aldana pain and nausea control Status: Acute (3) Atrial fibrillation Assessment and Plan: ?? r/t fever cardio cont home meds Status: Acute (4) Elevated LFTs Assessment and Plan: ?? r/t tylenol for pain, will moniotr, gi trending down Status: Acute [id number], reglan, fioricet ct head as pt has lue numbness
--- NOTE | 2016-12-09 09:59 | CP.PCM.PN ---
<Luis Watson - Last Filed: 12/09/16 12:32> Subjective - Date & Time of Evaluation Date of Evaluation: 12/09/16 Time of Evaluation: 06:45 - Subjective Subjective: General Surgery Progress Note for Dr. Malagon Patient seen and examined at bedside. No acute event overnight. Patient resting in bed comfortably. Patient is complaining of headache and pain in LLQ. She states pain has slightly improved and controlled with medications. Patient reports flatus. She is ambulating and void without difficulty. Denies fever/ chills, cp, sob, palpitations, n/v/d. Objective - Vital Signs/Intake and Output Vital Signs (last 24 hours): Temp Pulse Resp BP Pulse Ox 98.7 F 96 H 18 146/94 H 96 12/09/16 08:00 12/09/16 08:42 12/09/16 08:00 12/09/16 08:42 12/09/16 08:00 - Medications Medications: Current Medications Acetaminophen (Tylenol 325mg Tab) 650 mg PO Q4 PRN PRN Reason: Fever >100.4 F Acetaminophen/Butalbital/Caffeine (Fioricet) 1 tab PO Q4 PRN PRN Reason: Migraine headache Amlodipine Besylate (Norvasc) 10 mg PO DAILY ON [facility] OF [facility] Last Admin: 12/09/16 08:42 Dose: 10 mg Aspirin (Aspirin Chewable) 81 mg PO DAILY ON [facility] Last Admin: 12/09/16 08:42 Dose: 81 mg Buspirone HCl (Buspar) 10 mg PO TID ON [facility] OF [facility] Last Admin: 12/09/16 08:42 Dose: 10 mg Digoxin (Lanoxin) 0.125 mg PO DAILY ON [facility] Last Admin: 12/09/16 08:43 Dose: 0.125 mg Famotidine (Pepcid) 20 mg IVP Q12 ON [facility] Last Admin: 12/08/16 21:00 Dose: 20 mg Gabapentin (Neurontin) 600 mg PO QID ON [facility] OF [facility] Last Admin: 12/09/16 08:42 Dose: 600 mg Home Med (Desvenlafaxine Succinate [Pristiq]) 1 tab PO HS ON [facility] OF [facility] Last Admin: 12/08/16 22:46 Dose: 1 tab Hydromorphone HCl (Dilaudid) 0.5 mg IVP Q4 PRN PRN Reason: Pain, severe (8-10) Last Admin: 12/09/16 08:33 Dose: 0.5 mg Ciprofloxacin (Cipro 400mg/200ml Dsw) 400 mg in 200 mls @ 200 mls/hr IVPB Q12 ON [facility] Last Admin: 12/09/16 08:40 Dose: 200 mls/hr Metronidazole (Flagyl 500mg/100ml Ns) 100 mls @ 100 mls/hr IVPB Q8 ON [facility] OF [facility] Last Admin: 12/09/16 08:41 Dose: 100 mls/hr Lactated Ringer's (Lactated Ringer's) 1,000 mls @ 125 mls/hr IV .Q8H ON [facility] OF [facility] Last Admin: 12/09/16 02:30 Dose: 125 mls/hr Ketorolac Tromethamine (Toradol) 30 mg IVP Q6 PRN PRN Reason: migraine Last Admin: 12/08/16 22:33 Dose: 30 mg Methimazole (Tapazole) 10 mg PO MOTH [place] Metoclopramide HCl (Reglan) 10 mg PO Q6 PRN PRN Reason: Migraine headache Ondansetron HCl (Zofran Inj) 4 mg IVP Q4 PRN PRN Reason: Nausea/Vomiting Last Admin: 12/09/16 08:41 Dose: 4 mg - Labs Labs: 12/09/16 06:00 12/09/16 05:30 PT 12.3 Seconds (9.8-13.1) 12/09/16 06:00 INR 1.2 (0.9-1.2) 12/09/16 06:00 - Constitutional Appears: No Acute Distress - Head Exam Head Exam: ATRAUMATIC, NORMOCEPHALIC - Eye Exam Eye Exam: Normal appearance - ENT Exam ENT Exam: Mucous Membranes Moist - Neck Exam Neck Exam: Full ROM - Respiratory Exam Respiratory Exam: NORMAL BREATHING PATTERN - Cardiovascular Exam Cardiovascular Exam: Tachycardia - GI/Abdominal Exam GI & Abdominal Exam: Soft, Tenderness (mild LLQ). absent: Distended, Firm, Guarding, Rigid, Rebound - Extremities Exam Extremities Exam: absent: Calf Tenderness - Back Exam Back Exam: absent: CVA tenderness (L), CVA tenderness (R) - Neurological Exam Neurological Exam: Alert, Awake, Oriented x3 - Psychiatric Exam Psychiatric exam: Normal Affect, Normal Mood - Skin Skin Exam: Dry, Intact, Normal Color, Warm Assessment and Plan - Assessment and Plan (Free Text) Plan: 51 F with Acute sigmoid diverticulitis - CLD - Continue IVF and IV ABX - Pain control - f/U GI recommendations - Will DW Dr. Vesna Watson PGY1 <Lio Malagon - Last Filed: 12/09/16 14:07> Subjective - Date & Time of Evaluation Time of Evaluation: 13:35 - Subjective Subjective: Patient was seen and examined at the bedside. Agree with resident's note above. Objective - Vital Signs/Intake and Output Vital Signs (last 24 hours): Temp Pulse Resp BP Pulse Ox 98.1 F 108 H 18 120/85 99 12/09/16 12:26 12/09/16 12:26 12/09/16 12:26 12/09/16 12:26 12/09/16 12:26 - Medications Medications: Current Medications Acetaminophen (Tylenol 325mg Tab) 650 mg PO Q4 PRN PRN Reason: Fever >100.4 F Acetaminophen/Butalbital/Caffeine (Fioricet) 1 tab PO Q4 PRN PRN Reason: Migraine headache Last Admin: 12/09/16 10:31 Dose: 1 tab Amlodipine Besylate (Norvasc) 10 mg PO DAILY ON [facility] Last Admin: 12/09/16 08:42 Dose: 10 mg Aspirin (Aspirin Chewable) 81 mg PO DAILY ON [facility] Last Admin: 12/09/16 08:42 Dose: 81 mg Buspirone HCl (Buspar) 10 mg PO TID ON [facility] Last Admin: 12/09/16 14:00 Dose: 10 mg Digoxin (Lanoxin) 0.125 mg PO DAILY ON [facility] Last Admin: 12/09/16 08:43 Dose: 0.125 mg Famotidine (Pepcid) 20 mg IVP Q12 [facility] Last Admin: 12/09/16 10:31 Dose: 20 mg Gabapentin (Neurontin) 600 mg PO QID ON [facility] Last Admin: 12/09/16 14:00 Dose: 600 mg Home Med (Desvenlafaxine Succinate [Pristiq]) 1 tab PO HS ON [facility] Last Admin: 12/08/16 22:46 Dose: 1 tab Hydromorphone HCl (Dilaudid) 0.5 mg IVP Q4 PRN PRN Reason: Pain, severe (8-10) Last Admin: 12/09/16 14:00 Dose: 0.5 mg Ciprofloxacin (Cipro 400mg/200ml Dsw) 400 mg in 200 mls @ 200 mls/hr IVPB Q12 [facility] Last Admin: 12/09/16 08:40 Dose: 200 mls/hr Metronidazole (Flagyl 500mg/100ml Ns) 100 mls @ 100 mls/hr IVPB Q8 [facility] Last Admin: 12/09/16 08:41 Dose: 100 mls/hr Lactated Ringer's (Lactated Ringer's) 1,000 mls @ 125 mls/hr IV .Q8H [facility] Last Admin: 12/09/16 14:00 Dose: 125 mls/hr Ketorolac Tromethamine (Toradol) 30 mg IVP Q6 PRN PRN Reason: migraine Last Admin: 12/08/16 22:33 Dose: 30 mg Methimazole (Tapazole) 10 mg PO MOTH ON [facility] Metoclopramide HCl (Reglan) 10 mg PO Q6 PRN PRN Reason: Migraine headache Last Admin: 12/09/16 10:31 Dose: 10 mg Metoprolol Tartrate (Lopressor) 25 mg PO Q12 ON [facility] Ondansetron HCl (Zofran Inj) 4 mg IVP Q4 PRN PRN Reason: Nausea/Vomiting Last Admin: 12/09/16 08:41 Dose: 4 mg - Labs Labs: 12/09/16 06:00 12/09/16 05:30 PT 12.3 Seconds (9.8-13.1) 12/09/16 06:00 INR 1.2 (0.9-1.2) 12/09/16 06:00
[2016-12-09] MEDS: Apap-Butalbital-Caffeine 325-50-40mg Tab PO PRN ×3 (10:31→18:39)
--- NOTE | 2016-12-09 12:06 | CT ---
PROCEDURE: CT HEAD WITHOUT CONTRAST. HISTORY: left arm numbness COMPARISON: None available. TECHNIQUE: Axial computed tomography images were obtained through the head/brain without intravenous contrast. Radiation dose: Total exam DLP = 864 mGy-cm. This CT exam was performed using one or more of the following dose reduction techniques: Automated exposure control, adjustment of the mA and/or kV according to patient size, and/or use of iterative reconstruction technique. FINDINGS: HEMORRHAGE: No intracranial hemorrhage. BRAIN: No mass effect or edema. No atrophy or chronic microvascular ischemic changes. VENTRICLES: Unremarkable. No hydrocephalus. CALVARIUM: Unremarkable. PARANASAL SINUSES: Unremarkable as visualized. No significant inflammatory changes. MASTOID AIR CELLS: Unremarkable as visualized. No inflammatory changes. OTHER FINDINGS: None. IMPRESSION: Normal CT of the Head.
--- NOTE | 2016-12-09 19:33 | CP.PCM.PN ---
Subjective - Date & Time of Evaluation Date of Evaluation: 12/09/16 Time of Evaluation: 19:31 - Subjective Subjective: PT W/O COMPLAINTS. HR HAS BEEN TACHY ON TELE. BP STABLE. Objective - Vital Signs/Intake and Output Vital Signs (last 24 hours): Temp Pulse Resp BP Pulse Ox 98.5 F 111 H 20 138/84 95 12/09/16 15:44 12/09/16 15:44 12/09/16 15:44 12/09/16 15:44 12/09/16 15:44 Intake and Output: 12/09/16 12/10/16 18:59 06:59 Intake Total 1600 Balance 1600 - Medications Medications: Current Medications Acetaminophen (Tylenol 325mg Tab) 650 mg PO Q4 PRN PRN Reason: Fever >100.4 F Acetaminophen/Butalbital/Caffeine (Fioricet) 1 tab PO Q4 PRN PRN Reason: Migraine headache Last Admin: 12/09/16 18:39 Dose: 1 tab Amlodipine Besylate (Norvasc) 10 mg PO DAILY [facility] Last Admin: 12/09/16 08:42 Dose: 10 mg Aspirin (Aspirin Chewable) 81 mg PO DAILY [facility] Last Admin: 12/09/16 08:42 Dose: 81 mg Buspirone HCl (Buspar) 10 mg PO TID [facility] Last Admin: 12/09/16 18:39 Dose: 10 mg Digoxin (Lanoxin) 0.125 mg PO DAILY [facility] Last Admin: 12/09/16 08:43 Dose: 0.125 mg Famotidine (Pepcid) 20 mg IVP Q12 [facility] Last Admin: 12/09/16 10:31 Dose: 20 mg Gabapentin (Neurontin) 600 mg PO QID [facility] Last Admin: 12/09/16 18:39 Dose: 600 mg Home Med (Desvenlafaxine Succinate [Pristiq]) 1 tab PO HS [facility] Last Admin: 12/08/16 22:46 Dose: 1 tab Hydromorphone HCl (Dilaudid) 0.5 mg IVP Q4 PRN PRN Reason: Pain, severe (8-10) Last Admin: 12/09/16 14:00 Dose: 0.5 mg Ciprofloxacin (Cipro 400mg/200ml Dsw) 400 mg in 200 mls @ 200 mls/hr IVPB Q12 [facility] Last Admin: 12/09/16 08:40 Dose: 200 mls/hr Metronidazole (Flagyl 500mg/100ml Ns) 100 mls @ 100 mls/hr IVPB Q8 [facility] Last Admin: 12/09/16 17:11 Dose: 100 mls/hr Lactated Ringer's (Lactated Ringer's) 1,000 mls @ 125 mls/hr IV .Q8H [facility] Last Admin: 12/09/16 14:00 Dose: 125 mls/hr Ketorolac Tromethamine (Toradol) 30 mg IVP Q6 PRN PRN Reason: migraine Last Admin: 12/08/16 22:33 Dose: 30 mg Methimazole (Tapazole) 10 mg PO MOTH [place] Metoclopramide HCl (Reglan) 10 mg PO Q6 PRN PRN Reason: Migraine headache Last Admin: 12/09/16 10:31 Dose: 10 mg Metoprolol Tartrate (Lopressor) 25 mg PO Q12 [facility] Ondansetron HCl (Zofran Inj) 4 mg IVP Q4 PRN PRN Reason: Nausea/Vomiting Last Admin: 12/09/16 08:41 Dose: 4 mg - Labs Labs: 12/09/16 06:00 12/09/16 05:30 PT 12.3 Seconds (9.8-13.1) 12/09/16 06:00 INR 1.2 (0.9-1.2) 12/09/16 06:00 - Constitutional Appears: Well - Head Exam Head Exam: ATRAUMATIC, NORMAL INSPECTION, NORMOCEPHALIC - Eye Exam Eye Exam: EOMI, Normal appearance, PERRL. absent: Conjunctival injection, Nystagmus, Periorbital swelling, Periorbital tenderness, Scleral icterus Pupil Exam: NORMAL ACCOMODATION, PERRL - ENT Exam ENT Exam: Mucous Membranes Moist, Normal Exam. absent: Mucous Membranes Dry, Normal External Ear Exam, Normal Oropharynx, TM's Normal Bilaterally - Neck Exam Neck Exam: Full ROM, Normal Inspection. absent: Lymphadenopathy, Meningismus, Tenderness, Thyromegaly - Respiratory Exam Respiratory Exam: Clear to Ausculation Bilateral, NORMAL BREATHING PATTERN. absent: Accessory Muscle Use, Chest Wall Tenderness, Decreased Breath Sounds, Prolonged Expiratory Phase, Rales, Rhonchi, Wheezes, Respiratory Distress, Stridor - Cardiovascular Exam Cardiovascular Exam: Tachycardia, Irregular Rhythm, +S1, +S2, Murmur. absent: Bradycardia, Clicks, Diastolic murmur, Gallop, REGULAR RHYTHM, JVD, RRR, Rubs, + S4 - GI/Abdominal Exam GI & Abdominal Exam: Soft, Tenderness, Normal Bowel Sounds. absent: Bruit, Distended, Firm, Guarding, Rigid, Diminished Bowel Sounds, Hernia, Hyperactive Bowel Sounds, Hypoactive Bowel Sounds, Organomegaly, Pulsatile Mass, Rebound, Mass - Rectal Exam Rectal Exam: Deferred - Extremities Exam Extremities Exam: Full ROM, Normal Capillary Refill, Normal Inspection. absent : Calf Tenderness, Joint Swelling, Pedal Edema, Tenderness - Back Exam Back Exam: NORMAL INSPECTION. absent: CVA tenderness (L), CVA tenderness (R), Full ROM, muscle spasm, paraspinal tenderness, rash noted, tenderness, vertebral tenderness - Neurological Exam Neurological Exam: Alert, Awake, CN II-XII Intact, Normal Gait, Oriented x3. absent: Abnormal Gait, Altered, Motor Sensory Deficit, Reflexes Normal - Psychiatric Exam Psychiatric exam: Normal Affect, Normal Mood. absent: Agitated, Anxious, Depressed, Flat Affect, Homicidal Ideation, Manic, Suicidal Ideation - Skin Skin Exam: Dry, Intact, Normal Color, Warm. absent: Abrasion, Cyanosis, Diaphoretic, Erythema, Mottled, Pallor, Pallor, Petechiae, Rash, Urticaria, Vesicles Assessment and Plan (1) Diverticulitis large intestine Status: Acute (2) Atrial fibrillation Status: Acute (3) HTN (hypertension) Status: Chronic (4) Hyperthyroidism Status: Chronic - Assessment and Plan (Free Text) Plan: ADDED METOPROLOL 25 BID CONTINUE TELE WILL ADJUST FOR HR AND BP CONTROL MONITOR LABS. 60 MIN TOTAL CARE TIME.
[2016-12-09] MEDS: DESVENLAFAXINE SUCCINATE PO SCH (21:04)
[2016-12-10] MEDS: metroNIDAZOLE 500mg/100ml NS 100 ML IVPB SCH ×3 (01:14→17:00)
[2016-12-10 06:37] LABS: BASO % 0.8 % (0.0-2.0); EOS % 0.1 % (0.0-4.0); HEMOGLOBIN 12.5 g/dL (12.0-16.0); LYMPH % 45.2 % (20.0-40.0); MEAN CELL VOLUME 85.5 fl (81.0-99.0); MEAN CORPUSCULAR HEMOGLOBIN 28.3 pg (27.0-31.0); MEAN CORPUSCULAR HGB CONC 33.1 g/dL (33.0-37.0); MEAN PLATELET VOLUME 9.4 fl (7.2-11.7); MONO # 0.4 K/uL (0.0-0.8); MONO % 8.2 % (0.0-10.0); NEUT % 45.7 % (50.0-75.0); NRBC % 0.2 % (0.0-0.0); RBC 4.41 Mil/uL (3.80-5.20); RED CELL DISTRIBUTION WIDTH 14.2 % (11.5-14.5); WHITE BLOOD COUNT 4.4 K/uL (4.8-10.8)
[2016-12-10 06:47] LABS: ALB/GLOB RATIO 1.2 (1.0-2.1); ALBUMIN 3.6 g/dL (3.5-5.0); ALT/SGPT 100 U/L (9-52); AST/SGOT 23 U/L (14-36); BLOOD UREA NITROGEN 4 mg/dl (7-17); CALCIUM 9.1 mg/dL (8.4-10.2); GFR AFRICAN-AMERICAN > 60; GFR NON-AFRICAN AMERICAN > 60
--- NOTE | 2016-12-10 07:10 | CP.PCM.PN ---
Subjective - Date & Time of Evaluation Date of Evaluation: 12/10/16 Time of Evaluation: 07:08 - Subjective Subjective: Surgery Pt s&e. NAEON. Tolerating CLD. Pain controlled. + amb, + void. c/o drowsiness at night after meds. Objective - Vital Signs/Intake and Output Vital Signs (last 24 hours): Temp Pulse Resp BP Pulse Ox 98.3 F 95 H 20 136/84 96 12/10/16 05:21 12/10/16 05:21 12/10/16 05:21 12/10/16 05:21 12/10/16 05:21 - Medications Medications: Current Medications Acetaminophen (Tylenol 325mg Tab) 650 mg PO Q4 PRN PRN Reason: Fever >100.4 F Acetaminophen/Butalbital/Caffeine (Fioricet) 1 tab PO Q4 PRN PRN Reason: Migraine headache Last Admin: 12/09/16 18:39 Dose: 1 tab Amlodipine Besylate (Norvasc) 10 mg PO DAILY [facility] Last Admin: 12/09/16 08:42 Dose: 10 mg Aspirin (Aspirin Chewable) 81 mg PO DAILY [facility] Last Admin: 12/09/16 08:42 Dose: 81 mg Buspirone HCl (Buspar) 10 mg PO TID [facility] Last Admin: 12/09/16 18:39 Dose: 10 mg Digoxin (Lanoxin) 0.125 mg PO DAILY [facility] Last Admin: 12/09/16 08:43 Dose: 0.125 mg Famotidine (Pepcid) 20 mg IVP Q12 [facility] Last Admin: 12/09/16 21:04 Dose: 20 mg Gabapentin (Neurontin) 600 mg PO QID [facility] Last Admin: 12/09/16 21:03 Dose: 600 mg Home Med (Desvenlafaxine Succinate [Pristiq]) 1 tab PO HS [facility] Last Admin: 12/09/16 21:04 Dose: 1 tab Hydromorphone HCl (Dilaudid) 0.5 mg IVP Q4 PRN PRN Reason: Pain, severe (8-10) Last Admin: 12/09/16 23:43 Dose: 0.5 mg Ciprofloxacin (Cipro 400mg/200ml Dsw) 400 mg in 200 mls @ 200 mls/hr IVPB Q12 [facility] Last Admin: 12/09/16 21:04 Dose: 200 mls/hr Metronidazole (Flagyl 500mg/100ml Ns) 100 mls @ 100 mls/hr IVPB Q8 [facility] Last Admin: 12/10/16 01:14 Dose: 100 mls/hr Lactated Ringer's (Lactated Ringer's) 1,000 mls @ 125 mls/hr IV .Q8H [facility] Last Admin: 12/09/16 14:00 Dose: 125 mls/hr Ketorolac Tromethamine (Toradol) 30 mg IVP Q6 PRN PRN Reason: migraine Last Admin: 12/08/16 22:33 Dose: 30 mg Methimazole (Tapazole) 10 mg PO MOTH [place] Metoclopramide HCl (Reglan) 10 mg PO Q6 PRN PRN Reason: Migraine headache Last Admin: 12/09/16 10:31 Dose: 10 mg Metoprolol Tartrate (Lopressor) 25 mg PO Q12 [facility] Last Admin: 12/09/16 21:03 Dose: 25 mg Ondansetron HCl (Zofran Inj) 4 mg IVP Q4 PRN PRN Reason: Nausea/Vomiting Last Admin: 12/09/16 21:15 Dose: 4 mg - Labs Labs: 12/10/16 05:50 12/10/16 05:50 PT 12.3 Seconds (9.8-13.1) 12/09/16 06:00 INR 1.2 (0.9-1.2) 12/09/16 06:00 - Constitutional Appears: No Acute Distress - Head Exam Head Exam: ATRAUMATIC, NORMAL INSPECTION, NORMOCEPHALIC - Eye Exam Eye Exam: EOMI, Normal appearance, PERRL Pupil Exam: NORMAL ACCOMODATION, PERRL - ENT Exam ENT Exam: Mucous Membranes Moist, Normal Exam - Neck Exam Neck Exam: Full ROM, Normal Inspection. absent: Lymphadenopathy - Respiratory Exam Respiratory Exam: Clear to Ausculation Bilateral, NORMAL BREATHING PATTERN - Cardiovascular Exam Cardiovascular Exam: REGULAR RHYTHM, +S1, +S2. absent: Murmur - GI/Abdominal Exam GI & Abdominal Exam: Soft, Tenderness, Normal Bowel Sounds. absent: Distended, Firm, Guarding Additional comments: Low abd TTP - Exam Exam: NORMAL INSPECTION - Extremities Exam Extremities Exam: Full ROM, Normal Capillary Refill, Normal Inspection. absent : Joint Swelling, Pedal Edema - Back Exam Back Exam: NORMAL INSPECTION - Neurological Exam Neurological Exam: Alert, Awake, CN II-XII Intact, Normal Gait, Oriented x3 - Psychiatric Exam Psychiatric exam: Normal Affect - Skin Skin Exam: Dry, Intact, Normal Color, Warm Assessment and Plan - Assessment and Plan (Free Text) Assessment: 51 F with Acute sigmoid diverticulitis - Advance diet - Continue IVF and IV ABX - Pain control - f/U GI recommendations - Will BREA attending
[2016-12-10] MEDS ORDERED: Potassium Chloride 20 mEq ER Tab PO ONE (07:13)
--- NOTE | 2016-12-10 07:19 | CP.PCM.PN ---
Subjective - Date & Time of Evaluation Date of Evaluation: 12/10/16 Time of Evaluation: 07:19 - Subjective Subjective: no abd pain. nof /c , n/v/d still w/ migraine. couldnt sleep well r/t pain. ct head yesterday was negative. no further c/o numbness to extremeties Objective - Vital Signs/Intake and Output Vital Signs (last 24 hours): Temp Pulse Resp BP Pulse Ox 98.3 F 95 H 20 136/84 96 12/10/16 05:21 12/10/16 05:21 12/10/16 05:21 12/10/16 05:21 12/10/16 05:21 - Medications Medications: Current Medications Acetaminophen (Tylenol 325mg Tab) 650 mg PO Q4 PRN PRN Reason: Fever >100.4 F Acetaminophen/Butalbital/Caffeine (Fioricet) 1 tab PO Q4 PRN PRN Reason: Migraine headache Last Admin: 12/09/16 18:39 Dose: 1 tab Amlodipine Besylate (Norvasc) 10 mg PO DAILY [facility] Last Admin: 12/09/16 08:42 Dose: 10 mg Aspirin (Aspirin Chewable) 81 mg PO DAILY [facility] Last Admin: 12/09/16 08:42 Dose: 81 mg Buspirone HCl (Buspar) 10 mg PO TID [facility] Last Admin: 12/09/16 18:39 Dose: 10 mg Digoxin (Lanoxin) 0.125 mg PO DAILY [facility] Last Admin: 12/09/16 08:43 Dose: 0.125 mg Famotidine (Pepcid) 20 mg IVP Q12 [facility] Last Admin: 12/09/16 21:04 Dose: 20 mg Gabapentin (Neurontin) 600 mg PO QID [facility] Last Admin: 12/09/16 21:03 Dose: 600 mg Home Med (Desvenlafaxine Succinate [Pristiq]) 1 tab PO HS [facility] Last Admin: 12/09/16 21:04 Dose: 1 tab Hydromorphone HCl (Dilaudid) 0.5 mg IVP Q4 PRN PRN Reason: Pain, severe (8-10) Last Admin: 12/09/16 23:43 Dose: 0.5 mg Ciprofloxacin (Cipro 400mg/200ml Dsw) 400 mg in 200 mls @ 200 mls/hr IVPB Q12 [facility] Last Admin: 12/09/16 21:04 Dose: 200 mls/hr Metronidazole (Flagyl 500mg/100ml Ns) 100 mls @ 100 mls/hr IVPB Q8 [facility] Last Admin: 12/10/16 01:14 Dose: 100 mls/hr Lactated Ringer's (Lactated Ringer's) 1,000 mls @ 125 mls/hr IV .Q8H [facility] Last Admin: 12/09/16 14:00 Dose: 125 mls/hr Ketorolac Tromethamine (Toradol) 30 mg IVP Q6 PRN PRN Reason: migraine Last Admin: 12/08/16 22:33 Dose: 30 mg Methimazole (Tapazole) 10 mg PO MOTH [place] Metoclopramide HCl (Reglan) 10 mg PO Q6 PRN PRN Reason: Migraine headache Last Admin: 12/09/16 10:31 Dose: 10 mg Metoprolol Tartrate (Lopressor) 25 mg PO Q12 [facility] Last Admin: 12/09/16 21:03 Dose: 25 mg Ondansetron HCl (Zofran Inj) 4 mg IVP Q4 PRN PRN Reason: Nausea/Vomiting Last Admin: 12/09/16 21:15 Dose: 4 mg Potassium Chloride (K-Dur 20 Meq Er Tab) 20 meq PO ONCE ONE Stop: 12/10/16 07:14 - Labs Labs: 12/10/16 05:50 12/10/16 05:50 PT 12.3 Seconds (9.8-13.1) 12/09/16 06:00 INR 1.2 (0.9-1.2) 12/09/16 06:00 - Constitutional Appears: Well, Non-toxic, No Acute Distress - Head Exam Head Exam: ATRAUMATIC, NORMAL INSPECTION, NORMOCEPHALIC - Eye Exam Eye Exam: EOMI, Normal appearance, PERRL Pupil Exam: NORMAL ACCOMODATION, PERRL - ENT Exam ENT Exam: Mucous Membranes Moist, Normal Exam - Neck Exam Neck Exam: Full ROM, Normal Inspection. absent: Lymphadenopathy - Respiratory Exam Respiratory Exam: Clear to Ausculation Bilateral, NORMAL BREATHING PATTERN - Cardiovascular Exam Cardiovascular Exam: REGULAR RHYTHM, RRR, +S1, +S2. absent: Murmur - GI/Abdominal Exam GI & Abdominal Exam: Soft, Tenderness, Normal Bowel Sounds Additional comments: marked less tenderness - Extremities Exam Extremities Exam: Full ROM, Normal Capillary Refill, Normal Inspection. absent : Joint Swelling, Pedal Edema - Back Exam Back Exam: NORMAL INSPECTION - Neurological Exam Neurological Exam: Alert, Awake, CN II-XII Intact, Normal Gait, Oriented x3 - Psychiatric Exam Psychiatric exam: Normal Affect, Normal Mood - Skin Skin Exam: Dry, Intact, Normal Color, Warm Assessment and Plan (1) DVT prophylaxis Status: Acute (2) Diverticulitis large intestine Status: Acute (3) Atrial fibrillation Status: Acute (4) Elevated LFTs Status: Acute - Assessment and Plan (Free Text) Assessment: (1) DVT prophylaxis Assessment and Plan: scd dylan ehose hold anticoag for now lovenox Status: Acute (2) Diverticulitis large intestine Assessment and Plan: cipro/falgyl surgery/gi start cld per dr aldana-tolerated yesterday pain and nausea control pain decreased Status: Acute (3) Atrial fibrillation Assessment and Plan: ?? r/t fever cardio cont home meds Status: Acute (4) Elevated LFTs Assessment and Plan: ?? r/t tylenol for pain, will moniotr, gi trending down Status: Acute [id number], reglan, fioricet ct head as pt has lue numbness-ct negative
[2016-12-10] MEDS: Digoxin 125 mcg (0.125 mg) Tab PO SCH (08:54)
[2016-12-10] MEDS: Ciprofloxacin 400mg/200ml D5W 400 MG/200 ML BAG IVPB SCH ×2 (08:54→21:39)
[2016-12-10] MEDS: Lactated Ringer's 1,000 ML IV SCH ×2 (10:00→19:00)
[2016-12-10] MEDS: Apap-Butalbital-Caffeine 325-50-40mg Tab PO PRN (19:08)
[2016-12-10] MEDS: DESVENLAFAXINE SUCCINATE PO SCH (21:39)
--- NOTE | 2016-12-11 00:24 | CP.PCM.PN ---
Subjective - Date & Time of Evaluation Date of Evaluation: 12/10/16 Time of Evaluation: 17:00 - Subjective Subjective: PT REFUSED METOPROLOL FOR HR CONTROL. PER PT SHE FELT "ABNORMAL" AFTER 1 DOSE. HR REMAINS AROUND 100 AT REST. Objective - Vital Signs/Intake and Output Vital Signs (last 24 hours): Temp Pulse Resp BP Pulse Ox 98.0 F 104 H 18 133/96 H 95 12/10/16 23:52 12/10/16 23:52 12/10/16 23:52 12/10/16 23:52 12/10/16 23:52 - Medications Medications: Current Medications Acetaminophen (Tylenol 325mg Tab) 650 mg PO Q4 PRN PRN Reason: Fever >100.4 F Acetaminophen/Butalbital/Caffeine (Fioricet) 2 tab PO Q4 PRN PRN Reason: Migraine headache Amlodipine Besylate (Norvasc) 10 mg PO DAILY [facility] Last Admin: 12/10/16 08:54 Dose: 10 mg Aspirin (Aspirin Chewable) 81 mg PO DAILY [facility] Last Admin: 12/10/16 08:53 Dose: 81 mg Buspirone HCl (Buspar) 10 mg PO TID [facility] Last Admin: 12/10/16 17:25 Dose: 10 mg Digoxin (Lanoxin) 0.125 mg PO DAILY [facility] Last Admin: 12/10/16 08:54 Dose: 0.125 mg Famotidine (Pepcid) 20 mg IVP Q12 [facility] Last Admin: 12/10/16 21:41 Dose: 20 mg Gabapentin (Neurontin) 600 mg PO QID [facility] Last Admin: 12/10/16 21:41 Dose: 600 mg Home Med (Desvenlafaxine Succinate [Pristiq]) 1 tab PO HS [facility] Last Admin: 12/10/16 21:39 Dose: 1 tab Hydromorphone HCl (Dilaudid) 0.5 mg IVP Q4 PRN PRN Reason: Pain, severe (8-10) Last Admin: 12/10/16 22:12 Dose: 0.5 mg Ciprofloxacin (Cipro 400mg/200ml Dsw) 400 mg in 200 mls @ 200 mls/hr IVPB Q12 [facility] Last Admin: 12/10/16 21:39 Dose: 200 mls/hr Metronidazole (Flagyl 500mg/100ml Ns) 100 mls @ 100 mls/hr IVPB Q8 [facility] Last Admin: 12/10/16 17:00 Dose: 100 mls/hr Lactated Ringer's (Lactated Ringer's) 1,000 mls @ 125 mls/hr IV .Q8H [facility] Last Admin: 12/10/16 19:00 Dose: 125 mls/hr Ketorolac Tromethamine (Toradol) 30 mg IVP Q6 PRN PRN Reason: migraine Last Admin: 12/08/16 22:33 Dose: 30 mg Methimazole (Tapazole) 10 mg PO MOTH [facility] Last Admin: 12/10/16 09:00 Dose: 10 mg Metoclopramide HCl (Reglan) 10 mg PO Q6 PRN PRN Reason: Migraine headache Last Admin: 12/09/16 10:31 Dose: 10 mg Ondansetron HCl (Zofran Inj) 4 mg IVP Q4 PRN PRN Reason: Nausea/Vomiting Last Admin: 12/09/16 21:15 Dose: 4 mg - Labs Labs: 12/10/16 05:50 12/10/16 05:50 PT 12.3 Seconds (9.8-13.1) 12/09/16 06:00 INR 1.2 (0.9-1.2) 12/09/16 06:00 - Constitutional Appears: Well - Head Exam Head Exam: ATRAUMATIC, NORMAL INSPECTION, NORMOCEPHALIC - Eye Exam Eye Exam: EOMI, Normal appearance, PERRL. absent: Conjunctival injection, Nystagmus, Periorbital swelling, Periorbital tenderness, Scleral icterus Pupil Exam: NORMAL ACCOMODATION, PERRL - ENT Exam ENT Exam: Mucous Membranes Moist, Normal Exam. absent: Mucous Membranes Dry, Normal External Ear Exam, Normal Oropharynx, TM's Normal Bilaterally - Neck Exam Neck Exam: Full ROM, Normal Inspection. absent: Lymphadenopathy, Meningismus, Tenderness, Thyromegaly - Respiratory Exam Respiratory Exam: Clear to Ausculation Bilateral, NORMAL BREATHING PATTERN. absent: Accessory Muscle Use, Chest Wall Tenderness, Decreased Breath Sounds, Prolonged Expiratory Phase, Rales, Rhonchi, Wheezes, Respiratory Distress, Stridor - Cardiovascular Exam Cardiovascular Exam: Tachycardia, Irregular Rhythm, +S1, +S2, Murmur. absent: Bradycardia, Clicks, Diastolic murmur, Gallop, REGULAR RHYTHM, JVD, RRR, Rubs, + S4 - GI/Abdominal Exam GI & Abdominal Exam: Soft, Normal Bowel Sounds. absent: Bruit, Distended, Firm , Guarding, Rigid, Tenderness, Diminished Bowel Sounds, Hernia, Hyperactive Bowel Sounds, Hypoactive Bowel Sounds, Organomegaly, Pulsatile Mass, Rebound, Mass - Rectal Exam Rectal Exam: Deferred - Extremities Exam Extremities Exam: Full ROM, Normal Capillary Refill, Normal Inspection. absent : Calf Tenderness, Joint Swelling, Pedal Edema, Tenderness - Back Exam Back Exam: NORMAL INSPECTION. absent: CVA tenderness (L), CVA tenderness (R), Full ROM, muscle spasm, paraspinal tenderness, rash noted, tenderness, vertebral tenderness - Neurological Exam Neurological Exam: Alert, Awake, CN II-XII Intact, Normal Gait, Oriented x3. absent: Abnormal Gait, Altered, Motor Sensory Deficit, Reflexes Normal - Psychiatric Exam Psychiatric exam: Normal Affect, Normal Mood. absent: Agitated, Anxious, Depressed, Flat Affect, Homicidal Ideation, Manic, Suicidal Ideation - Skin Skin Exam: Dry, Intact, Normal Color, Warm. absent: Abrasion, Cyanosis, Diaphoretic, Erythema, Mottled, Pallor, Pallor, Petechiae, Rash, Urticaria, Vesicles Assessment and Plan (1) Diverticulitis large intestine Status: Acute (2) Atrial fibrillation Status: Acute (3) HTN (hypertension) Status: Chronic (4) Hyperthyroidism Status: Chronic - Assessment and Plan (Free Text) Plan: WILL D/C METOPROLOL. CONT TELE WILL FOLLOW
[2016-12-11] MEDS: metroNIDAZOLE 500mg/100ml NS 100 ML IVPB SCH ×3 (01:44→16:56)
[2016-12-11] MEDS: Lactated Ringer's 1,000 ML IV SCH ×3 (01:45→16:59)
--- NOTE | 2016-12-11 07:08 | CP.PCM.PN ---
Subjective - Date & Time of Evaluation Date of Evaluation: 12/11/16 Time of Evaluation: 06:30 - Subjective Subjective: General Surgery Progress Note for Dr. Joyner Patient seen and examined at bedside. No acute event overnight. Patient still experiencing mild LLQ pain. Patient is tolerating diet. Liquid diet for breakfast then will advance later today. She had a small BM yesterday. Patient is ambulating without difficulty. Denies fever/chills,cp, sob, palpitations, n/v /d. Objective - Vital Signs/Intake and Output Vital Signs (last 24 hours): Temp Pulse Resp BP Pulse Ox 97.8 F 98 H 18 134/94 H 95 12/11/16 05:37 12/11/16 05:37 12/11/16 05:37 12/11/16 05:37 12/11/16 05:37 - Medications Medications: Current Medications Acetaminophen (Tylenol 325mg Tab) 650 mg PO Q4 PRN PRN Reason: Fever >100.4 F Acetaminophen/Butalbital/Caffeine (Fioricet) 2 tab PO Q4 PRN PRN Reason: Migraine headache Amlodipine Besylate (Norvasc) 10 mg PO DAILY [facility] Last Admin: 12/10/16 08:54 Dose: 10 mg Aspirin (Aspirin Chewable) 81 mg PO DAILY [facility] Last Admin: 12/10/16 08:53 Dose: 81 mg Buspirone HCl (Buspar) 10 mg PO TID [facility] Last Admin: 12/10/16 17:25 Dose: 10 mg Digoxin (Lanoxin) 0.125 mg PO DAILY [facility] Last Admin: 12/10/16 08:54 Dose: 0.125 mg Famotidine (Pepcid) 20 mg IVP Q12 [facility] Last Admin: 12/10/16 21:41 Dose: 20 mg Gabapentin (Neurontin) 600 mg PO QID [facility] Last Admin: 12/10/16 21:41 Dose: 600 mg Home Med (Desvenlafaxine Succinate [Pristiq]) 1 tab PO HS [facility] Last Admin: 12/10/16 21:39 Dose: 1 tab Hydromorphone HCl (Dilaudid) 0.5 mg IVP Q4 PRN PRN Reason: Pain, severe (8-10) Last Admin: 12/11/16 06:59 Dose: 0.5 mg Ciprofloxacin (Cipro 400mg/200ml Dsw) 400 mg in 200 mls @ 200 mls/hr IVPB Q12 [facility] Last Admin: 12/10/16 21:39 Dose: 200 mls/hr Metronidazole (Flagyl 500mg/100ml Ns) 100 mls @ 100 mls/hr IVPB Q8 [facility] Last Admin: 12/11/16 01:44 Dose: 100 mls/hr Lactated Ringer's (Lactated Ringer's) 1,000 mls @ 125 mls/hr IV .Q8H [facility] Last Admin: 12/11/16 01:45 Dose: 125 mls/hr Ketorolac Tromethamine (Toradol) 30 mg IVP Q6 PRN PRN Reason: migraine Last Admin: 12/08/16 22:33 Dose: 30 mg Methimazole (Tapazole) 10 mg PO MOTH [facility] Last Admin: 12/10/16 09:00 Dose: 10 mg Metoclopramide HCl (Reglan) 10 mg PO Q6 PRN PRN Reason: Migraine headache Last Admin: 12/09/16 10:31 Dose: 10 mg Ondansetron HCl (Zofran Inj) 4 mg IVP Q4 PRN PRN Reason: Nausea/Vomiting Last Admin: 12/09/16 21:15 Dose: 4 mg - Labs Labs: 12/10/16 05:50 12/10/16 05:50 PT 12.3 Seconds (9.8-13.1) 12/09/16 06:00 INR 1.2 (0.9-1.2) 12/09/16 06:00 - Constitutional Appears: No Acute Distress - Head Exam Head Exam: ATRAUMATIC, NORMOCEPHALIC - Eye Exam Eye Exam: Normal appearance - ENT Exam ENT Exam: Mucous Membranes Moist - Neck Exam Neck Exam: Full ROM - Respiratory Exam Respiratory Exam: NORMAL BREATHING PATTERN - Cardiovascular Exam Cardiovascular Exam: REGULAR RHYTHM - GI/Abdominal Exam GI & Abdominal Exam: Soft, Tenderness (mild LLQ). absent: Distended, Firm, Guarding, Rigid, Rebound - Extremities Exam Extremities Exam: absent: Calf Tenderness - Neurological Exam Neurological Exam: Alert, Awake, Oriented x3 - Psychiatric Exam Psychiatric exam: Normal Affect, Normal Mood - Skin Skin Exam: Dry, Intact, Normal Color, Warm Assessment and Plan - Assessment and Plan (Free Text) Plan: 51 F with Acute sigmoid diverticulitis - Advance diet today - Continue IVF and IV ABX - Pain control - f/U GI recommendations - Will DW Dr. Ar Watson PGY1
[2016-12-11 07:24] LABS: BASO % 0.7 % (0.0-2.0); EOS % 0.1 % (0.0-4.0); HEMOGLOBIN 13.5 g/dL (12.0-16.0); LYMPH % 50.6 % (20.0-40.0); MEAN CELL VOLUME 84.8 fl (81.0-99.0); MEAN CORPUSCULAR HEMOGLOBIN 28.4 pg (27.0-31.0); MEAN CORPUSCULAR HGB CONC 33.5 g/dL (33.0-37.0); MEAN PLATELET VOLUME 9.3 fl (7.2-11.7); MONO # 0.3 K/uL (0.0-0.8); MONO % 8.6 % (0.0-10.0); NEUT # 1.6 K/uL (1.8-7.0); NRBC % 0.3 % (0.0-0.0); RBC 4.74 Mil/uL (3.80-5.20); WHITE BLOOD COUNT 3.9 K/uL (4.8-10.8)
[2016-12-11 07:25] LABS: ALB/GLOB RATIO 1.3 (1.0-2.1); ALBUMIN 3.6 g/dL (3.5-5.0); ALT/SGPT 72 U/L (9-52); AST/SGOT 23 U/L (14-36); BLOOD UREA NITROGEN 3 mg/dl (7-17); GFR AFRICAN-AMERICAN > 60; GFR NON-AFRICAN AMERICAN > 60
[2016-12-11] MEDS ORDERED: Pneumococcal 23-Valent Vaccine IM ONE (07:55)
--- NOTE | 2016-12-11 08:34 | CP.PCM.PN ---
Subjective - Date & Time of Evaluation Date of Evaluation: 12/11/16 Time of Evaluation: 08:36 - Subjective Subjective: no f/c, n/v/d. less headache. still w/ abd pain. tolerating liquid diet case d/c w/ surgery bw noted. lft almost back to normal Objective - Vital Signs/Intake and Output Vital Signs (last 24 hours): Temp Pulse Resp BP Pulse Ox 98.3 F 95 H 18 136/93 H 97 12/11/16 08:00 12/11/16 08:00 12/11/16 08:00 12/11/16 08:00 12/11/16 08:00 - Medications Medications: Current Medications Acetaminophen (Tylenol 325mg Tab) 650 mg PO Q4 PRN PRN Reason: Fever >100.4 F Acetaminophen/Butalbital/Caffeine (Fioricet) 2 tab PO Q4 PRN PRN Reason: Migraine headache Amlodipine Besylate (Norvasc) 10 mg PO DAILY [facility] Last Admin: 12/10/16 08:54 Dose: 10 mg Aspirin (Aspirin Chewable) 81 mg PO DAILY [facility] Last Admin: 12/10/16 08:53 Dose: 81 mg Buspirone HCl (Buspar) 10 mg PO TID [facility] Last Admin: 12/10/16 17:25 Dose: 10 mg Digoxin (Lanoxin) 0.125 mg PO DAILY [facility] Last Admin: 12/10/16 08:54 Dose: 0.125 mg Famotidine (Pepcid) 20 mg IVP Q12 [facility] Last Admin: 12/10/16 21:41 Dose: 20 mg Gabapentin (Neurontin) 600 mg PO QID [facility] Last Admin: 12/10/16 21:41 Dose: 600 mg Home Med (Desvenlafaxine Succinate [Pristiq]) 1 tab PO HS [facility] Last Admin: 12/10/16 21:39 Dose: 1 tab Hydromorphone HCl (Dilaudid) 0.5 mg IVP Q4 PRN PRN Reason: Pain, severe (8-10) Last Admin: 12/11/16 06:59 Dose: 0.5 mg Ciprofloxacin (Cipro 400mg/200ml Dsw) 400 mg in 200 mls @ 200 mls/hr IVPB Q12 [facility] Last Admin: 12/10/16 21:39 Dose: 200 mls/hr Metronidazole (Flagyl 500mg/100ml Ns) 100 mls @ 100 mls/hr IVPB Q8 [facility] Last Admin: 12/11/16 01:44 Dose: 100 mls/hr Lactated Ringer's (Lactated Ringer's) 1,000 mls @ 125 mls/hr IV .Q8H [facility] Last Admin: 12/11/16 01:45 Dose: 125 mls/hr Ketorolac Tromethamine (Toradol) 30 mg IVP Q6 PRN PRN Reason: migraine Last Admin: 12/08/16 22:33 Dose: 30 mg Methimazole (Tapazole) 10 mg PO MOTH [facility] Last Admin: 12/10/16 09:00 Dose: 10 mg Metoclopramide HCl (Reglan) 10 mg PO Q6 PRN PRN Reason: Migraine headache Last Admin: 12/09/16 10:31 Dose: 10 mg Ondansetron HCl (Zofran Inj) 4 mg IVP Q4 PRN PRN Reason: Nausea/Vomiting Last Admin: 12/09/16 21:15 Dose: 4 mg - Labs Labs: 12/11/16 06:00 12/11/16 06:00 PT 12.3 Seconds (9.8-13.1) 12/09/16 06:00 INR 1.2 (0.9-1.2) 12/09/16 06:00 - Constitutional Appears: Well, Non-toxic, No Acute Distress - Head Exam Head Exam: ATRAUMATIC, NORMAL INSPECTION, NORMOCEPHALIC - Eye Exam Eye Exam: EOMI, Normal appearance, PERRL Pupil Exam: NORMAL ACCOMODATION, PERRL - ENT Exam ENT Exam: Mucous Membranes Moist, Normal Exam - Neck Exam Neck Exam: Full ROM, Normal Inspection. absent: Lymphadenopathy - Respiratory Exam Respiratory Exam: Clear to Ausculation Bilateral, NORMAL BREATHING PATTERN - Cardiovascular Exam Cardiovascular Exam: REGULAR RHYTHM, RRR, +S1, +S2. absent: Murmur - GI/Abdominal Exam GI & Abdominal Exam: Soft, Tenderness, Normal Bowel Sounds Additional comments: mild lower abd tenderness - Extremities Exam Extremities Exam: Full ROM, Normal Capillary Refill, Normal Inspection. absent : Joint Swelling, Pedal Edema - Back Exam Back Exam: NORMAL INSPECTION - Neurological Exam Neurological Exam: Alert, Awake, CN II-XII Intact, Normal Gait, Oriented x3 - Psychiatric Exam Psychiatric exam: Normal Affect, Normal Mood - Skin Skin Exam: Dry, Intact, Normal Color, Warm Assessment and Plan (1) DVT prophylaxis Status: Acute (2) Diverticulitis large intestine Status: Acute (3) Atrial fibrillation Status: Acute (4) Elevated LFTs Status: Acute - Assessment and Plan (Free Text) Assessment: (1) DVT prophylaxis Assessment and Plan: scd dylan ehpenny lovenox started today as surgery unlikely, was initially held incase pt was for surgical repair of perf of diverticulitis Status: Acute (2) Diverticulitis large intestine Assessment and Plan: cipro/falgyl surgery/gi start cld per dr aldana-toleratiung well, adv as per surgery pain and nausea control pain decreased Status: Acute (3) Atrial fibrillation no further episodes Assessment and Plan: ?? r/t fever cardio cont home meds Status: Acute (4) Elevated LFTs Assessment and Plan: ?? r/t tylenol for pain, will moniotr, gi trending down Status: Acute [id number], reglan, fioricet ct head as pt has lue numbness-ct negative
[2016-12-11] MEDS: Ciprofloxacin 400mg/200ml D5W 400 MG/200 ML BAG IVPB SCH ×2 (09:09→20:28)
[2016-12-11] MEDS: Digoxin 125 mcg (0.125 mg) Tab PO SCH (09:10)
[2016-12-11] MEDS: Enoxaparin 40 mg Syringe SC SCH ×2 (12:07→12:52)
[2016-12-11] MEDS: DESVENLAFAXINE SUCCINATE PO SCH (21:59)
[2016-12-12] MEDS: metroNIDAZOLE 500mg/100ml NS 100 ML IVPB SCH ×3 (00:39→18:00)
[2016-12-12] MEDS: Lactated Ringer's 1,000 ML IV SCH ×2 (03:35→14:21)
--- NOTE | 2016-12-12 07:13 | CP.PCM.PN ---
Subjective - Date & Time of Evaluation Date of Evaluation: 12/12/16 Time of Evaluation: 06:30 - Subjective Subjective: General Surgery Progress Note for Dr. Joyner Patient seen and examined at bedside. No acute event overnight. She is resting in bed comfortably. Patient still experiencing abdominal pain, more in epigastrium now. Patient states she had minor dsicomfort and bloating with soft diet. Patient is ambulating without difficulty. Denies fever/chills, cp, sob, palpitations, n/v/d. Objective - Vital Signs/Intake and Output Vital Signs (last 24 hours): Temp Pulse Resp BP Pulse Ox 98.6 F 98 H 18 121/84 94 L 12/12/16 05:38 12/12/16 05:38 12/12/16 05:38 12/12/16 05:38 12/12/16 05:38 - Medications Medications: Current Medications Acetaminophen (Tylenol 325mg Tab) 650 mg PO Q4 PRN PRN Reason: Fever >100.4 F Acetaminophen/Butalbital/Caffeine (Fioricet) 2 tab PO Q4 PRN PRN Reason: Migraine headache Amlodipine Besylate (Norvasc) 10 mg PO DAILY [facility] Last Admin: 12/11/16 09:11 Dose: 10 mg Aspirin (Aspirin Chewable) 81 mg PO DAILY [facility] Last Admin: 12/11/16 09:08 Dose: 81 mg Buspirone HCl (Buspar) 10 mg PO TID [facility] Last Admin: 12/11/16 16:55 Dose: 10 mg Digoxin (Lanoxin) 0.125 mg PO DAILY [facility] Last Admin: 12/11/16 09:10 Dose: 0.125 mg Enoxaparin Sodium (Lovenox) 40 mg SC DAILY [facility] PRN Reason: Protocol Last Admin: 12/11/16 12:52 Dose: Not Given Famotidine (Pepcid) 20 mg IVP Q12 [facility] Last Admin: 12/11/16 20:27 Dose: 20 mg Gabapentin (Neurontin) 600 mg PO QID [facility] Last Admin: 12/11/16 21:59 Dose: 600 mg Home Med (Desvenlafaxine Succinate [Pristiq]) 1 tab PO HS [facility] Last Admin: 12/11/16 21:59 Dose: 1 tab Hydromorphone HCl (Dilaudid) 0.5 mg IVP Q4 PRN PRN Reason: Pain, severe (8-10) Last Admin: 12/12/16 04:02 Dose: 0.5 mg Ciprofloxacin (Cipro 400mg/200ml Dsw) 400 mg in 200 mls @ 200 mls/hr IVPB Q12 [facility] Last Admin: 12/11/16 20:28 Dose: 200 mls/hr Metronidazole (Flagyl 500mg/100ml Ns) 100 mls @ 100 mls/hr IVPB Q8 [facility] Last Admin: 12/12/16 00:39 Dose: 100 mls/hr Lactated Ringer's (Lactated Ringer's) 1,000 mls @ 125 mls/hr IV .Q8H [facility] Last Admin: 12/12/16 03:35 Dose: 125 mls/hr Ketorolac Tromethamine (Toradol) 30 mg IVP Q6 PRN PRN Reason: migraine Last Admin: 12/11/16 20:28 Dose: 30 mg Methimazole (Tapazole) 10 mg PO MOTH [facility] Last Admin: 12/10/16 09:00 Dose: 10 mg Metoclopramide HCl (Reglan) 10 mg PO Q6 PRN PRN Reason: Migraine headache Last Admin: 12/09/16 10:31 Dose: 10 mg Ondansetron HCl (Zofran Inj) 4 mg IVP Q4 PRN PRN Reason: Nausea/Vomiting Last Admin: 12/11/16 15:51 Dose: 4 mg - Labs Labs: 12/11/16 06:00 12/11/16 06:00 PT 12.3 Seconds (9.8-13.1) 12/09/16 06:00 INR 1.2 (0.9-1.2) 12/09/16 06:00 - Constitutional Appears: No Acute Distress - Head Exam Head Exam: ATRAUMATIC, NORMOCEPHALIC - Eye Exam Eye Exam: Normal appearance - ENT Exam ENT Exam: Mucous Membranes Moist - Neck Exam Neck Exam: Full ROM - Respiratory Exam Respiratory Exam: NORMAL BREATHING PATTERN - Cardiovascular Exam Cardiovascular Exam: REGULAR RHYTHM - GI/Abdominal Exam GI & Abdominal Exam: Soft, Tenderness (epigastric/RUQ). absent: Distended, Firm , Guarding, Rigid, Rebound - Extremities Exam Extremities Exam: absent: Calf Tenderness - Back Exam Back Exam: absent: CVA tenderness (L), CVA tenderness (R) - Neurological Exam Neurological Exam: Alert, Awake, Oriented x3 - Psychiatric Exam Psychiatric exam: Normal Affect, Normal Mood - Skin Skin Exam: Dry, Intact, Normal Color, Warm Assessment and Plan - Assessment and Plan (Free Text) Plan: 51 F with Acute sigmoid diverticulitis - Continue IVF and IV ABX - Pain control - Keep diet as soft for now, ADAT - Will BREA Watson PGY1
--- NOTE | 2016-12-12 08:06 | CP.PCM.PN ---
Subjective - Date & Time of Evaluation Date of Evaluation: 12/12/16 Time of Evaluation: 08:07 - Subjective Subjective: pt doing better. blanka food w/ some pain and bloating. at present. no f/,c n/v/d. no headache. pt refused lovenox/heparin yesterday stating that she had a reaction last visit to these meds. bw and surgical consults noted. Objective - Vital Signs/Intake and Output Vital Signs (last 24 hours): Temp Pulse Resp BP Pulse Ox 98.6 F 98 H 18 121/84 94 L 12/12/16 05:38 12/12/16 05:38 12/12/16 05:38 12/12/16 05:38 12/12/16 05:38 - Medications Medications: Current Medications Acetaminophen (Tylenol 325mg Tab) 650 mg PO Q4 PRN PRN Reason: Fever >100.4 F Acetaminophen/Butalbital/Caffeine (Fioricet) 2 tab PO Q4 PRN PRN Reason: Migraine headache Amlodipine Besylate (Norvasc) 10 mg PO DAILY [facility] Last Admin: 12/11/16 09:11 Dose: 10 mg Aspirin (Aspirin Chewable) 81 mg PO DAILY [facility] Last Admin: 12/11/16 09:08 Dose: 81 mg Buspirone HCl (Buspar) 10 mg PO TID [facility] Last Admin: 12/11/16 16:55 Dose: 10 mg Digoxin (Lanoxin) 0.125 mg PO DAILY [facility] Last Admin: 12/11/16 09:10 Dose: 0.125 mg Enoxaparin Sodium (Lovenox) 40 mg SC DAILY [facility] PRN Reason: Protocol Last Admin: 12/11/16 12:52 Dose: Not Given Famotidine (Pepcid) 20 mg IVP Q12 [facility] Last Admin: 12/11/16 20:27 Dose: 20 mg Gabapentin (Neurontin) 600 mg PO QID [facility] Last Admin: 12/11/16 21:59 Dose: 600 mg Home Med (Desvenlafaxine Succinate [Pristiq]) 1 tab PO HS [facility] Last Admin: 12/11/16 21:59 Dose: 1 tab Hydromorphone HCl (Dilaudid) 0.5 mg IVP Q4 PRN PRN Reason: Pain, severe (8-10) Last Admin: 12/12/16 04:02 Dose: 0.5 mg Ciprofloxacin (Cipro 400mg/200ml Dsw) 400 mg in 200 mls @ 200 mls/hr IVPB Q12 [facility] Last Admin: 12/11/16 20:28 Dose: 200 mls/hr Metronidazole (Flagyl 500mg/100ml Ns) 100 mls @ 100 mls/hr IVPB Q8 [facility] Last Admin: 12/12/16 00:39 Dose: 100 mls/hr Lactated Ringer's (Lactated Ringer's) 1,000 mls @ 125 mls/hr IV .Q8H [facility] Last Admin: 12/12/16 03:35 Dose: 125 mls/hr Ketorolac Tromethamine (Toradol) 30 mg IVP Q6 PRN PRN Reason: migraine Last Admin: 12/11/16 20:28 Dose: 30 mg Methimazole (Tapazole) 10 mg PO MOTH [facility] Last Admin: 12/10/16 09:00 Dose: 10 mg Metoclopramide HCl (Reglan) 10 mg PO Q6 PRN PRN Reason: Migraine headache Last Admin: 12/09/16 10:31 Dose: 10 mg Ondansetron HCl (Zofran Inj) 4 mg IVP Q4 PRN PRN Reason: Nausea/Vomiting Last Admin: 12/11/16 15:51 Dose: 4 mg - Labs Labs: 12/11/16 06:00 12/11/16 06:00 PT 12.3 Seconds (9.8-13.1) 12/09/16 06:00 INR 1.2 (0.9-1.2) 12/09/16 06:00 - Constitutional Appears: Well, Non-toxic, No Acute Distress - Head Exam Head Exam: ATRAUMATIC, NORMAL INSPECTION, NORMOCEPHALIC - Eye Exam Eye Exam: EOMI, Normal appearance, PERRL Pupil Exam: NORMAL ACCOMODATION, PERRL - ENT Exam ENT Exam: Mucous Membranes Moist, Normal Exam - Neck Exam Neck Exam: Full ROM, Normal Inspection. absent: Lymphadenopathy - Respiratory Exam Respiratory Exam: Clear to Ausculation Bilateral, NORMAL BREATHING PATTERN - Cardiovascular Exam Cardiovascular Exam: REGULAR RHYTHM, RRR, +S1, +S2. absent: Murmur - GI/Abdominal Exam GI & Abdominal Exam: Soft, Tenderness, Normal Bowel Sounds Additional comments: mild lower abd pain - Exam Exam: Circumcision - Extremities Exam Extremities Exam: Full ROM, Normal Capillary Refill, Normal Inspection. absent : Joint Swelling, Pedal Edema - Back Exam Back Exam: NORMAL INSPECTION - Neurological Exam Neurological Exam: Alert, Awake, CN II-XII Intact, Normal Gait, Oriented x3 - Psychiatric Exam Psychiatric exam: Normal Affect, Normal Mood - Skin Skin Exam: Dry, Intact, Normal Color, Warm Assessment and Plan (1) DVT prophylaxis Status: Acute (2) Diverticulitis large intestine Status: Acute (3) Atrial fibrillation Status: Acute (4) Elevated LFTs Status: Acute - Assessment and Plan (Free Text) Assessment: (1) DVT prophylaxis Assessment and Plan: scd dylan ehose lovenox/heparin will be dc r/t reported adverse rxn Status: Acute (2) Diverticulitis large intestine Assessment and Plan: cipro/falgyl surgery/gi start cld per dr aldana-toleratiung well, adv as per surgery pain and nausea control pain decreased Status: Acute (3) Atrial fibrillation no further episodes Assessment and Plan: ?? r/t fever cardio cont home meds Status: Acute (4) Elevated LFTs Assessment and Plan: ?? r/t tylenol for pain, will moniotr, gi trending down Status: Acute [id number], reglan, fioricet ct head as pt has lue numbness-ct negative improving
[2016-12-12 08:20] VITALS: RESP 20
[2016-12-12] MEDS: Digoxin 125 mcg (0.125 mg) Tab PO SCH (09:28)
[2016-12-12] MEDS: Ciprofloxacin 400mg/200ml D5W 400 MG/200 ML BAG IVPB SCH ×2 (09:36→21:20)
[2016-12-12 09:57] LABS: BASO % 0.9 % (0.0-2.0); EOS % 0.1 % (0.0-4.0); HEMOGLOBIN 12.7 g/dL (12.0-16.0); LYMPH # 2.2 K/uL (1.0-4.3); LYMPH % 54.8 % (20.0-40.0); MEAN CELL VOLUME 86.6 fl (81.0-99.0); MEAN CORPUSCULAR HEMOGLOBIN 28.1 pg (27.0-31.0); MEAN CORPUSCULAR HGB CONC 32.4 g/dL (33.0-37.0); MEAN PLATELET VOLUME 8.8 fl (7.2-11.7); MONO # 0.3 K/uL (0.0-0.8); MONO % 7.5 % (0.0-10.0); NEUT # 1.5 K/uL (1.8-7.0); NEUT % 36.7 % (50.0-75.0); RBC 4.53 Mil/uL (3.80-5.20); RED CELL DISTRIBUTION WIDTH 14.2 % (11.5-14.5)
[2016-12-12 10:07] LABS: ALB/GLOB RATIO 1.3 (1.0-2.1); ALBUMIN 3.6 g/dL (3.5-5.0); ALT/SGPT 72 U/L (9-52); AST/SGOT 31 U/L (14-36); BLOOD UREA NITROGEN 4 mg/dl (7-17); CALCIUM 8.9 mg/dL (8.4-10.2); GFR AFRICAN-AMERICAN > 60; GFR NON-AFRICAN AMERICAN > 60
--- NOTE | 2016-12-12 11:13 | CP.PCM.PN ---
Subjective - Date & Time of Evaluation Date of Evaluation: 12/12/16 Time of Evaluation: 11:00 - Subjective Subjective: pt states allergic to lovenox, xarelto, pradaxa, coumadin. on d/c should have eliquis started. We should await full resolution of her GI illness. Objective - Vital Signs/Intake and Output Vital Signs (last 24 hours): Temp Pulse Resp BP Pulse Ox 98.4 F 71 20 117/78 97 12/12/16 08:20 12/12/16 09:28 12/12/16 08:20 12/12/16 09:28 12/12/16 08:20 - Medications Medications: Current Medications Acetaminophen (Tylenol 325mg Tab) 650 mg PO Q4 PRN PRN Reason: Fever >100.4 F Acetaminophen/Butalbital/Caffeine (Fioricet) 2 tab PO Q4 PRN PRN Reason: Migraine headache Amlodipine Besylate (Norvasc) 10 mg PO DAILY [facility] Last Admin: 12/12/16 09:28 Dose: 10 mg Aspirin (Aspirin Chewable) 81 mg PO DAILY [facility] Last Admin: 12/12/16 09:29 Dose: 81 mg Buspirone HCl (Buspar) 10 mg PO TID [facility] Last Admin: 12/12/16 09:28 Dose: 10 mg Digoxin (Lanoxin) 0.125 mg PO DAILY [facility] Last Admin: 12/12/16 09:28 Dose: 0.125 mg Enoxaparin Sodium (Lovenox) 40 mg SC DAILY [facility] PRN Reason: Protocol Last Admin: 12/11/16 12:52 Dose: Not Given Famotidine (Pepcid) 20 mg IVP Q12 [facility] Last Admin: 12/11/16 20:27 Dose: 20 mg Gabapentin (Neurontin) 600 mg PO QID [facility] Last Admin: 12/12/16 09:29 Dose: 600 mg Home Med (Desvenlafaxine Succinate [Pristiq]) 1 tab PO HS [facility] Last Admin: 12/11/16 21:59 Dose: 1 tab Hydromorphone HCl (Dilaudid) 0.5 mg IVP Q4 PRN PRN Reason: Pain, severe (8-10) Last Admin: 12/12/16 09:25 Dose: 0.5 mg Ciprofloxacin (Cipro 400mg/200ml Dsw) 400 mg in 200 mls @ 200 mls/hr IVPB Q12 [facility] Last Admin: 12/12/16 09:36 Dose: 200 mls/hr Metronidazole (Flagyl 500mg/100ml Ns) 100 mls @ 100 mls/hr IVPB Q8 [facility] Last Admin: 12/12/16 09:35 Dose: 100 mls/hr Lactated Ringer's (Lactated Ringer's) 1,000 mls @ 125 mls/hr IV .Q8H [facility] Last Admin: 12/12/16 03:35 Dose: 125 mls/hr Ketorolac Tromethamine (Toradol) 30 mg IVP Q6 PRN PRN Reason: migraine Last Admin: 12/11/16 20:28 Dose: 30 mg Methimazole (Tapazole) 10 mg PO MOTH [facility] Last Admin: 12/10/16 09:00 Dose: 10 mg Metoclopramide HCl (Reglan) 10 mg PO Q6 PRN PRN Reason: Migraine headache Last Admin: 12/09/16 10:31 Dose: 10 mg Ondansetron HCl (Zofran Inj) 4 mg IVP Q4 PRN PRN Reason: Nausea/Vomiting Last Admin: 12/11/16 15:51 Dose: 4 mg - Labs Labs: 12/12/16 09:30 12/12/16 09:30 PT 12.3 Seconds (9.8-13.1) 12/09/16 06:00 INR 1.2 (0.9-1.2) 12/09/16 06:00 - Constitutional Appears: Well, Non-toxic - Head Exam Head Exam: ATRAUMATIC, NORMAL INSPECTION, NORMOCEPHALIC - Eye Exam Eye Exam: EOMI, Normal appearance, PERRL. absent: Conjunctival injection, Nystagmus, Periorbital swelling, Periorbital tenderness, Scleral icterus Pupil Exam: NORMAL ACCOMODATION, PERRL - ENT Exam ENT Exam: Mucous Membranes Moist, Normal Exam. absent: Mucous Membranes Dry, Normal External Ear Exam, Normal Oropharynx, TM's Normal Bilaterally - Neck Exam Neck Exam: Full ROM, Normal Inspection. absent: Lymphadenopathy, Meningismus, Tenderness, Thyromegaly - Respiratory Exam Respiratory Exam: Clear to Ausculation Bilateral, NORMAL BREATHING PATTERN. absent: Accessory Muscle Use, Chest Wall Tenderness, Decreased Breath Sounds, Prolonged Expiratory Phase, Rales, Rhonchi, Wheezes, Respiratory Distress, Stridor - Cardiovascular Exam Cardiovascular Exam: Irregular Rhythm, +S1, +S2, Murmur - GI/Abdominal Exam GI & Abdominal Exam: Soft, Normal Bowel Sounds. absent: Bruit, Distended, Firm , Guarding, Rigid, Tenderness, Diminished Bowel Sounds, Hernia, Hyperactive Bowel Sounds, Hypoactive Bowel Sounds, Organomegaly, Pulsatile Mass, Rebound, Mass - Rectal Exam Rectal Exam: Deferred - Extremities Exam Extremities Exam: Full ROM, Normal Capillary Refill, Normal Inspection. absent : Calf Tenderness, Joint Swelling, Pedal Edema, Tenderness - Back Exam Back Exam: NORMAL INSPECTION. absent: CVA tenderness (L), CVA tenderness (R), Full ROM, muscle spasm, paraspinal tenderness, rash noted, tenderness, vertebral tenderness - Neurological Exam Neurological Exam: Alert, Awake, CN II-XII Intact, Normal Gait, Oriented x3. absent: Abnormal Gait, Altered, Motor Sensory Deficit, Reflexes Normal - Psychiatric Exam Psychiatric exam: Normal Affect, Normal Mood. absent: Agitated, Anxious, Depressed, Flat Affect, Homicidal Ideation, Manic, Suicidal Ideation - Skin Skin Exam: Dry, Intact, Normal Color, Warm. absent: Abrasion, Cyanosis, Diaphoretic, Erythema, Mottled, Pallor, Pallor, Petechiae, Rash, Urticaria, Vesicles Assessment and Plan (1) Diverticulitis large intestine Status: Acute (2) Atrial fibrillation Status: Acute (3) HTN (hypertension) Status: Chronic (4) Hyperthyroidism Status: Chronic - Assessment and Plan (Free Text) Plan: PT HAS A CHAADS2 SCORE OF 1. SHE IS INTERMEDIATE RISK FOR CVA. GIVEN HER AGE I RECOMMEND ELIQUIS ONCE GI PATHOLOGY HAS RESOLVED. 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 PT IS REFUSING LOVENOX. SHE STATES SHE HAD HEPATOPATHY FROM LOVENOX IN PAST. 60 MIN TOTAL CARE TIME.
[2016-12-12] MEDS: Enoxaparin 40 mg Syringe SC SCH (14:26)
[2016-12-12] MEDS: DESVENLAFAXINE SUCCINATE PO SCH (22:20)
[2016-12-13] MEDS: Apap-Butalbital-Caffeine 325-50-40mg Tab PO PRN ×2 (01:07→20:40)
[2016-12-13] MEDS: metroNIDAZOLE 500mg/100ml NS 100 ML IVPB SCH ×3 (01:08→17:46)
[2016-12-13 06:40] LABS: BASO % 0.8 % (0.0-2.0); EOS % 0.1 % (0.0-4.0); HEMOGLOBIN 13.2 g/dL (12.0-16.0); LYMPH # 2.2 K/uL (1.0-4.3); LYMPH % 38.8 % (20.0-40.0); MEAN CELL VOLUME 85.7 fl (81.0-99.0); MEAN CORPUSCULAR HEMOGLOBIN 28.2 pg (27.0-31.0); MEAN CORPUSCULAR HGB CONC 32.9 g/dL (33.0-37.0); MEAN PLATELET VOLUME 9.3 fl (7.2-11.7); MONO # 0.4 K/uL (0.0-0.8); MONO % 7.3 % (0.0-10.0); RBC 4.69 Mil/uL (3.80-5.20); RED CELL DISTRIBUTION WIDTH 14.2 % (11.5-14.5); WHITE BLOOD COUNT 5.7 K/uL (4.8-10.8)
[2016-12-13 06:50] LABS: ALB/GLOB RATIO 1.4 (1.0-2.1); ALT/SGPT 79 U/L (9-52); AST/SGOT 65 U/L (14-36); BLOOD UREA NITROGEN 6 mg/dl (7-17); CALCIUM 9.2 mg/dL (8.4-10.2); GFR AFRICAN-AMERICAN > 60; GFR NON-AFRICAN AMERICAN > 60
--- NOTE | 2016-12-13 08:27 | CP.PCM.PN ---
Subjective - Date & Time of Evaluation Date of Evaluation: 12/13/16 Time of Evaluation: 08:25 - Subjective Subjective: pt comfortable in bed, no distress, no f/c, n/v/d. bw noted slight upward trend of lft. states had abd pain/gas pain last night pepcid not helping gerd pt reporting spo2 on ra drops to upper 80s, per rn spo2 in 90s all night, will do off o2 sat this am. no dyspnea, cp, cough/congestion. Objective - Vital Signs/Intake and Output Vital Signs (last 24 hours): Temp Pulse Resp BP Pulse Ox 97.5 F L 90 20 128/76 97 12/13/16 05:20 12/13/16 05:20 12/13/16 05:20 12/13/16 05:20 12/13/16 05:20 - Medications Medications: Current Medications Acetaminophen (Tylenol 325mg Tab) 650 mg PO Q4 PRN PRN Reason: Fever >100.4 F Acetaminophen/Butalbital/Caffeine (Fioricet) 2 tab PO Q4 PRN PRN Reason: Migraine headache Last Admin: 12/13/16 01:07 Dose: 2 tab Amlodipine Besylate (Norvasc) 10 mg PO DAILY [facility] Last Admin: 12/12/16 09:28 Dose: 10 mg Aspirin (Aspirin Chewable) 81 mg PO DAILY [facility] Last Admin: 12/12/16 09:29 Dose: 81 mg Buspirone HCl (Buspar) 10 mg PO TID [facility] Last Admin: 12/12/16 18:02 Dose: 10 mg Digoxin (Lanoxin) 0.125 mg PO DAILY [facility] Last Admin: 12/12/16 09:28 Dose: 0.125 mg Enoxaparin Sodium (Lovenox) 40 mg SC DAILY [facility] PRN Reason: Protocol Last Admin: 12/12/16 14:26 Dose: Not Given Gabapentin (Neurontin) 600 mg PO QID [facility] Last Admin: 12/12/16 22:21 Dose: 600 mg Home Med (Desvenlafaxine Succinate [Pristiq]) 1 tab PO HS [facility] Last Admin: 12/12/16 22:20 Dose: 1 tab Hydromorphone HCl (Dilaudid) 0.5 mg IVP Q4 PRN PRN Reason: Pain, severe (8-10) Last Admin: 12/12/16 22:17 Dose: 0.5 mg Ciprofloxacin (Cipro 400mg/200ml Dsw) 400 mg in 200 mls @ 200 mls/hr IVPB Q12 [facility] Last Admin: 12/12/16 21:20 Dose: 200 mls/hr Metronidazole (Flagyl 500mg/100ml Ns) 100 mls @ 100 mls/hr IVPB Q8 [facility] Last Admin: 12/13/16 01:08 Dose: 100 mls/hr Ketorolac Tromethamine (Toradol) 30 mg IVP Q6 PRN PRN Reason: migraine Last Admin: 12/11/16 20:28 Dose: 30 mg Methimazole (Tapazole) 10 mg PO MOTH [facility] Last Admin: 12/10/16 09:00 Dose: 10 mg Metoclopramide HCl (Reglan) 10 mg PO Q6 PRN PRN Reason: Migraine headache Last Admin: 12/09/16 10:31 Dose: 10 mg Ondansetron HCl (Zofran Inj) 4 mg IVP Q4 PRN PRN Reason: Nausea/Vomiting Last Admin: 12/12/16 20:18 Dose: 4 mg Pantoprazole Sodium (Protonix Inj) 40 mg IVP DAILY [facility] - Labs Labs: 12/13/16 05:00 12/13/16 05:00 PT 12.3 Seconds (9.8-13.1) 12/09/16 06:00 INR 1.2 (0.9-1.2) 12/09/16 06:00 Assessment and Plan (1) DVT prophylaxis Status: Acute (2) Diverticulitis large intestine Status: Acute (3) Atrial fibrillation Status: Acute (4) Elevated LFTs Status: Acute - Assessment and Plan (Free Text) Assessment: (1) DVT prophylaxis Assessment and Plan: scd dylan ehose lovenox/heparin will be dc r/t reported adverse rxn Status: Acute (2) Diverticulitis large intestine Assessment and Plan: cipro/falgyl surgery/gi start cld per dr aldana-toleratiung well, adv as per surgery pain and nausea control dc pepcid, start protonix iv as pt states pepcid not working Status: Acute (3) Atrial fibrillation no further episodes Assessment and Plan: ?? r/t fever cardio cont home meds Status: Acute (4) Elevated LFTs Assessment and Plan: ?? r/t tylenol for pain, will moniotr, gi trending down if cont to trend up will get us Status: Acute [id number], reglan, fioricet ct head as pt has lue numbness-ct negative low spo2 will do ra spo2, chest imaging as indicated, pt advised ambulation
--- NOTE | 2016-12-13 09:34 | CP.PCM.PN ---
<Rhonda Coker - Last Filed: 12/13/16 09:30> Subjective - Date & Time of Evaluation Date of Evaluation: 12/13/16 Time of Evaluation: 09:30 - Subjective Subjective: General Surgery - Dr. Giron Pt S&E. Overnight pt states that she had episodes of worsening epigastric pain a few hours after she ate. She states it has subsided somewhat now. She still has some lower abdominal pain as well but states that this seems to be improving. She is tolerating soft diet. No N/V, F/C, SOB/Cp. Objective - Vital Signs/Intake and Output Vital Signs (last 24 hours): Temp Pulse Resp BP Pulse Ox 97.7 F 104 H 20 135/98 H 96 12/13/16 09:03 12/13/16 09:03 12/13/16 09:03 12/13/16 09:03 12/13/16 09:03 - Medications Medications: Current Medications Acetaminophen (Tylenol 325mg Tab) 650 mg PO Q4 PRN PRN Reason: Fever >100.4 F Acetaminophen/Butalbital/Caffeine (Fioricet) 2 tab PO Q4 PRN PRN Reason: Migraine headache Last Admin: 12/13/16 01:07 Dose: 2 tab Amlodipine Besylate (Norvasc) 10 mg PO DAILY [facility] Last Admin: 12/12/16 09:28 Dose: 10 mg Aspirin (Aspirin Chewable) 81 mg PO DAILY [facility] Last Admin: 12/12/16 09:29 Dose: 81 mg Buspirone HCl (Buspar) 10 mg PO TID [facility] Last Admin: 12/12/16 18:02 Dose: 10 mg Digoxin (Lanoxin) 0.125 mg PO DAILY [facility] Last Admin: 12/12/16 09:28 Dose: 0.125 mg Enoxaparin Sodium (Lovenox) 40 mg SC DAILY [facility] PRN Reason: Protocol Last Admin: 12/12/16 14:26 Dose: Not Given Gabapentin (Neurontin) 600 mg PO QID [facility] Last Admin: 12/12/16 22:21 Dose: 600 mg Home Med (Desvenlafaxine Succinate [Pristiq]) 1 tab PO HS [facility] Last Admin: 12/12/16 22:20 Dose: 1 tab Hydromorphone HCl (Dilaudid) 0.5 mg IVP Q4 PRN PRN Reason: Pain, severe (8-10) Last Admin: 12/12/16 22:17 Dose: 0.5 mg Ciprofloxacin (Cipro 400mg/200ml Dsw) 400 mg in 200 mls @ 200 mls/hr IVPB Q12 [facility] Last Admin: 12/12/16 21:20 Dose: 200 mls/hr Metronidazole (Flagyl 500mg/100ml Ns) 100 mls @ 100 mls/hr IVPB Q8 [facility] Last Admin: 12/13/16 01:08 Dose: 100 mls/hr Ketorolac Tromethamine (Toradol) 30 mg IVP Q6 PRN PRN Reason: migraine Last Admin: 12/11/16 20:28 Dose: 30 mg Methimazole (Tapazole) 10 mg PO MOTH [facility] Last Admin: 12/10/16 09:00 Dose: 10 mg Metoclopramide HCl (Reglan) 10 mg PO Q6 PRN PRN Reason: Migraine headache Last Admin: 12/09/16 10:31 Dose: 10 mg Ondansetron HCl (Zofran Inj) 4 mg IVP Q4 PRN PRN Reason: Nausea/Vomiting Last Admin: 12/12/16 20:18 Dose: 4 mg Pantoprazole Sodium (Protonix Inj) 40 mg IVP DAILY [facility] - Labs Labs: 12/13/16 05:00 12/13/16 05:00 PT 12.3 Seconds (9.8-13.1) 12/09/16 06:00 INR 1.2 (0.9-1.2) 12/09/16 06:00 - Constitutional Appears: No Acute Distress - Head Exam Head Exam: ATRAUMATIC, NORMAL INSPECTION, NORMOCEPHALIC - Eye Exam Eye Exam: Normal appearance - Respiratory Exam Respiratory Exam: NORMAL BREATHING PATTERN. absent: Respiratory Distress - GI/Abdominal Exam GI & Abdominal Exam: Guarding (voluntary in suprapubic region), Soft, Tenderness (suprapubic>LLQ). absent: Distended, Rigid, Rebound - Neurological Exam Neurological Exam: Alert, Oriented x3 - Psychiatric Exam Psychiatric exam: Normal Affect, Normal Mood - Skin Skin Exam: Dry, Intact Assessment and Plan - Assessment and Plan (Free Text) Assessment: 51 F with Acute sigmoid diverticulitis - Continue liquids and soft diet, if pain worsens transition back to liquid diet - Continue IVF and IV ABX - Pain control - Encourage OOB and Ambulation - PPI for GERD - F/U GI evaluation as pt will need eventual colonoscopy and poss. EGD d/t worsening upper gi symptoms Will DW Dr Mack Coker PGY3 <Souleymane Giron - Last Filed: 12/13/16 11:21> Objective - Vital Signs/Intake and Output Vital Signs (last 24 hours): Temp Pulse Resp BP Pulse Ox 97.7 F 104 H 20 135/98 H 96 12/13/16 09:03 12/13/16 10:27 12/13/16 09:03 12/13/16 10:27 12/13/16 09:03 - Medications Medications: Current Medications Acetaminophen (Tylenol 325mg Tab) 650 mg PO Q4 PRN PRN Reason: Fever >100.4 F Acetaminophen/Butalbital/Caffeine (Fioricet) 2 tab PO Q4 PRN PRN Reason: Migraine headache Last Admin: 12/13/16 01:07 Dose: 2 tab Amlodipine Besylate (Norvasc) 10 mg PO DAILY [facility] Last Admin: 12/13/16 10:27 Dose: 10 mg Aspirin (Aspirin Chewable) 81 mg PO DAILY [facility] Last Admin: 12/13/16 10:01 Dose: 81 mg Buspirone HCl (Buspar) 10 mg PO TID [facility] Last Admin: 12/13/16 10:27 Dose: 10 mg Digoxin (Lanoxin) 0.125 mg PO DAILY [facility] Last Admin: 12/13/16 10:26 Dose: 0.125 mg Gabapentin (Neurontin) 600 mg PO QID [facility] Last Admin: 12/13/16 10:27 Dose: 600 mg Home Med (Desvenlafaxine Succinate [Pristiq]) 1 tab PO HS [facility] Last Admin: 12/12/16 22:20 Dose: 1 tab Hydromorphone HCl (Dilaudid) 0.5 mg IVP Q4 PRN PRN Reason: Pain, severe (8-10) Last Admin: 12/13/16 10:24 Dose: 0.5 mg Ciprofloxacin (Cipro 400mg/200ml Dsw) 400 mg in 200 mls @ 200 mls/hr IVPB Q12 [facility] Last Admin: 12/13/16 09:59 Dose: 200 mls/hr Metronidazole (Flagyl 500mg/100ml Ns) 100 mls @ 100 mls/hr IVPB Q8 [facility] Last Admin: 12/13/16 09:59 Dose: 100 mls/hr Ketorolac Tromethamine (Toradol) 30 mg IVP Q6 PRN PRN Reason: migraine Last Admin: 12/11/16 20:28 Dose: 30 mg Methimazole (Tapazole) 10 mg PO MOTH [facility] Last Admin: 12/13/16 10:27 Dose: 10 mg Metoclopramide HCl (Reglan) 10 mg PO Q6 PRN PRN Reason: Migraine headache Last Admin: 12/09/16 10:31 Dose: 10 mg Ondansetron HCl (Zofran Inj) 4 mg IVP Q4 PRN PRN Reason: Nausea/Vomiting Last Admin: 12/12/16 20:18 Dose: 4 mg Pantoprazole Sodium (Protonix Inj) 40 mg IVP DAILY [facility] Last Admin: 12/13/16 10:46 Dose: 40 mg - Labs Labs: 12/13/16 05:00 12/13/16 05:00 PT 12.3 Seconds (9.8-13.1) 12/09/16 06:00 INR 1.2 (0.9-1.2) 12/09/16 06:00 Assessment and Plan - Assessment and Plan (Free Text) Plan: Pt still having abdominal pain, agree with plan to send pt to TCU for abx
[2016-12-13] MEDS: Ciprofloxacin 400mg/200ml D5W 400 MG/200 ML BAG IVPB SCH (09:59)
[2016-12-13] MEDS: Digoxin 125 mcg (0.125 mg) Tab PO SCH (10:26)
[2016-12-13 10:27] VITALS: PULSE 104
[2016-12-13 20:55] VITALS: BP 117/74; PULSE 97; TEMP 98.3; O2SAT 98
[2016-12-13] MEDS: DESVENLAFAXINE SUCCINATE PO SCH (22:42)
--- NOTE | 2016-12-14 00:59 | CP.PCM.PN ---
Subjective - Date & Time of Evaluation Date of Evaluation: 12/11/16 Time of Evaluation: 18:00 - Subjective Subjective: no overnight events Objective - Vital Signs/Intake and Output Vital Signs (last 24 hours): Temp Pulse Resp BP Pulse Ox 98.3 F 97 H 20 117/74 98 12/13/16 20:54 12/13/16 20:54 12/13/16 20:54 12/13/16 20:54 12/13/16 20:54 Intake and Output: 12/13/16 12/14/16 18:59 06:59 Intake Total 1310 Balance 1310 - Labs Labs: 12/13/16 05:00 12/13/16 05:00 PT 12.3 Seconds (9.8-13.1) 12/09/16 06:00 INR 1.2 (0.9-1.2) 12/09/16 06:00 - Neck Exam Neck Exam: Normal Inspection - Respiratory Exam Respiratory Exam: NORMAL BREATHING PATTERN - GI/Abdominal Exam GI & Abdominal Exam: Soft, Tenderness, Normal Bowel Sounds Assessment and Plan - Assessment and Plan (Free Text) Assessment: 51 yo female with complicated diverticulitis abx surgical evaluation advance diet slowly outpatient colonoscopy
--- NOTE | 2016-12-14 01:00 | CP.PCM.PN ---
Subjective - Date & Time of Evaluation Date of Evaluation: 12/12/16 Time of Evaluation: 17:00 - Subjective Subjective: doing better Objective - Vital Signs/Intake and Output Vital Signs (last 24 hours): Temp Pulse Resp BP Pulse Ox 98.3 F 97 H 20 117/74 98 12/13/16 20:54 12/13/16 20:54 12/13/16 20:54 12/13/16 20:54 12/13/16 20:54 Intake and Output: 12/13/16 12/14/16 18:59 06:59 Intake Total 1310 Balance 1310 - Labs Labs: 12/13/16 05:00 12/13/16 05:00 PT 12.3 Seconds (9.8-13.1) 12/09/16 06:00 INR 1.2 (0.9-1.2) 12/09/16 06:00 - Head Exam Head Exam: NORMAL INSPECTION - Eye Exam Eye Exam: Normal appearance - Neck Exam Neck Exam: Normal Inspection - Respiratory Exam Respiratory Exam: NORMAL BREATHING PATTERN - GI/Abdominal Exam GI & Abdominal Exam: Soft, Normal Bowel Sounds Assessment and Plan - Assessment and Plan (Free Text) Assessment: 51 yo female with complicated diverticulitis abx surgical input appreciated advance diet slowly outpatient colonoscopy
--- NOTE | 2016-12-14 01:02 | CP.PCM.PN ---
Subjective - Date & Time of Evaluation Date of Evaluation: 12/13/16 Time of Evaluation: 17:10 - Subjective Subjective: no complaints Objective - Vital Signs/Intake and Output Vital Signs (last 24 hours): Temp Pulse Resp BP Pulse Ox 98.3 F 97 H 20 117/74 98 12/13/16 20:54 12/13/16 20:54 12/13/16 20:54 12/13/16 20:54 12/13/16 20:54 Intake and Output: 12/13/16 12/14/16 18:59 06:59 Intake Total 1310 Balance 1310 - Labs Labs: 12/13/16 05:00 12/13/16 05:00 PT 12.3 Seconds (9.8-13.1) 12/09/16 06:00 INR 1.2 (0.9-1.2) 12/09/16 06:00 - Head Exam Head Exam: NORMOCEPHALIC - Eye Exam Eye Exam: Normal appearance - Respiratory Exam Respiratory Exam: NORMAL BREATHING PATTERN - GI/Abdominal Exam GI & Abdominal Exam: Soft, Normal Bowel Sounds Assessment and Plan - Assessment and Plan (Free Text) Assessment: 51 yo female with complicated diverticulitis abx advance diet slowly TCU planning outpatient colonoscopy
--- NOTE | 2016-12-14 08:15 | CON ---
DATE: 12/08/2016 HISTORY OF PRESENT ILLNESS: This is a pleasant 51-year-old female with a history of atrial fibrillation with ablation who comes in for diverticulitis with microperforation, states she has pain for the past 24 to 48 hours. She had diverticulitis in the past. She thinks now she has some pain left lower quadrant. No fevers, chills, nausea, vomiting. Currently, lying in the bed comfortably, in no apparent distress. PAST MEDICAL HISTORY: As above. PAST SURGICAL HISTORY: As above. MEDICATIONS: Reviewed. REVIEW OF SYSTEMS: All other systems have been reviewed and negative apart from the HPI. PHYSICAL EXAMINATION: VITAL SIGNS: In the hospital grossly remarkable for pleasant middle-aged female lying in bed comfortable, in no apparent distress. HEENT: Head is normocephalic atraumatic. Eyes, pupils are equal, round, and reactive to light bilaterally. No conjunctival pallor or icterus. NECK: Supple. Normal range of motion. No lymphadenopathy appreciated. LUNGS: Coarse breath sounds bilaterally. HEART: S1 and S2. Regular rate and rhythm. No murmurs appreciated. ABDOMEN: Soft, discomfort in the left lower quadrant. No rebound. No guarding. RECTAL: Deferred. EXTREMITIES: Pulses felt bilaterally. SKIN: Warm, dry, and intact. NEUROLOGIC: A and O x3. LABORATORY DATA: Labs and radiology have been reviewed. Radiology shows a CAT scan shows microperforation in the sigmoid with diverticulitis. Labs include WBC of 11.3, hemoglobin 11.9, hematocrit 36.7. AST 53, ALT 13, alkaline phosphatase 137. ASSESSMENT AND PLAN: This is a 51-year-old female with microperforation with diverticulitis. From GI standpoint, antibiotics for now, , will need a colonoscopy at some point, but no sooner than six to eight weeks upon discharge. For now, advance diet slowly, clear liquid diet once pain free. Thank you for the consult. Harpreet Caraballo MD/ PhD cc:
== END 2016-12-13 22:52 | DRG 392 ==
LOC: H.ER 14:11 → H.ERHOLD 16:52 → H.TEL 21:39 → UNDODISIN 12-08 15:20
PROVIDERS: ADMIT Family Medicine; ATTEND Family Medicine
DX: K57.20 Diverticulitis of large intestine with perforation and abscess without bleeding (principal); I48.2 Chronic atrial fibrillation; E05.90 Thyrotoxicosis, unspecified without thyrotoxic crisis or storm; G43.909 Migraine, unspecified, not intractable, without status migrainosus; I12.9 Hypertensive chronic kidney disease with stage 1 through stage 4 chronic kidney disease, or unspecified chronic kidney disease; K21.9 Gastro-esophageal reflux disease without esophagitis; N18.9 Chronic kidney disease, unspecified; G89.29 Other chronic pain; D64.9 Anemia, unspecified; F41.9 Anxiety disorder, unspecified; Z87.442 Personal history of urinary calculi; Z87.01 Personal history of pneumonia (recurrent); Z87.891 Personal history of nicotine dependence; Z91.041 Radiographic dye allergy status

== ENCOUNTER 2016-12-13 14:59 | Inpatient (IN) | payer MEDICARE ==
[2016-12-13 21:37] VITALS: BMI 33.5
[2016-12-13] MEDS ORDERED: Oxycodone/Acetaminophen 5/325 mg Tab PO PRN (23:41)
[2016-12-13] MEDS ORDERED: Metoclopramide 10 mg/10 ml Cup PO PRN (23:55)
[2016-12-13] MEDS ORDERED: Apap-Butalbital-Caffeine 325-50-40mg Tab PO PRN (23:55)
[2016-12-14] MEDS: Oxycodone/Acetaminophen 5/325 mg Tab PO PRN ×6 (00:39→22:27)
[2016-12-14] MEDS: metroNIDAZOLE 500mg/100ml NS 100 ML IVPB SCH ×3 (04:15→21:53)
[2016-12-14] MEDS: Ciprofloxacin 400mg/200ml D5W 400 MG/200 ML BAG IVPB SCH ×2 (06:42→17:44)
--- NOTE | 2016-12-14 07:37 | CP.PCM.PN ---
Subjective - Date & Time of Evaluation Date of Evaluation: 12/14/16 Time of Evaluation: 07:34 - Subjective Subjective: General Surgery - Dr. Giron Pt S&ETej YUN. Yesterday pt was transferred to TCU from floor. She is doing well and states her lower abdominal pain is slightly improved today. She is tolerating soft diet and denies any N/V, F/C. Objective - Vital Signs/Intake and Output Vital Signs (last 24 hours): Temp Pulse Resp BP Pulse Ox 98 12/14/16 02:10 - Medications Medications: Current Medications Acetaminophen/Butalbital/Caffeine (Fioricet) 2 tab PO Q4 PRN PRN Reason: Migraine headache Amlodipine Besylate (Norvasc) 10 mg PO DAILY [facility] Aspirin (Aspirin Chewable) 81 mg PO DAILY [facility] Buspirone HCl (Buspar) 10 mg PO TID [facility] Digoxin (Lanoxin) 0.125 mg PO DAILY [facility] Gabapentin (Neurontin) 600 mg PO QID [facility] Home Med (Desvenlafaxine Succinate [Pristiq]) 50 mg PO HS [facility] Ciprofloxacin (Cipro 400mg/200ml Dsw) 400 mg in 200 mls @ 200 mls/hr IVPB Q12@ 0500,1700 [facility] Last Admin: 12/14/16 06:42 Dose: 200 mls/hr Metronidazole (Flagyl 500mg/100ml Ns) 100 mls @ 100 mls/hr IVPB Q8@0500,1300, 2100 [facility] Last Admin: 12/14/16 04:15 Dose: 100 mls/hr Methimazole (Tapazole) 10 mg PO MOTH [facility] Stop: 12/17/16 06:44 Methimazole (Tapazole) 10 mg PO MOTH [facility] Metoclopramide HCl (Reglan) 10 mg PO Q6 PRN PRN Reason: Migraine headache Ondansetron HCl (Zofran Inj) 4 mg IVP Q4 PRN PRN Reason: Nausea/Vomiting Oxycodone/Acetaminophen (Percocet 5/325 Mg Tab) 1 tab PO Q4 PRN PRN Reason: Pain, moderate (4-7) Stop: 12/16/16 23:42 Oxycodone/Acetaminophen (Percocet 5/325 Mg Tab) 2 tab PO Q4 PRN PRN Reason: Pain, severe (8-10) Stop: 12/16/16 23:44 Last Admin: 12/14/16 04:22 Dose: 2 tab Pantoprazole Sodium (Protonix Ec Tab) 40 mg PO DAILY [facility] - Constitutional Appears: No Acute Distress - Head Exam Head Exam: ATRAUMATIC, NORMAL INSPECTION, NORMOCEPHALIC - Eye Exam Eye Exam: Normal appearance - Respiratory Exam Respiratory Exam: NORMAL BREATHING PATTERN. absent: Respiratory Distress - GI/Abdominal Exam GI & Abdominal Exam: Guarding (volunatry), Soft, Tenderness (suprapubic and RLQ) . absent: Distended, Firm, Rigid, Rebound - Neurological Exam Neurological Exam: Alert, Oriented x3 - Psychiatric Exam Psychiatric exam: Normal Affect, Normal Mood - Skin Skin Exam: Dry, Intact Assessment and Plan - Assessment and Plan (Free Text) Assessment: 51 F with Acute sigmoid diverticulitis - Continue soft/low residue diet - IV ABX - PPI for GERD - Pain control prn - Encourage OOB/Ambulation/PT DW Dr Mack Coker PGY3
--- NOTE | 2016-12-14 09:01 | CP.PCM.HP ---
History of Present Illness - History of Present Illness History of Present Illness: pt admitted to tcu for 1 wk anbx and monitoring of diverticulitis w/ microperf. doing well, no pain at present. no f/c, n/v/d surgical note appriciated. Present on Admission - Present on Admission Any Indicators Present on Admission: No Review of Systems - Gastrointestinal Gastrointestinal: As Per HPI, Abdominal Pain Past Patient History - Tetanus Immunizations Tetanus Immunization: Unknown - Past Medical History & Family History Past Medical History?: Yes - Past Social History Smoking Status: Former Smoker - CARDIAC Hx Cardiac Disorders: Yes Hx Atrial Fibrillation: Yes (s/p Heart Catheter Ablation in 2012) Hx Hypertension: Yes - PULMONARY Hx Respiratory Disorders: Yes Hx Pneumonia: Yes - NEUROLOGICAL Hx Neurological Disorder: Yes Hx Migraine: Yes Hx Seizures: Yes (ALLERGIC REACTION TO IV IODINE) - HEENT Hx HEENT Problems: No - RENAL Hx Chronic Kidney Disease: Yes Hx Kidney Stones: Yes (STILL THERE "TINY") - ENDOCRINE/METABOLIC Hx Endocrine Disorders: Yes Hx Hyperthyroidism: Yes - HEMATOLOGICAL/ONCOLOGICAL Hx AIDS: No Hx Human Immunodeficiency Virus (HIV): No - INTEGUMENTARY Hx Dermatological Problems: No - MUSCULOSKELETAL/RHEUMATOLOGICAL Hx Musculoskeletal Disorders: Yes Hx Arthritis: Yes Hx Falls: No Hx Fractures: Yes (R ankle) - GASTROINTESTINAL Hx Gastrointestinal Disorders: Yes Hx Gastroesophageal Reflux: Yes - GENITOURINARY/GYNECOLOGICAL Hx Genitourinary Disorders: No - PSYCHIATRIC Hx Psychophysiologic Disorder: Yes Hx Anxiety: Yes Hx Depression: Yes Hx Substance Use: No - SURGICAL HISTORY Hx Surgeries: Yes Hx Cholecystectomy: Yes (1997) - ANESTHESIA Hx Anesthesia: Yes Hx Anesthesia Reactions: No Hx Malignant Hyperthermia: No Meds Allergies/Adverse Reactions: Allergies Allergy/AdvReac Type Severity Reaction Status Date / Time cefazolin sodium [From Ancef] Allergy RASH Verified 11/25/16 06:59 iodine Allergy convulsions Verified 11/25/16 06:59 enoxaparin [From Lovenox] AdvReac VOMITING Verified 12/12/16 08:09 heparin AdvReac VOMITING Verified 12/12/16 08:09 meperidine HCl [From Demerol] AdvReac anxiety Verified 11/25/16 06:59 prochlorperazine AdvReac anxiety Verified 11/25/16 06:59 [From Compazine] prochlorperazine edisylate AdvReac anxiety Verified 11/25/16 06:59 [From Compazine] prochlorperazine maleate AdvReac anxiety Verified 11/25/16 06:59 [From Compazine] Physical Exam - Constitutional Appears: Well, Non-toxic, No Acute Distress - Head Exam Head Exam: ATRAUMATIC, NORMAL INSPECTION, NORMOCEPHALIC - Eye Exam Eye Exam: EOMI, Normal appearance, PERRL Pupil Exam: NORMAL ACCOMODATION, PERRL - ENT Exam ENT Exam: Mucous Membranes Moist, Normal Exam - Neck Exam Neck exam: Positive for: Normal Inspection - Respiratory Exam Respiratory Exam: Clear to Auscultation Bilateral, NORMAL BREATHING PATTERN - Cardiovascular Exam Cardiovascular Exam: REGULAR RHYTHM, RRR, +S1, +S2 - GI/Abdominal Exam GI & Abdominal Exam: Normal Bowel Sounds, Soft. absent: Tenderness - Extremities Exam Extremities exam: Positive for: full ROM, normal capillary refill, normal inspection, pedal pulses present - Back Exam Back exam: NORMAL INSPECTION - Neurological Exam Neurological exam: Alert, CN II-XII Intact, Normal Gait, Oriented x3, Reflexes Normal - Psychiatric Exam Psychiatric exam: Normal Affect, Normal Mood - Skin Skin Exam: Dry, Intact, Normal Color, Warm Results - Vital Signs Recent Vital Signs: Last Vital Signs Temp Pulse Resp BP Pulse Ox 98 12/14/16 02:10 Assessment & Plan (1) Atrial fibrillation Assessment and Plan: asa rate controll Status: Acute (2) DVT prophylaxis Assessment and Plan: scd and aehose hose no lovenox/heparin r/t adverse rxn Status: Acute (3) Diverticulitis large intestine Assessment and Plan: tcu for 1 wk iv anbx pain control ppi for gerd surgery following diet as blanka Status: Acute Decision To Admit - Pt Status Changed To: Hospital Disposition Of: Inpatient - Admit Certification Admit to Inpatient:: After my assessment, the patient will require hospitalization for at least two midnights. This is because of the severity of symptoms shown, intensity of services needed, and/or the medical risk in this patient being treated as an outpatient. - . Bed Request Type: Transitional Care Unit Admitting Physician: Jen Elliott
[2016-12-14] MEDS: Digoxin 125 mcg (0.125 mg) Tab PO SCH (09:10)
[2016-12-14] MEDS: Pantoprazole 40 mg EC Tab PO SCH (09:11)
--- NOTE | 2016-12-14 12:41 | RAD ---
HISTORY: md order COMPARISON: Comparison chest 11/01/2016 TECHNIQUE: Chest PA and lateral FINDINGS: LUNGS: No active pulmonary disease. PLEURA: No significant pleural effusion identified. No pneumothorax apparent. CARDIOVASCULAR: Normal. OSSEOUS STRUCTURES: Mild multilevel degenerative spondylosis of the thoracic spine VISUALIZED UPPER ABDOMEN: Normal. OTHER FINDINGS: None. IMPRESSION: No active disease.
[2016-12-14] MEDS: DESVENLAFAXINE SUCCINATE 50 MG PO SCH (21:52)
[2016-12-14] MEDS: Lactulose 10 gm/15 ml Syrup PO PRN (22:30)
[2016-12-15] MEDS: Oxycodone/Acetaminophen 5/325 mg Tab PO PRN ×4 (03:10→16:54)
[2016-12-15] MEDS: metroNIDAZOLE 500mg/100ml NS 100 ML IVPB SCH ×3 (04:56→22:29)
[2016-12-15] MEDS: Ciprofloxacin 400mg/200ml D5W 400 MG/200 ML BAG IVPB SCH ×2 (05:52→16:49)
[2016-12-15 09:04] VITALS: RESP 20
[2016-12-15] MEDS: Pantoprazole 40 mg EC Tab PO SCH (09:22)
[2016-12-15] MEDS: Digoxin 125 mcg (0.125 mg) Tab PO SCH (09:23)
[2016-12-15] MEDS: Lactulose 10 gm/15 ml Syrup PO PRN (16:55)
[2016-12-15] MEDS: DESVENLAFAXINE SUCCINATE 50 MG PO SCH (22:28)
[2016-12-16] MEDS: metroNIDAZOLE 500mg/100ml NS 100 ML IVPB SCH ×3 (04:51→22:42)
[2016-12-16] MEDS: Ciprofloxacin 400mg/200ml D5W 400 MG/200 ML BAG IVPB SCH ×2 (04:52→17:41)
[2016-12-16] MEDS: Oxycodone/Acetaminophen 5/325 mg Tab PO PRN (08:32)
[2016-12-16] MEDS: Digoxin 125 mcg (0.125 mg) Tab PO SCH (08:34)
[2016-12-16] MEDS: Pantoprazole 40 mg EC Tab PO SCH (08:34)
--- NOTE | 2016-12-16 09:38 | CP.PCM.PN ---
Subjective - Date & Time of Evaluation Date of Evaluation: 12/16/16 Time of Evaluation: 09:38 - Subjective Subjective: no distress/complaints except chronic m/s pain. no f/c, n/v/d. no abd pain asking when she can go home. Objective - Vital Signs/Intake and Output Vital Signs (last 24 hours): Temp Pulse Resp BP Pulse Ox 98.6 F 99 H 20 130/88 100 12/16/16 08:29 12/16/16 08:34 12/16/16 08:29 12/15/16 17:07 12/16/16 08:29 - Medications Medications: Current Medications Acetaminophen/Butalbital/Caffeine (Fioricet) 2 tab PO Q4 PRN PRN Reason: Migraine headache Amlodipine Besylate (Norvasc) 10 mg PO DAILY [facility] Last Admin: 12/16/16 08:34 Dose: 10 mg Aspirin (Aspirin) 325 mg PO DAILY [facility] Last Admin: 12/16/16 08:43 Dose: 325 mg Buspirone HCl (Buspar) 10 mg PO TID [facility] Last Admin: 12/16/16 08:34 Dose: 10 mg Digoxin (Lanoxin) 0.125 mg PO DAILY [facility] Last Admin: 12/16/16 08:34 Dose: 0.125 mg Docusate Sodium (Colace) 100 mg PO BID [facility] Last Admin: 12/16/16 08:34 Dose: 100 mg Gabapentin (Neurontin) 600 mg PO QID [facility] Last Admin: 12/16/16 08:35 Dose: 600 mg Home Med (Desvenlafaxine Succinate [Pristiq]) 50 mg PO HS [facility] Last Admin: 12/15/16 22:28 Dose: 50 mg Ciprofloxacin (Cipro 400mg/200ml Dsw) 400 mg in 200 mls @ 200 mls/hr IVPB Q12@ 0500,1700 [facility] Last Admin: 12/16/16 04:52 Dose: 200 mls/hr Metronidazole (Flagyl 500mg/100ml Ns) 100 mls @ 100 mls/hr IVPB Q8@0500,1300, 2100 [facility] Last Admin: 12/16/16 04:51 Dose: 100 mls/hr Lactulose (Enulose) 10 gm PO HS PRN PRN Reason: Constipation Last Admin: 12/15/16 16:55 Dose: 10 gm Methimazole (Tapazole) 10 mg PO MOTH [facility] Stop: 12/17/16 06:44 Methimazole (Tapazole) 10 mg PO MOTH [facility] Metoclopramide HCl (Reglan) 10 mg PO Q6 PRN PRN Reason: Migraine headache Ondansetron HCl (Zofran Inj) 4 mg IVP Q4 PRN PRN Reason: Nausea/Vomiting Oxycodone/Acetaminophen (Percocet 5/325 Mg Tab) 1 tab PO Q4 PRN PRN Reason: Pain, moderate (4-7) Stop: 12/16/16 23:42 Oxycodone/Acetaminophen (Percocet 5/325 Mg Tab) 2 tab PO Q4 PRN PRN Reason: Pain, severe (8-10) Stop: 12/16/16 23:44 Last Admin: 12/16/16 08:32 Dose: 2 tab Pantoprazole Sodium (Protonix Ec Tab) 40 mg PO DAILY [facility] Last Admin: 12/16/16 08:34 Dose: 40 mg - Constitutional Appears: Well, Non-toxic, No Acute Distress - Head Exam Head Exam: ATRAUMATIC, NORMAL INSPECTION, NORMOCEPHALIC - Eye Exam Eye Exam: EOMI, Normal appearance, PERRL Pupil Exam: NORMAL ACCOMODATION, PERRL - ENT Exam ENT Exam: Mucous Membranes Moist, Normal Exam - Neck Exam Neck Exam: Full ROM, Normal Inspection. absent: Lymphadenopathy - Respiratory Exam Respiratory Exam: Clear to Ausculation Bilateral, NORMAL BREATHING PATTERN - Cardiovascular Exam Cardiovascular Exam: REGULAR RHYTHM, RRR, +S1, +S2. absent: Murmur - GI/Abdominal Exam GI & Abdominal Exam: Soft, Normal Bowel Sounds. absent: Tenderness - Extremities Exam Extremities Exam: Full ROM, Normal Capillary Refill, Normal Inspection. absent : Joint Swelling, Pedal Edema - Back Exam Back Exam: NORMAL INSPECTION - Neurological Exam Neurological Exam: Alert, Awake, CN II-XII Intact, Normal Gait, Oriented x3 - Psychiatric Exam Psychiatric exam: Normal Affect, Normal Mood - Skin Skin Exam: Dry, Intact, Normal Color, Warm Assessment and Plan (1) Atrial fibrillation Status: Acute (2) DVT prophylaxis Status: Acute (3) Diverticulitis large intestine Status: Acute - Assessment and Plan (Free Text) Assessment: (1) Atrial fibrillation Assessment and Plan: asa rate controll Status: Acute (2) DVT prophylaxis Assessment and Plan: scd and aehose hose no lovenox/heparin r/t adverse rxn Status: Acute (3) Diverticulitis large intestine Assessment and Plan: tcu for 1 wk iv anbx pain control ppi for gerd surgery following diet as blanka Status: Acute 4-chronic pain, advised oob, pain control will d/c w/ sw for po anbx and dc as per pts wishes tomorrow
[2016-12-16 21:52] VITALS: TEMP 97.9
[2016-12-16] MEDS: DESVENLAFAXINE SUCCINATE 50 MG PO SCH (22:41)
[2016-12-17] MEDS: metroNIDAZOLE 500mg/100ml NS 100 ML IVPB SCH (04:24)
[2016-12-17] MEDS: Ciprofloxacin 400mg/200ml D5W 400 MG/200 ML BAG IVPB SCH (04:25)
[2016-12-17] MEDS: Pantoprazole 40 mg EC Tab PO SCH (09:11)
[2016-12-17] MEDS: Digoxin 125 mcg (0.125 mg) Tab PO SCH (09:12)
[2016-12-17 09:13] VITALS: BP 122/82; PULSE 98
[2016-12-17 09:40] VITALS: O2SAT 98
--- NOTE | 2016-12-17 09:54 | CP.PCM.DIS ---
Provider - Provider Date of Admission: 12/13/16 23:00 Attending physician: Jen Elliott MD Time Spent in preparation of Discharge (in minutes): 15 Diagnosis - Discharge Diagnosis (1) Atrial fibrillation Status: Acute (2) DVT prophylaxis Status: Acute (3) Diverticulitis large intestine Status: Acute Discharge Exam - Head Exam Head Exam: ATRAUMATIC, NORMAL INSPECTION, NORMOCEPHALIC Discharge Plan - Discharge Medications Prescriptions: Ciprofloxacin [Cipro] 500 mg PO BID #10 tab Metronidazole [Flagyl] 500 mg PO Q8 #15 tab - Follow Up Plan Condition: GOOD Disposition: HOME/ ROUTINE Additional Instructions: pt asking to be dc. cleared by surgery 5 more days po anbx f/u outpt gi and surgery final dx-diverticulitis w/ microperf
== END 2016-12-17 11:50 | disposition home or self-care (01) | DRG 392 ==
LOC: H.TCU 23:00
PROVIDERS: ADMIT Family Medicine; ATTEND Family Medicine
PROC: F07Z9FZ Gait Training/Functional Ambulation Treatment using Assistive, Adaptive, Supportive or Protective Equipment (ICD-10-PCS; principal; 2016-12-13)
PROC: F08Z4FZ Home Management Treatment using Assistive, Adaptive, Supportive or Protective Equipment (ICD-10-PCS; 2016-12-13)
PROC: 3E03329 Introduction of Other Anti-infective into Peripheral Vein, Percutaneous Approach (ICD-10-PCS; 2016-12-13)
DX: K57.32 Diverticulitis of large intestine without perforation or abscess without bleeding (principal); I48.91 Unspecified atrial fibrillation; I12.9 Hypertensive chronic kidney disease with stage 1 through stage 4 chronic kidney disease, or unspecified chronic kidney disease; G89.29 Other chronic pain; K21.9 Gastro-esophageal reflux disease without esophagitis; N18.9 Chronic kidney disease, unspecified; Z87.01 Personal history of pneumonia (recurrent); Z87.442 Personal history of urinary calculi; Z87.891 Personal history of nicotine dependence; Z88.8 Allergy status to other drugs, medicaments and biological substances; Z91.041 Radiographic dye allergy status

== ENCOUNTER 2017-03-17 00:46 | Emergency (ER) | payer MEDICARE ==
[2017-03-17 00:47] VITALS: PULSE 98
[2017-03-17 01:02] VITALS: BP 132/79; PULSE 95; RESP 18; TEMP 98; O2SAT 99
[2017-03-17] MEDS ORDERED: Sodium Chloride 0.9% 1,000 ML IV STA (01:14)
[2017-03-17] MEDS ORDERED: DiphenhydrAMINE 50 mg/ml Inj IVP STA (01:14)
[2017-03-17] MEDS ORDERED: DiphenhydrAMINE 50 mg/ml Inj ONE (01:18)
--- NOTE | 2017-03-17 01:31 | ED PDOC ---
HPI: Headache Time Seen by Provider: 03/17/17 01:03 Chief Complaint (Nursing): Headache History Per: Patient History/Exam Limitations: no limitations Onset/Duration Of Symptoms: Hrs Current Symptoms Are (Timing): Still Present Quality: Tightness Preceeding Symptoms: None Associated Symptoms: Photophobia, Nausea Additional Complaint(s): Hx of migraines p/w migraine RODRÍGUEZ, states it started at 7PM, nonthunderclap, gradually worsening, states she's been suffering with migraines since she was 17. +photophobia. No numbness/weakness/loss of function. Pt. states "toradol doesn't work for me". Past Medical History Reviewed: Historical Data, Nursing Documentation Vital Signs: Last Vital Signs Temp 98.0 F 03/17/17 00:55 Pulse 95 H 03/17/17 00:55 Resp 18 03/17/17 00:55 BP 132/79 03/17/17 00:55 Pulse Ox 99 03/17/17 00:55 - Medical History PMH: Anemia, Anxiety, Arthritis, Atrial Fibrillation (s/p Heart Catheter Ablation in 2012), Cardia Arrhythmia (A-FIB/HAD ABLATION), Depression, Fractures (R ankle), HTN, Hyperthyroidism, Kidney Stones (STILL THERE "TINY"), Migraine, Pneumonia, Chronic Kidney Disease, Seizures (ALLERGIC REACTION TO IV IODINE) Denies: HIV - Surgical History Surgical History: Cholecystectomy (1997) - Family History Family History: States: Hypertension - Home Medications Home Medications: Ambulatory Orders Medication Instructions Recorded Gabapentin [Neurontin] 600 mg PO QID 11/01/16 Omeprazole 20 mg PO DAILY 11/01/16 Oxycodone HCl/Acetaminophen 1 tab PO Q6 PRN 11/01/16 [Percocet 7.5-325 mg Tablet] busPIRone [Buspar] 10 mg PO TID 11/01/16 methIMAzole [Tapazole] 10 mg PO MOTH 11/01/16 Aspirin [Aspirin EC] 325 mg PO DAILY 12/07/16 Desvenlafaxine Succinate [Pristiq] 1 tab PO HS 12/07/16 Desvenlafaxine Succinate [Pristiq] 50 mg PO DAILY 12/07/16 Digoxin [Lanoxin] 0.125 mg PO DAILY tab 12/13/16 amLODIPine [Norvasc] 10 mg PO DAILY 12/13/16 Acetaminophen/Butalbital/Caf 2 tab PO Q4 PRN #10 tab 12/17/16 [Fioricet] Ciprofloxacin [Cipro] 500 mg PO BID #10 tab 12/17/16 Metronidazole [Flagyl] 500 mg PO Q8 #15 tab 12/17/16 Aspirin/Acetaminophen/Caffeine 1 each PO Q6 #30 tablet 03/17/17 [Excedrin Migraine Geltab] - Allergies Allergies/Adverse Reactions: Allergies Allergy/AdvReac Type Severity Reaction Status Date / Time cefazolin sodium [From Ancef] Allergy RASH Verified 03/17/17 00:55 iodine Allergy convulsions Verified 03/17/17 00:55 enoxaparin [From Lovenox] AdvReac VOMITING Verified 03/17/17 00:55 heparin AdvReac VOMITING Verified 03/17/17 00:55 meperidine HCl [From Demerol] AdvReac anxiety Verified 03/17/17 00:55 prochlorperazine AdvReac anxiety Verified 03/17/17 00:55 [From Compazine] prochlorperazine edisylate AdvReac anxiety Verified 03/17/17 00:55 [From Compazine] prochlorperazine maleate AdvReac anxiety Verified 03/17/17 00:55 [From Compazine] Review of Systems ROS Statement: Except As Marked, All Systems Reviewed And Found Negative Neurological: Positive for: Headache. Negative for: Weakness, Numbness, Incoordination Physical Exam - Reviewed Nursing Documentation Reviewed: Yes Vital Signs Reviewed: Yes - Physical Exam Appears: Positive for: Well, Non-toxic, No Acute Distress Head Exam: Positive for: ATRAUMATIC, NORMAL INSPECTION, NORMOCEPHALIC Skin: Positive for: Normal Color, Warm, DRY Eye Exam: Positive for: EOMI, Normal appearance, PERRL ENT: Positive for: Normal ENT Inspection Neck: Positive for: Normal, Painless ROM Cardiovascular/Chest: Positive for: Regular Rate, Rhythm Respiratory: Positive for: CNT, Normal Breath Sounds Gastrointestinal/Abdominal: Positive for: Normal Exam, Bowel Sounds, Soft Back: Positive for: Normal Inspection Extremity: Positive for: Normal ROM Neurologic/Psych: Positive for: 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 Negative for: Motor/Sensory Deficits, Cerebellar Tests, Gait, Aphasia, Facial Droop - ECG O2 Sat by Pulse Oximetry: 99 Pulse Ox Interpretation: Normal Medical Decision Making Medical Decision Making: Pt. w/ migraine hx p/w migraine RODRÍGUEZ -not suspected SAH/meningitis or other pathological RODRÍGUEZ -likely migraine -will treat w/ reglan/benadryl and IVF and reassess 5AM: Pt feeling better after fiorecet. Will give referral to neuro. Stable for discharge. Return precautions discussed. Disposition - Clinical Impression Clinical Impression: Headache - Patient ED Disposition Is Patient to be Admitted: No - Disposition Referrals: Moustapha Peñaloza MD [Medical Doctor] - Disposition: Routine/Home Disposition Time: 04:58 Condition: STABLE Prescriptions: Aspirin/Acetaminophen/Caffeine [Excedrin Migraine Geltab] 1 each PO Q6 #30 tablet Instructions: Migraine Headache (ED) Forms: [facility] (T[place]ik)
[2017-03-17] MEDS ORDERED: Promethazine 50 MG in Sodium Chloride 0.9% 50 ML IVPB ONE (02:50)
[2017-03-17] MEDS ORDERED: Apap-Butalbital-Caffeine 325-50-40mg Tab PO STA (04:02)
== END 2017-03-17 05:43 | disposition home or self-care (01) ==
LOC: H.ER 00:46
DX: R51 Headache (principal)
CPT/HCPCS: 96374; 96375; 99283; J1200; J2550; J2765; J7040

== ENCOUNTER 2017-11-08 08:07 | Day surgery (SDC) | payer MEDICARE ==
[2017-11-08] MEDS ORDERED: Lactated Ringer's 500 ML IV ONE (08:24)
[2017-11-08] MEDS ORDERED: Midazolam 2 MG/2 ML VIAL ONE (09:32)
[2017-11-08] MEDS ORDERED: Propofol 10 mg/ml Inj (20 ML) ONE (09:32)
[2017-11-08 10:05] VITALS: TEMP 96.8
[2017-11-08 10:16] VITALS: RESP 13
[2017-11-08 10:59] VITALS: BP 118/77; PULSE 66; O2SAT 99
== END 2017-11-08 11:32 | disposition home or self-care (01) ==
LOC: H.ENDO 08:07
PROVIDERS: ATTEND Internal Medicine Gastroenterology
DX: Z12.11 Encounter for screening for malignant neoplasm of colon (principal); K64.8 Other hemorrhoids
CPT/HCPCS: G0121; J2001; J2250; J2704; J7120

== ENCOUNTER 2017-11-11 11:12 | Day surgery (SDC) | payer MEDICARE, SELFPAY ==
[2017-11-11 11:29] VITALS: O2SAT 96
[2017-11-11 11:59] VITALS: BMI 25.9
[2017-11-11] MEDS ORDERED: Lidocaine 1% Inj (20ml) ONE (13:00)
--- NOTE | 2017-11-11 13:00 | CP.SDSHP ---
Same Day Surgery H & P - History Proposed Procedure: US guided FNA of right thyroid mass Pre-Op Diagnosis: right thyroid mass - Allergies Allergies: Allergies cefazolin sodium [From Ancef] Allergy (Verified 11/11/17 12:07) RASH extremely overwhelming hydroxyzine [From Vistaril] Allergy (Verified 11/11/17 12:10) extremely overwhelming iodine Allergy (Verified 03/17/17 00:55) convulsions enoxaparin [From Lovenox] Adverse Reaction (Verified 11/11/17 12:07) VOMITING affects liver heparin Adverse Reaction (Verified 11/11/17 12:07) VOMITING affects liver meperidine HCl [From Demerol] Adverse Reaction (Verified 11/11/17 12:07) anxiety extremely overwhelming prochlorperazine [From Compazine] Adverse Reaction (Verified 03/17/17 00:55) anxiety prochlorperazine edisylate [From Compazine] Adverse Reaction (Verified 03/17/17 00:55) anxiety prochlorperazine maleate [From Compazine] Adverse Reaction (Verified 03/17/17 00 :55) anxiety - Physical Exam Vital Signs: Vital Signs 11/11/17 11/11/17 11/11/17 11:27 11:48 12:55 Temperature 97.9 F 98.6 F Pulse Rate 84 84 76 Respiratory 22 18 Rate Blood Pressure 120/83 119/76 O2 Sat by Pulse 96 Oximetry Mental Status: Alert & Oriented x3 - Impression Impression: Pt with a 4 cm right thyroid mass. Plan US guided FNA. Informed consent obtained. Pt. Evaluated Today:Candidate for Anesthesia & Procedure: No Short Stay Discharge - Short Stay Discharge Admitting Diagnosis/Reason for Visit: RT THYROID MASS Referrals: Chencho Tinoco MD [Primary Care Provider] -
--- NOTE | 2017-11-11 13:12 | PCM.SURG1 ---
Surgeon's Initial Post Op Note - Surgeon's Notes Surgeon: Deon Rose MD Encephalographer: None Type of Anesthesia: Local Pre-Operative Diagnosis: Right thyroid nodule Operative Findings: US showed a complex 4.5 cm right thyroid mass Post-Operative Diagnosis: Right thyroid nodule Operation Performed: US guided FNA Specimen/Specimens Removed: 25 gauge x 5 passes Estimated Blood Loss: EBL {In ML}: 1 Blood Products Given: N/A Drains Used: No Drains Post-Op Condition: Good Date of Surgery/Procedure: 11/11/17 Time of Surgery/Procedure: 13:10
[2017-11-11 13:50] VITALS: BP 132/80; PULSE 77; RESP 22; TEMP 98.1
--- NOTE | 2017-11-12 10:00 | US ---
PROCEDURE: Date of Procedure: 11/11/2017 PROCEDURE: 1. Ultrasound guided FNA of right thyroid nodule, CPT 73322 2. Ultrasound guidance for FNA, 88474 Medications: 3cc 1% Lidocaine HISTORY: Enlarged right thyroid nodule. TECHNIQUE: Following informed consent and procedure time-out, a limited ultrasound patient's neck confirmed the presence of a 4.5 cm complex right thyroid nodule which is predominantly solid. After the patient's neck was prepped and draped in the usual sterile fashion, the skin was anesthetized with 1% lidocaine. Ultrasound-guided fine needle aspiration was then performed of the dominant right thyroid nodule. A total of 5 passes were made into the nodule with 25 gauge needle under ultrasound guidance. The FNA specimen was sent for routine pathology. Post biopsy ultrasound showed no hematoma. IMPRESSION: Ultrasound-guided FNA of the dominant right thyroid nodule.
== END 2017-11-11 14:20 | disposition home or self-care (01) ==
LOC: H.OPSURG 11:12
PROVIDERS: ATTEND Internal Medicine Endocrinology, Diabetes & Metabolism
DX: E04.1 Nontoxic single thyroid nodule (principal)

== ENCOUNTER 2017-11-22 08:29 | Day surgery (SDC) | payer MEDICARE, SELFPAY ==
[2017-11-22] MEDS ORDERED: Lactated Ringer's 500 ML IV ONE (08:42)
[2017-11-22] MEDS ORDERED: Midazolam 2 MG/2 ML VIAL ONE (09:35)
[2017-11-22] MEDS ORDERED: Propofol 10 mg/ml Inj (20 ML) ONE (09:35)
[2017-11-22 10:43] VITALS: BP 118/71; PULSE 71; RESP 12; TEMP 98; O2SAT 100
== END 2017-11-22 12:45 | disposition home or self-care (01) ==
LOC: H.ENDO 08:29
PROVIDERS: ATTEND Internal Medicine Gastroenterology
DX: R10.13 Epigastric pain (principal); K21.9 Gastro-esophageal reflux disease without esophagitis; I48.91 Unspecified atrial fibrillation; I10 Essential (primary) hypertension; F41.9 Anxiety disorder, unspecified; F32.9 Major depressive disorder, single episode, unspecified; F43.10 Post-traumatic stress disorder, unspecified; E05.90 Thyrotoxicosis, unspecified without thyrotoxic crisis or storm; K31.7 Polyp of stomach and duodenum
CPT/HCPCS: 43239; 88305; J2001; J2250; J2704; J7120